=== PATIENT | female | born 1940 | race Caucasian/White ===

== ENCOUNTER 2020-09-24 09:55 | Outpatient (REF) | payer MEDICARE, SELFPAY ==
[2020-09-24 11:33] LABS: TSH reflex Free T4 0.43 uIU/mL (0.32-4.0)
== END 2020-09-24 09:56 | disposition home or self-care (01) ==
LOC: HO.LAB 09:55
PROVIDERS: PCP Internal Medicine; Visit Provider Internal Medicine
DX: E03.9 Hypothyroidism, unspecified (principal)
CPT/HCPCS: 36415; 84443

== ENCOUNTER 2020-10-03 14:45 | Outpatient (REF) | payer MEDICARE, SELFPAY ==
--- NOTE | ~2020-10-03 | XR_ITS ---
EXAMINATION: RIGHT HAND AND MANDIBLE. CLINICAL INFORMATION: Hypothyroidism. COMPARISON: None TECHNIQUE: 6 views right mandible and 3 views right hand FINDINGS: MANDIBLE: There is a normal symmetry of bilateral mandible rami and the body of the mandible. Bilateral TM joints have symmetrical joint space and are unremarkable. No fracture or dislocation seen. The soft tissues are normal. Visualized paranasal sinuses are well-aerated and clear. RIGHT HAND: There is no visible acute fracture, dislocation or subluxation seen. No bony erosive changes. There is a dense bone island distal and proximal phalanx fifth digit The soft tissues are normal. XR/XR mandible min 4V IMPRESSION: Unremarkable mandible Unremarkable right hand exam.
--- NOTE | ~2020-10-03 | XR_ITS ---
EXAMINATION: RIGHT HAND AND MANDIBLE. CLINICAL INFORMATION: Hypothyroidism. COMPARISON: None TECHNIQUE: 6 views right mandible and 3 views right hand FINDINGS: MANDIBLE: There is a normal symmetry of bilateral mandible rami and the body of the mandible. Bilateral TM joints have symmetrical joint space and are unremarkable. No fracture or dislocation seen. The soft tissues are normal. Visualized paranasal sinuses are well-aerated and clear. RIGHT HAND: There is no visible acute fracture, dislocation or subluxation seen. No bony erosive changes. There is a dense bone island distal and proximal phalanx fifth digit The soft tissues are normal. XR/XR hand RT min 3V IMPRESSION: Unremarkable mandible Unremarkable right hand exam.
== END 2020-10-03 14:46 | disposition home or self-care (01) ==
LOC: HO.XRAY 14:45
PROVIDERS: PCP Internal Medicine; Visit Provider Internal Medicine
DX: M79.641 Pain in right hand (principal); R68.84 Jaw pain; E03.9 Hypothyroidism, unspecified
CPT/HCPCS: 70110; 73130

== ENCOUNTER → 2020-12-31 13:23 | Outpatient (BNVA) | payer MEDICARE, SELFPAY | PROVIDERS: PCP Internal Medicine; Visit Provider Physician Assistant | DX: K59.09 Other constipation (principal) | CPT/HCPCS: Q3014 ==

== ENCOUNTER 2021-01-31 07:42 | Outpatient (REF) | payer MEDICARE, SELFPAY ==
[2021-01-31 08:17] LABS: MANUAL DIFF FLAG NO
[2021-01-31 08:23] LABS: Basophils Percent Auto 0.6 % (0-2); Eosinophils Absolute Auto 0.2 X10*3/uL (0.0-0.4); Eosinophils Percent Auto 2.1 % (0-4); Hemoglobin 12.6 g/dl (12.0-16.0); Imm Gran Abs Auto 0.02 X10*3/uL (0.00-0.03); Imm Gran Pct Auto 0.3 % (0.0-0.4); Lymphocytes Absolute Auto 1.8 X10*3/uL (1.2-4.9); Lymphocytes Percent Auto 25.2 % (20-40); Mean Corpuscular HGB Conc 32.3 g/dl (31.0-35.0); Mean Corpuscular Hemoglobin 30.7 pg (27.0-33.0); Mean Corpuscular Volume 95.1 fL (80-98); Mean Platelet Volume 9.7 fL (9.4-12.3); Monocytes Absolute Auto 1.3 X10*3/uL (0.1-1.2); Monocytes Percent Auto 17.9 % (2-11); Neutrophils Absolute Auto 3.9 X10*3/uL (2.0-8.3); Neutrophils Percent Auto 53.9 % (45-73); Platelet Count 290 X10*3/uL (160-400); Red Cell Distribution Width 13.7 % (11.0-16.0); White Blood Count 7.2 X10*3/uL (4.8-10.8)
[2021-01-31 08:44] LABS: Alanine Aminotransferase 27 U/L (0-31); Albumin Level 4.3 g/dL (3.5-5.0); Alkaline Phosphatase 78 U/L (39-117); Anion Gap 11 (12-20); Aspartate Amino Transferase 22 U/L (5-31); Bilirubin Total 0.4 mg/dL (0.0-1.0); Blood Urea Nitrogen 11 mg/dL (9-16); Calcium 9.4 mg/dL (8.4-10.2); Carbon Dioxide 27 mmol/L (22-29); Chloride 105 mmol/L (96-108); Cholesterol 216 mg/dL; Estimated Glomerular Filt Rate > 60; Glucose Fasting 86 mg/dL (60-99); HDL Cholesterol 54 mg/dL; LDL Cholesterol Calculated 129 mg/dl; Potassium 4.5 mmol/L (3.3-5.1); Sodium 138 mmol/L (135-145); Total Protein 6.6 g/dL (6.5-8.0); Triglycerides 165 mg/dL
[2021-01-31 09:05] LABS: Thyroid Stimulating Hormone 2.92 uIU/mL (0.32-4.0)
== END 2021-01-31 07:43 | disposition home or self-care (01) ==
LOC: HO.LAB 07:42
PROVIDERS: Physician Assistant; PCP Internal Medicine; Visit Provider Internal Medicine
DX: K59.09 Other constipation (principal); G25.0 Essential tremor; E78.5 Hyperlipidemia, unspecified
CPT/HCPCS: 36415; 80053; 80061; 84443; 85025

== ENCOUNTER 2021-02-17 08:34 | Outpatient (REF) | payer MEDICARE, SELFPAY ==
--- NOTE | ~2021-02-17 | MM_ITS ---
EXAMINATION: MM SCREENING DIGITAL BREAST TOMOSYNTHESIS, BILATERAL CLINICAL INFORMATION: Screening. Asymptomatic. The lifetime risk of breast cancer based on the Tyrer-Cuzick Model is 1.7%. COMPARISON: Mammography: February 12, 2020 and studies dating back to November 26, 2016 TECHNIQUE: Digital breast tomosynthesis is performed in both the craniocaudal and mediolateral oblique views along with computer-aided detection (CAD). Synthesized 2D images are generated from the tomosynthesis. FINDINGS: There are scattered areas of fibroglandular density (ACR BI-RADS breast composition Category b). There are no significant masses, abnormal calcifications, or other abnormalities. MM/MM tomosynthesis screening BI IMPRESSION: There are no significant changes from prior study. ASSESSMENT: BI-RADS 1: Negative RECOMMENDATION: Routine annual mammography screening. This patient's information was entered into a reminder system with a target due date for their next mammogram.
== END 2021-02-17 08:35 | disposition home or self-care (01) ==
LOC: HO.MAMMO 08:34
PROVIDERS: PCP Internal Medicine; Visit Provider Internal Medicine
DX: Z12.31 Encounter for screening mammogram for malignant neoplasm of breast (principal)
CPT/HCPCS: 77063; 77067

== ENCOUNTER 2021-03-19 08:00 | Outpatient (REF) | payer MEDICARE, SELFPAY ==
--- NOTE | ~2021-03-19 | MM_ITS ---
EXAMINATION: BONE DENSITOMETRY CLINICAL INDICATION: Menopause. COMPARISON: This is the patient's baseline examination. TECHNIQUE: Using a Contrib DXA System (software version: 13.1) manufactured by [employer], dual-energy x-ray absorptiometry was performed of the lumbar spine and left hip. The images are of good technical quality. Summary results are attached. FINDINGS: AP SPINE L1-L4: BMD 1.090 g/cm2, Z-score 1.5, T-score -0.7, normal. LEFT FEMUR, NECK: BMD 0.790 g/cm2, Z-score 0.6, T-score -1.8, osteopenia. LEFT FEMUR, TOTAL: BMD 0.814 g/cm2, Z-score 0.7, T-score -1.5, osteopenia. IDENTIFIED RISK FACTORS: Early menopause, hysterectomy, history of fracture (adult), height loss, bilateral oophorectomy, secondary osteoporosis. HISTORY OF FRACTURE: Foot. MEDICATIONS: Calcium, vitamin D. MM/XR DEXA axial skeleton IMPRESSION: 1. DIAGNOSIS: Osteopenia based on the lowest T-score value of -1.8 in the femoral neck applying World Health Organization criteria. 2. 10-YEAR FRACTURE RISK PREDICTION, FRAX: Major osteoporotic fracture (clinical spine, forearm, hip or shoulder) 18.2%. Hip fracture 4.7%. 3. Treatment Recommendations: NOF guidelines recommend consideration for treatment in postmenopausal women and men age 50 and older presenting with the following: -A hip or vertebral (clinical or morphometric) fracture. -T-score less than or equal to -2.5 at the femoral neck or spine after appropriate evaluation to exclude secondary causes. -Low bone mass at the hip or spine and a 10-year fracture probability by FRAX of greater than or equal to 3% for hip fracture or greater than or equal to 20% for major osteoporotic fracture based on the [place] adapted WHO algorithm. 4. Other Recommendations: All treatment decisions require clinical judgment and consideration of individual patient factors, including patient preferences, comorbidities, previous drug use, risk factors not captured in the FRAX model (e.g. frailty, falls, vitamin D deficiency, increased bone turnover, interval significant decline in bone density) and possible under or overestimation of fracture risk by FRAX. Additional medical evaluation for secondary cause of low bone mineral density may be appropriate. FUTURE SCAN RECOMMENDATION: People with diagnosed cases of osteoporosis or at high risk for fracture should have regular bone mineral density tests. For patients eligible for Medicare, routine testing is allowed once every 2 years. The testing frequency can be increased to one year for patients who have rapidly progressing disease, those who are receiving or discontinuing medical therapy to restore bone mass, or have additional risk factors.
== END 2021-03-19 08:01 | disposition home or self-care (01) ==
LOC: HO.MAMMO 08:00
PROVIDERS: Visit Provider Internal Medicine
DX: Z13.820 Encounter for screening for osteoporosis (principal); Z78.0 Asymptomatic menopausal state
CPT/HCPCS: 77080

== ENCOUNTER 2021-03-28 12:14 | Outpatient (REF) | payer MEDICARE, SELFPAY ==
[2021-03-28 13:10] LABS: Appearance Urine CLEAR; Color Urine YELLOW; Glucose Urine UA NEG (NEG); Leukocyte Esterase Urine NEG (NEG); Nitrite Urine NEG (NEG); Urine Blood NEG (NEG); Urine Ketones NEG (NEG); Urine Protein NEG (NEG-TRACE)
== END 2021-03-28 12:15 | disposition home or self-care (01) ==
LOC: HO.LAB 12:14
PROVIDERS: PCP Internal Medicine; Visit Provider Internal Medicine
DX: R30.0 Dysuria (principal)
CPT/HCPCS: 81003

== ENCOUNTER 2021-04-21 10:04 | Emergency (ER) | payer MEDICARE, SELFPAY ==
[2021-04-21 12:20] VITALS: BP 153/57; PULSE 70; RESP 18; TEMP 36.8; O2SAT 98; BMI 20.5
--- NOTE | 2021-04-21 12:25 | ED.DIZZY ---
HPI - Dizziness General Chief Complaint: General Medical Stated Complaint: Dizziness Time Seen by Provider: 04/21/21 12:24 Source: patient Mode of arrival: ambulatory Limitations: no limitations History of Present Illness MD elicited complaint: dizziness and lightheadedness Onset (ago): month(s) (1) Timing: gradual onset and intermittent Severity: mild Description: lightheadedness Context: change in body position History of similar symptoms: Yes Exacerbating factors: movement/ambulation and change in body position Relieving factors: nothing Associated symptoms: denies other symptoms Related Data Home Medications Medication Instructions Recorded Confirmed loratadine 10 mg tablet (Allergy 10 mg PO DAILY 04/19/20 02/05/21 Relief (loratadine)) famotidine 10 mg tablet 10 mg PO BID 06/10/20 02/05/21 cholecalciferol (vitamin D3) 25 25 mcg PO DAILY 01/13/21 02/05/21 mcg (1,000 unit) tablet glucosamine-chondroitin 500 mg-400 1 tab PO DAILY 01/13/21 02/05/21 mg tablet melatonin 3 mg tablet 3 mg PO BEDTIME PRN 01/13/21 02/05/21 methocarbamol 500 mg tablet 500 mg PO TID 01/13/21 02/05/21 Previous Rx's Medication Instructions Recorded levothyroxine 75 mcg tablet 75 mcg PO DAILY #90 tab 04/30/20 methylcellulose (laxative) 500 mg 500 mg PO BID #60 tab 12/13/20 tablet (Citrucel) gabapentin 400 mg capsule 400 mg PO TID 30 Days #90 cap 02/26/21 Allergies Allergy/AdvReac Type Severity Reaction Status Date / Time penicillin G Allergy Intermediate rash Verified 02/05/21 08:14 aspirin AdvReac Intermediate Contraindicated Verified 02/05/21 08:14 due to Cerebral vascular maformat Codeine Sulfate Allergy Intermediate rash Uncoded 02/05/21 08:14 Ibuprofen Allergy Intermediate hives Uncoded 02/05/21 08:14 Review of Systems Review of Systems: Constitutional : No Fever, No Chills ENT/Mouth : No sore throat, No Rhinorrhea Eyes: No Eye Pain, No Swelling, No Redness Cardiovascular : No Chest Pain, No SOB Respiratory : No Cough, No Sputum, No Wheezing Gastrointestinal : No Nausea, No Vomiting, No Diarrhea, No abdominal Pain, No Hematochezia, No Melena Genitourinary : No Dysuria, No Urinary Frequency, No Hematuria, Musculoskeletal : No joint pain, No Myalgias, No Joint Swelling Skin : No Skin Lesions, No rash Neuro : No Weakness, No Numbness, pos Dizziness, No Headache Psych : No Anxiety/Panic, No Depression Heme/Lymph: No Bruising, No Bleeding,No Lymphadenopathy Endocrine : No Polyuria, No Polydipsia All other systems reviewed and are negative [facility] Past Medical History Attestation statement: The following information was validated with the patient. Medical History Chronic constipation Familial tremor GERD (gastroesophageal reflux disease) Hypothyroidism Jaw pain Right hand pain Tethered cord Voice hoarseness Surgical History H/O inguinal hernia repair Hx of tonsillectomy S/P TC-BSO Family History Family History Mother IBS (irritable bowel syndrome) Skin cancer Father Heart disease Social History Social History Household Members Other:: Rehab Housing: Apartment Alcohol intake: never Patient Tobacco Use Status: Never used Tobacco e-Cigarette/Vaping Use: Never Used Second Hand Smoke Exposure: No Use of substances other than those prescribed or required for medical reasons: No Advance Directives: No Advance Directives Information Provided: No service: No Current occupational status: retired Physical Exam Vital Signs: Vital Signs: Last Vital Signs Temp 98.2 F 04/21/21 12:20 Pulse 72 04/21/21 15:59 Resp 16 04/21/21 14:00 BP 143/78 H 04/21/21 15:59 Pulse Ox 98 04/21/21 12:20 Body Mass Index 20.5 Appearance: Alert. Oriented X3. No acute distress. Eyes: Pupils equal, round and reactive to light. ENT: Pharynx normal. Neck: Normal inspection. Neck supple. CVS: Normal heart rate and rhythm. Pulses normal. Respiratory: No respiratory distress. Breath sounds normal. Abdomen: Soft and nontender. Skin: Skin warm and dry. Normal skin color. Normal skin turgor. Extremities: No lower extremity edema. No calf ttp Neuro: Oriented X 3. No motor deficit. No sensory deficit. steady gait Course Course Course Narrative: feels better after fluids, tethered cord syndrome could be cause of her orthostatic hypotension negative repeat orthostatic VS MDM - Dizziness MDM Narrative Medical decision making narrative: 81 yo female with hx of tethered cord due for surgery in 1 month, GERD, essential tremor not parkinsons comes in with c/o intermittent dizziness found to have orthostatic VS at home - she is not on any HTN medications or diuretics - no CP/SOB will obtain ortho VS, hydrate, basic labs, dispo per results and findings. Lab Data Result diagrams: 04/21/21 13:38 04/21/21 13:38 Labs: Lab Results 04/21/21 04/21/21 04/21/21 Range/Units 13:38 13:38 13:38 WBC 8.5 (4.8-10.8) X10*3/uL RBC 4.13 L (4.20-5.50) X10*6/uL Hgb 12.7 (12.0-16.0) g/dl Hct 40.0 (37.0-47.0) % MCV 96.9 (80.0-98.0) fL MCH 30.8 (27.0-33.0) pg MCHC 31.8 (31.0-35.0) g/dl RDW 11.6 (11.0-16.0) % Plt Count 236 (160-400) X10*3/uL MPV 10.0 (9.4-12.3) fL Immature Gran % (Auto) 0.1 (0.0-0.4) % Neut % (Auto) 60.4 (45-73) % Lymph % (Auto) 29.3 (20-40) % [place] % (Auto) 8.1 (2-11) % Eos % (Auto) 1.4 (0-4) % Baso % (Auto) 0.7 (0-2) % Lymph # (Auto) 2.5 (1.2-4.9) X10*3/uL [place] # (Auto) 0.7 (0.1-1.2) X10*3/uL Eos # (Auto) 0.1 (0.0-0.4) X10*3/uL Baso # (Auto) 0.1 (0.0-0.2) X10*3/uL Abs Immat Gran (auto) 0.01 (0.00-0.03) X10*3/uL Absolute Neuts (auto) 5.1 (2.0-8.3) x10*3/uL Absolute Nucleated RBC 0.000 (0.0-0.012) X10*3/uL Nucleated RBC % (auto) 0.0 (0.0-0.2) /100WBC Sodium 141 (135-145) mmol/L Potassium 4.2 (3.3-5.1) mmol/L Chloride 108 (96-108) mmol/L Carbon Dioxide 26 (22-29) mmol/L Anion Gap 11 L (12-20) BUN 17 H D (9-16) mg/dL Creatinine 0.86 (0.5-1.4) mg/dL Estim Creat Clear Calc 41.9 Estimated GFR > 60 Random Glucose 100 (60-115) mg/dL Calcium 8.9 (8.4-10.2) mg/dL Magnesium 2.4 (1.6-2.6) mg/dL Total Bilirubin 0.3 (0.0-1.0) mg/dL Direct Bilirubin 0.2 (0.0-0.5) mg/dL AST 21 (5-31) U/L ALT 18 (0-31) U/L Alkaline Phosphatase 88 (39-117) U/L Troponin I High Sens (<3.5-17.0) ng/L Total Protein 6.2 L (6.5-8.0) g/dL Albumin 4.1 (3.5-5.0) g/dL Urine Color Urine Appearance Urine pH (5.0-8.0) Ur Specific [place] (1.005-1.025) Urine Protein (NEG-TRACE) MG/DL Urine Glucose (UA) (NEG) MG/DL Urine Ketones (NEG) MG/DL Urine Blood (NEG) Urine Nitrite (NEG) Ur Leukocyte Esterase (NEG) COVID-19 ([facility]) Negative (Negative) COVID-19 Clin Com See Note 04/21/21 04/21/21 Range/Units 13:38 14:21 WBC (4.8-10.8) X10*3/uL RBC (4.20-5.50) X10*6/uL Hgb (12.0-16.0) g/dl Hct (37.0-47.0) % MCV (80.0-98.0) fL MCH (27.0-33.0) pg MCHC (31.0-35.0) g/dl RDW (11.0-16.0) % Plt Count (160-400) X10*3/uL MPV (9.4-12.3) fL Immature Gran % (Auto) (0.0-0.4) % Neut % (Auto) (45-73) % Lymph % (Auto) (20-40) % [place] % (Auto) (2-11) % Eos % (Auto) (0-4) % Baso % (Auto) (0-2) % Lymph # (Auto) (1.2-4.9) X10*3/uL [place] # (Auto) (0.1-1.2) X10*3/uL Eos # (Auto) (0.0-0.4) X10*3/uL Baso # (Auto) (0.0-0.2) X10*3/uL Abs Immat Gran (auto) (0.00-0.03) X10*3/uL Absolute Neuts (auto) (2.0-8.3) x10*3/uL Absolute Nucleated RBC (0.0-0.012) X10*3/uL Nucleated RBC % (auto) (0.0-0.2) /100WBC Sodium (135-145) mmol/L Potassium (3.3-5.1) mmol/L Chloride (96-108) mmol/L Carbon Dioxide (22-29) mmol/L Anion Gap (12-20) BUN (9-16) mg/dL Creatinine (0.5-1.4) mg/dL Estim Creat Clear Calc Estimated GFR Random Glucose (60-115) mg/dL Calcium (8.4-10.2) mg/dL Magnesium (1.6-2.6) mg/dL Total Bilirubin (0.0-1.0) mg/dL Direct Bilirubin (0.0-0.5) mg/dL AST (5-31) U/L ALT (0-31) U/L Alkaline Phosphatase (39-117) U/L Troponin I High Sens < 3.5 (<3.5-17.0) ng/L Total Protein (6.5-8.0) g/dL Albumin (3.5-5.0) g/dL Urine Color YELLOW Urine Appearance CLEAR Urine pH 6.0 (5.0-8.0) Ur Specific [place] <= 1.005 (1.005-1.025) Urine Protein NEG (NEG-TRACE) MG/DL Urine Glucose (UA) NEG (NEG) MG/DL Urine Ketones NEG (NEG) MG/DL Urine Blood NEG (NEG) Urine Nitrite NEG (NEG) Ur Leukocyte Esterase NEG (NEG) COVID-19 ([facility]) (Negative) COVID-19 Clin Com ECG Data Attestation: I personally reviewed and interpreted this ECG as follows: ECG interpretation date: 04/21/21 ECG interpretation time: 13:49 Interpretation: Rate: 60 Rhythm: NSR [place]: normal Normal P waves. Normal WENDIE. Normal QRS complex. ST T wave : nonspecific, no TORIBIO qTC: normal prior studies: no acute ischemia The study has been interpreted contemporaneously by me. . Discharge Plan Discharge Clinical Impression: Orthostatic hypotension Patient Disposition: Home, Self-Care Instructions: Hypotension (ED), Dizziness (ED) Additional Instructions: return to ED for any worsening symptoms or concerns Prescriptions: No Action levothyroxine 75 mcg tablet 75 mcg PO DAILY Qty: 90 RF: 1 Citrucel 500 mg tablet 500 mg PO BID Qty: 60 RF: 5 gabapentin 400 mg capsule 400 mg PO TID 30 Days Qty: 90 RF: 1 famotidine 10 mg tablet 10 mg PO BID RF: 0 glucosamine-chondroitin 500-400 mg tablet 1 tab PO DAILY RF: 0 melatonin 3 mg tablet 3 mg PO BEDTIME PRNRF: 0 cholecalciferol (vitamin D3) 25 mcg (1,000 unit) tablet 25 mcg PO DAILY RF: 0 methocarbamol 500 mg tablet 500 mg PO TID RF: 0 loratadine [Allergy Relief (loratadine)] 10 mg tablet 10 mg PO DAILY RF: 0 Referrals: Lizbeth Ruano MD [Primary Care Provider] - 2 days (if not better)
[2021-04-21 12:26] VITALS: BP 123/61; BP 147/65; PULSE 60; PULSE 63; PULSE 72
--- NOTE | 2021-04-21 12:47 | ECG_ITS ---
Test Reason : ORTHOSTATIC Blood Pressure : / mmHG Vent. Rate : 060 BPM Atrial Rate : 060 BPM P-R Int : 138 ms QRS Dur : 080 ms QT Int : 380 ms P-R-T Axes : 077 069 121 degrees QTc Int : 380 ms Normal sinus rhythm Nonspecific T wave abnormality Abnormal ECG No previous ECGs available Referred By: Shakila Pederson Electronically Signed By:JOLANTA GONZALEZ MD
[2021-04-21 13:45] LABS: MANUAL DIFF FLAG NO
[2021-04-21 13:50] LABS: Basophils Absolute Auto 0.1 X10*3/uL (0.0-0.2); Basophils Percent Auto 0.7 % (0-2); Eosinophils Absolute Auto 0.1 X10*3/uL (0.0-0.4); Eosinophils Percent Auto 1.4 % (0-4); Hemoglobin 12.7 g/dl (12.0-16.0); Imm Gran Abs Auto 0.01 X10*3/uL (0.00-0.03); Imm Gran Pct Auto 0.1 % (0.0-0.4); Lymphocytes Absolute Auto 2.5 X10*3/uL (1.2-4.9); Lymphocytes Percent Auto 29.3 % (20-40); Mean Corpuscular HGB Conc 31.8 g/dl (31.0-35.0); Mean Corpuscular Hemoglobin 30.8 pg (27.0-33.0); Mean Corpuscular Volume 96.9 fL (80.0-98.0); Monocytes Absolute Auto 0.7 X10*3/uL (0.1-1.2); Monocytes Percent Auto 8.1 % (2-11); Neutrophils Absolute Auto 5.1 x10*3/uL (2.0-8.3); Neutrophils Percent Auto 60.4 % (45-73); Platelet Count 236 X10*3/uL (160-400); Red Blood Count 4.13 X10*6/uL (4.20-5.50); Red Cell Distribution Width 11.6 % (11.0-16.0); White Blood Count 8.5 X10*3/uL (4.8-10.8)
[2021-04-21 14:00] VITALS: RESP 16
[2021-04-21 14:02] LABS: Alanine Aminotransferase 18 U/L (0-31); Albumin Level 4.1 g/dL (3.5-5.0); Alkaline Phosphatase 88 U/L (39-117); Anion Gap 11 (12-20); Aspartate Amino Transferase 21 U/L (5-31); Bilirubin Direct 0.2 mg/dL (0.0-0.5); Bilirubin Total 0.3 mg/dL (0.0-1.0); Blood Urea Nitrogen 17 mg/dL (9-16); COVID-19 Test Negative (Negative); Calcium 8.9 mg/dL (8.4-10.2); Carbon Dioxide 26 mmol/L (22-29); Chloride 108 mmol/L (96-108); Creatinine Clr Calc Pharmacy 41.9; Estimated Glomerular Filt Rate > 60; Glucose Random 100 mg/dL (60-115); Magnesium 2.4 mg/dL (1.6-2.6); Potassium 4.2 mmol/L (3.3-5.1); Sodium 141 mmol/L (135-145); Total Protein 6.2 g/dL (6.5-8.0)
[2021-04-21 14:05] LABS: Troponin-I High Sensitivity < 3.5 ng/L (<3.5-17.0)
[2021-04-21] MEDS: 0.9 % Sodium Chloride 1,000 ML 999 ML IV (14:20)
[2021-04-21 14:46] LABS: Appearance Urine CLEAR; Color Urine YELLOW; Glucose Urine UA NEG (NEG); Leukocyte Esterase Urine NEG (NEG); Nitrite Urine NEG (NEG); Specific Gravity - Urine <= 1.005 (1.005-1.025); Urine Blood NEG (NEG); Urine Ketones NEG (NEG); Urine Protein NEG (NEG-TRACE)
[2021-04-21 15:54] VITALS: BP 152/67; PULSE 61
[2021-04-21 15:56] VITALS: BP 150/72; PULSE 68
[2021-04-21 15:59] VITALS: BP 143/78; PULSE 72
== END 2021-04-21 16:04 | disposition home or self-care (01) ==
PROVIDERS: Emergency Provider Emergency Medicine; PCP Internal Medicine
DX: I95.1 Orthostatic hypotension (principal); Z20.822 Contact with and (suspected) exposure to COVID-19; R42 Dizziness and giddiness; Q06.8 Other specified congenital malformations of spinal cord
CPT/HCPCS: 36415; 80048; 80076; 81003; 83735; 84484; 85025; 87635; 93005; 96360; 99284; 99285

== ENCOUNTER → 2021-05-12 07:23 | Outpatient (REF) | payer MEDICARE, SELFPAY ==
--- NOTE | 2021-05-12 07:27 | HM_ITS ---
Conclusion : 1. Patient was monitored for total of 3 days 2. Baseline rhythm is NSR with average HR of 68 bpm 3. No significant pauses or bradycardia noted 4. 5 SVE runs longest 7 beats noted 5. Very rare PACs with total burden of 0.07% 6. Patient reported total of 16 events some of which correlated with isolated PACs MTDD
== END ==
LOC: HO.CARD 07:23
PROVIDERS: PCP Internal Medicine; Visit Provider Nurse Practitioner Family
DX: R42 Dizziness and giddiness (principal); R94.31 Abnormal electrocardiogram [ECG] [EKG]
CPT/HCPCS: 93242

== ENCOUNTER 2021-06-17 07:43 | Outpatient (REF) | payer MEDICARE, SELFPAY ==
[2021-06-17 08:24] LABS: Alanine Aminotransferase 22 U/L (0-31); Albumin Level 4.3 g/dL (3.5-5.0); Alkaline Phosphatase 83 U/L (39-117); Anion Gap 11 (12-20); Aspartate Amino Transferase 25 U/L (5-31); Bilirubin Total 0.6 mg/dL (0.0-1.0); Blood Urea Nitrogen 17 mg/dL (9-16); Calcium 9.7 mg/dL (8.4-10.2); Carbon Dioxide 28 mmol/L (22-29); Chloride 107 mmol/L (96-108); Cholesterol 246 mg/dL; Estimated Glomerular Filt Rate > 60; Glucose Fasting 94 mg/dL (60-99); HDL Cholesterol 58 mg/dL; LDL Cholesterol Calculated 166 mg/dl; Potassium 4.5 mmol/L (3.3-5.1); Sodium 141 mmol/L (135-145); Total Protein 6.9 g/dL (6.5-8.0); Triglycerides 112 mg/dL
[2021-06-17 08:44] LABS: Thyroid Stimulating Hormone 1.78 uIU/mL (0.32-4.0)
== END 2021-06-17 07:44 | disposition home or self-care (01) ==
LOC: HO.LAB 07:43
PROVIDERS: PCP Internal Medicine; Visit Provider Internal Medicine
DX: E78.5 Hyperlipidemia, unspecified (principal); E03.9 Hypothyroidism, unspecified; K21.9 Gastro-esophageal reflux disease without esophagitis
CPT/HCPCS: 36415; 80053; 80061; 84443

== ENCOUNTER → 2021-06-18 15:05 | Outpatient (BNVA) | payer MEDICARE, SELFPAY | PROVIDERS: PCP Internal Medicine; Referring Provider Internal Medicine; Visit Provider Internal Medicine | DX: I95.1 Orthostatic hypotension (principal); I49.1 Atrial premature depolarization; R94.31 Abnormal electrocardiogram [ECG] [EKG] | CPT/HCPCS: 99202 ==

== ENCOUNTER → 2021-08-01 10:21 | Outpatient (REF) | payer MEDICARE, SELFPAY ==
--- NOTE | 2021-08-01 10:24 | CA_ITS ---
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 The visually estimated ejection fraction is between 55-60%. - E/E prime ratio is between 8 and 15 consistent with indeterminate filling pressures. - Normal right ventricular cavity size and systolic function. - The left atrium is mildly dilated. Findings Left Ventricle Normal left ventricular size, thickness, systolic function, and wall motion. The visually estimated ejection fraction is between 55-60%. There is no evidence of regional wall motion abnormalities. Abnormal diastolic function is noted. Spectral Doppler is indicative of a pseudonormal filling pattern. E/E prime ratio is between 8 and 15 consistent with indeterminate filling pressures. Right Ventricle Normal right ventricular cavity size and systolic function. Atria The left atrium is mildly dilated. Aortic Valve Normal aortic valve structure and function. There is no aortic valve stenosis. There is no aortic valve regurgitation. Mitral Valve The mitral valve appears normal. There is mild mitral valve regurgitation. There is no mitral valve stenosis. Pulmonic Valve Normal pulmonic valve structure and function. There is no pulmonic valve regurgitation. Tricuspid Valve Normal tricuspid valve structure and function. There is trace tricuspid valve regurgitation. Normal right atrial pressure. There is no evidence of pulmonary hypertension. Great Vessels All visible segments of the aorta are normal in size. The visualized portions of the pulmonary artery and branches are normal. Venous The inferior vena cava is normal in size and collapses greater than 50% with inspiration. Pericardium/Pleural There is no evidence of pericardial effusion. Prior Study Comparison No prior study available for comparison. Measurements 2D Linear Measurements IVSd: 0.73 0.6-0.9/0.6-1.0 cm LVIDd: 4.03 3.9-5.3/4.2-5.9 cm LVIDd Index: 2.67 2.4-3.2/2.2-3.1 cm/m2 LVIDs: 2.71 2.0-3.6 cm LVPWd: 0.74 0.7-1.1 cm LA Diam: 3.40 2.7-3.8/3.0-4.0 cm LAIDs Index: 2.25 1.5-2.3 cm/m2 LV Mass: 105.24 67-162/88-224 g LV Mass Index: 69.70 43-95/49-115 g/m2 LVOT Diam: 1.90 3.0+(-)1.3 cm 2D Systolic Function EF 4C: 58.40 >55% EF 2C: 57.40 >55% EF BiP: 56.20 >55% Mitral Valve MV Pk E: 0.83 MV PK A: 0.63 MV Decel Time: 173.00 E/A: 1.30 E'Lateral: 6.20 E'Medial: 5.87 E/E' Med: 14.20 E/E' Lat: 13.40 PHT: 51.00 MVA PHT: 4.31 Decel [place]: 4.79 Aortic Valve AoV Pk Dariusz: 0.86 AoV Mn Dariusz: 0.63 AoV VTI: 0.22 AoV Pk Grad: 3.00 Aov Mn Grad: 2.00 LIZANDRO Cont.VTI: 2.31 LVOT LVOT Pk Dariusz: 0.74 LVOT Mn Dariusz: 0.54 LVOT VTI: 0.18 LVOT Pk Grad: 2.00 LVOT Mn Grad: 1.00 LVOT Diam: 1.90 LVOT Area: 2.84 Diastolic Function MV Pk E: 0.83 MV Pk A: 0.63 E/A: 1.30 E'Medial: 5.87 E/E' Med: 14.20 E' Laterial: 6.20 E/E' Lat: 13.40 Right Ventricle TAPSE (mm): 23.30 TVS' Dariusz: 9.57 Tricuspid Valve TR Pk Dariusz: 2.33 TR Pk Grad: 22.00 RA Press: 3.00 RVSP: 25.00 Great Vessels Aorta Sinus of Valsalva: 2.42 2.0-3.5 cm Ao Arch: 2.20 Updated in Other Vendor System with Status of Final Solo Louis MD electronically signed on 08/03/2021 12:03:21 PM with status of Final
== END ==
LOC: HO.CARD 10:21
PROVIDERS: PCP Internal Medicine; Visit Provider Internal Medicine
DX: I95.1 Orthostatic hypotension (principal)
CPT/HCPCS: 93306

== ENCOUNTER → 2021-09-18 08:02 | Outpatient (BNVA) | payer MEDICARE, SELFPAY | PROVIDERS: PCP Internal Medicine; Referring Provider Internal Medicine; Visit Provider Internal Medicine | DX: R94.31 Abnormal electrocardiogram [ECG] [EKG] (principal); I95.1 Orthostatic hypotension; I49.1 Atrial premature depolarization; I51.89 Other ill-defined heart diseases | CPT/HCPCS: 99212 ==

== ENCOUNTER 2021-11-03 06:33 | Outpatient (REF) | payer MEDICARE, SELFPAY ==
[2021-11-03 07:59] LABS: Alanine Aminotransferase 34 U/L (0-31); Albumin Level 4.4 g/dL (3.5-5.0); Alkaline Phosphatase 82 U/L (39-117); Anion Gap 13 (12-20); Aspartate Amino Transferase 33 U/L (5-31); Bilirubin Total 0.8 mg/dL (0.0-1.0); Blood Urea Nitrogen 16 mg/dL (9-16); Calcium 9.6 mg/dL (8.4-10.2); Carbon Dioxide 26 mmol/L (22-29); Chloride 107 mmol/L (96-108); Cholesterol 155 mg/dL; Estimated Glomerular Filt Rate 58; Glucose Fasting 90 mg/dL (60-99); HDL Cholesterol 56 mg/dL; LDL Cholesterol Calculated 85 mg/dl; Sodium 141 mmol/L (135-145); Total Protein 6.7 g/dL (6.5-8.0); Triglycerides 71 mg/dL
[2021-11-03 08:11] LABS: Thyroid Stimulating Hormone 0.91 uIU/mL (0.32-4.0)
[2021-11-07 12:02] LABS: Vitamin D 25-OH, D2 <4 ng/mL; Vitamin D 25-OH, D3 37 ng/mL; Vitamin D 25-OH, Total 37 ng/mL (30-100)
== END 2021-11-03 06:34 | disposition home or self-care (01) ==
LOC: HO.LAB 06:33
PROVIDERS: PCP Internal Medicine; Visit Provider Internal Medicine
DX: E03.9 Hypothyroidism, unspecified (principal); E78.5 Hyperlipidemia, unspecified; E55.9 Vitamin D deficiency, unspecified; K21.9 Gastro-esophageal reflux disease without esophagitis
CPT/HCPCS: 36415; 80053; 80061; 82306; 84443

== ENCOUNTER → 2021-12-02 12:51 | Outpatient (BNVA) | payer MEDICARE, SELFPAY | PROVIDERS: PCP Internal Medicine; Referring Provider Internal Medicine; Visit Provider Physician Assistant | DX: K58.9 Irritable bowel syndrome, unspecified (principal) | CPT/HCPCS: 99212 ==

== ENCOUNTER 2022-03-06 11:12 | Outpatient (REF) | payer MEDICARE, SELFPAY ==
--- NOTE | ~2022-03-06 | MM_ITS ---
EXAMINATION: MM SCREENING DIGITAL BREAST TOMOSYNTHESIS, BILATERAL CLINICAL INFORMATION: Screening. Asymptomatic. The lifetime risk of breast cancer based on the Tyrer-Cuzick Model is under 2%. COMPARISON: Mammography: 02/17/2021, 02/12/2020, 01/11/2019 TECHNIQUE: Digital breast tomosynthesis is performed in both the craniocaudal and mediolateral oblique views along with computer-aided detection (CAD). Synthesized 2D images are generated from the tomosynthesis. Additional left MLO view is provided. FINDINGS: There are scattered areas of fibroglandular density (ACR BI-RADS breast composition Category b). There are no significant masses, abnormal calcifications, or other abnormalities. Parenchymal pattern is similar to prior exams. No developing density. Dermal lesion again noted overlying the posterior medial left breast. The axilla are unremarkable. MM/MM tomosynthesis screening BI IMPRESSION: No mammographic evidence of malignancy. ASSESSMENT: BI-RADS 2: Benign RECOMMENDATION: Routine annual mammography screening. This patient's information was entered into a reminder system with a target due date for their next mammogram.
== END 2022-03-06 11:13 | disposition home or self-care (01) ==
LOC: HO.MAMMO 11:12
PROVIDERS: PCP Internal Medicine; Visit Provider Internal Medicine
DX: Z12.31 Encounter for screening mammogram for malignant neoplasm of breast (principal)
CPT/HCPCS: 77063; 77067

== ENCOUNTER 2022-03-19 07:04 | Outpatient (REF) | payer MEDICARE, SELFPAY ==
[2022-03-19 09:56] LABS: Alanine Aminotransferase 27 U/L (0-31); Albumin Level 4.3 g/dL (3.5-5.0); Alkaline Phosphatase 82 U/L (39-117); Anion Gap 13 (12-20); Aspartate Amino Transferase 28 U/L (5-31); Bilirubin Total 0.6 mg/dL (0.0-1.0); Blood Urea Nitrogen 21 mg/dL (9-16); Calcium 9.4 mg/dL (8.4-10.2); Carbon Dioxide 28 mmol/L (22-29); Chloride 106 mmol/L (96-108); Cholesterol 140 mg/dL; Estimated Glomerular Filt Rate 57; Glucose Fasting 84 mg/dL (60-99); HDL Cholesterol 58 mg/dL; LDL Cholesterol Calculated 72 mg/dl; Potassium 4.5 mmol/L (3.3-5.1); Sodium 142 mmol/L (135-145); Total Protein 6.3 g/dL (6.5-8.0); Triglycerides 54 mg/dL
[2022-03-19 09:58] LABS: Vitamin D 25-OH Total 41.1 ng/mL (>30)
== END 2022-03-19 07:05 | disposition home or self-care (01) ==
LOC: HO.LAB 07:04
PROVIDERS: PCP Internal Medicine; Visit Provider Internal Medicine
DX: E78.5 Hyperlipidemia, unspecified (principal); E78.00 Pure hypercholesterolemia, unspecified; E03.9 Hypothyroidism, unspecified; E55.9 Vitamin D deficiency, unspecified
CPT/HCPCS: 36415; 80053; 80061; 82306; 84443

== ENCOUNTER 2022-09-15 06:55 | Outpatient (REF) | payer MEDICARE, SELFPAY ==
[2022-09-15 08:41] LABS: Alanine Aminotransferase 27 U/L (0-31); Albumin Level 4.3 g/dL (3.5-5.0); Alkaline Phosphatase 91 U/L (39-117); Anion Gap 11 (12-20); Aspartate Amino Transferase 28 U/L (5-31); Bilirubin Total 0.7 mg/dL (0.0-1.0); Blood Urea Nitrogen 21 mg/dL (9-16); Calcium 9.1 mg/dL (8.4-10.2); Carbon Dioxide 26 mmol/L (22-29); Chloride 108 mmol/L (96-108); Cholesterol 162 mg/dL; Estimated Glomerular Filt Rate 58; Glucose Fasting 89 mg/dL (60-99); HDL Cholesterol 52 mg/dL; LDL Cholesterol Calculated 94 mg/dl; Potassium 4.4 mmol/L (3.3-5.1); Sodium 141 mmol/L (135-145); Total Protein 6.3 g/dL (6.5-8.0); Triglycerides 81 mg/dL
[2022-09-15 09:02] LABS: Thyroid Stimulating Hormone 0.75 uIU/mL (0.32-4.0)
== END 2022-09-15 06:56 | disposition home or self-care (01) ==
LOC: HO.LAB 06:55
PROVIDERS: PCP Internal Medicine; Visit Provider Internal Medicine
DX: E03.9 Hypothyroidism, unspecified (principal); E78.00 Pure hypercholesterolemia, unspecified; E78.5 Hyperlipidemia, unspecified
CPT/HCPCS: 36415; 80053; 80061; 84443

== ENCOUNTER 2022-11-10 09:00 | Outpatient (RCR) | payer MEDICARE, SELFPAY ==
--- NOTE | 2022-10-09 12:10 | MHC.OT.EP ---
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 Sleeping on her side Alleviating Factors: Avoiding Assessment: Pt is an 82 yo female with a 3 year ho right hand pain worsening over the past six months. 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 Thank you once again for your referral.
--- NOTE | 2022-11-10 13:44 | MHC.OT.DC ---
[address] [phone] F: [phone] Occupational Therapy Discharge Note Patient Name: Marly Ortiz Provider: Lizbeth Alvarenga Diagnosis: Right hand pain Date of Surgery: Date of Evaluation: 10/09/22 Date of Discharge: 11/10/22 Treatments to Date: 5 Cancellations to Date: 0 No Shows to Date: 0 Discharge Status: Independent with HEP Recommend MD Follow-up Discharge Summary: Pt ia highly motivated however limiting OT to 1x a week. 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 She reports her bilateral hand radial wrist and thumb pain aggravated with use and with sleeping on her side. Pt right small finger extensor tendon subluxs with a full fist causing pain and difficulty with right hand use She is independent in self management as able however is significantly limited due to pain and weakness Pt will benefit from further testing to identify nerve involvement and referral to a hand surgeon. Electronically Signed By: Phoebe Gonzáles OT CHT CLT Reviewed/agree with student documentation: Therapist: Please Sign and return to therapist, thank you for your referral.
== END 2022-11-10 13:53 | disposition home or self-care (01) ==
LOC: HO.OT 09:00
PROVIDERS: PCP Internal Medicine; Visit Provider Internal Medicine
DX: M79.641 Pain in right hand (principal)
CPT/HCPCS: 97033; 97110; 97112; 97166; 97530

== ENCOUNTER 2023-02-11 08:53 | Outpatient (AMB) | payer MEDICARE, SELFPAY ==
[2023-02-11 08:56] VITALS: BP 110/68; PULSE 65; O2SAT 99; BMI 20.9
--- NOTE | 2023-02-11 08:56 | AM.OFFVISMDC ---
Intake Vital Signs 02/11/23 08:56 Height 5 ft 2.5 in Weight 116 lb BMI 20.9 BP 110/68 Blood Pressure Location Lt brachial Position Sitting Pulse 65 Pulse Source Pulse Oximeter Temp Source Skin Pulse Oximetry (%) 99 Oxygen Delivery Method Room Air Intake Visit Reasons: SAWV Intake Note: Patient is here for an Annual Wellness Visit. 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 Required: No Allergies penicillin G Allergy (Intermediate, Verified 02/11/23 09:10) rash aspirin Adverse Reaction (Intermediate, Verified 02/11/23 09:10) Contraindicated due to Cerebral vascular maformat Codeine Sulfate Allergy (Intermediate, Uncoded 02/11/23 09:10) rash Ibuprofen Allergy (Intermediate, Uncoded 02/11/23 09:10) hives Medication List - Last Reconciled 02/11/23 by JAYLEEN Sanchez atorvastatin 10 mg PO BEDTIME 90 days calcium carbonate-vitamin D3 500 mg-10 mcg (400 unit) 1 tab PO DAILY cetirizine (All Day Allergy (cetirizine)) 10 mg PO DAILY PRN 30 days cholecalciferol (vitamin D3) 25 mcg PO DAILY famotidine 10 mg PO BID fluticasone propionate 50 mcg/actuation (Flonase Allergy Relief) 1 spray intranasal DAILY 30 days glucosamine-chondroitin 500-400 mg 1 tab PO DAILY levothyroxine 75 mcg PO DAILY methylcellulose (laxative) (Citrucel) 500 mg PO BID omeprazole 20 mg PO DAILY PRN 90 days polyethylene glycol 3350 17 grams PO DAILY simethicone (Gas Relief (simethicone)) 160 mg (2 x 80 mg) PO BID-TID 30 days HPI SAWV HPI Details Patient is an 82-year-old female who presents today for subsequent wellness visit. Patient Dr. Li. Patient is up-to-date with immunizations. Patient has an upcoming mammogram 02/2023. Bone density screen 03/19/2021 which showed osteopenia. [place] of care was reviewed with the patient and she was provided with a screening schedule. Healthcare proxy and MOLST forms on file. [facility] Medical History Urge urinary incontinence Pure hypercholesterolemia Tethered cord Chronic constipation Jaw pain Right hand pain Familial tremor GERD (gastroesophageal reflux disease) Voice hoarseness Hypothyroidism Surgical History History of colonoscopy S/P TC-BSO H/O inguinal hernia repair Hx of tonsillectomy Family History Mother IBS (irritable bowel syndrome) Skin cancer Dementia Father Heart disease Social History Household Members Other:: Rehab Housing: Apartment Alcohol intake: current Alcohol intake frequency: a few times a month Alcohol type: wine Patient Tobacco Use Status: Never used Tobacco e-Cigarette/Vaping Use: Never Used Second Hand Smoke Exposure: No service: No Current occupational status: retired Cognitive needs: No Hearing needs: No Vision needs: Yes Questionnaire Medicare Wellness Checkup What [age] your [age]?: 70-79 (82) What gender do you identify with?: female During the past 4 weeks, how much have you been bothered by emotional problems such as feeling anxious, depressed, irritable, sad or downhearted, and blue?: not at all During the past 4 weeks, has your physical & emotional health limited your social activities with family, friends, neighbors, or groups?: not at all During the past 4 weeks, how much bodily pain have you generally had?: very mild pain During the past 4 weeks, was someone available to help you if you needed & wanted help?: yes, as much as I wanted During the past 4 weeks, what was the hardest physical activity you could do for at least 2 minutes?: heavy Can you get to places out of walking distance without help? (For eg., can you travel alone on buses, taxis or drive your car?): Yes Can you go shopping for groceries or clothes without someone's help?: Yes Can you prepare your own meals?: Yes Can you do your housework without help?: Yes Because of any health problems, do you need the help of another person with your personal care needs such as eating, bathing, dressing or getting around the house?: No Can you handle your own money without help?: Yes During the past 4 weeks, how would you rate your health in general?: excellent During the past 4 weeks how have things been going for you?: very well; could hardly better Are you having difficulties driving your car?: no Do you always fasten your seat belt when you are in a car?: yes, usually During past 4 weeks, have you been bothered by the following: never: Sexual problems?, Trouble eating well?, Teeth or denture problems? and Problems using the telephone? and sometimes: Falling or dizzy when standing up and Tiredness or fatigue? Have you fallen 2 or more times in the past year?: No Are you afraid of falling?: No Are you a smoker?: no During the past 4 weeks, how many drinks of wine, beer, or other alcoholic beverages did you have?: 1 drink or less per week Do you exercise for about 20 minutes 3 or more times a week?: yes, most of the time Have you been given information to help with the following?: yes: Hazards in your house that might hurt you? and yes: Keeping track of your medications? How often do you have trouble taking medicines the way you have been told to take them?: I always take medicine as prescribed How confident are you that you can control & manage most of your health problems?: very confident What is your race?: White Mini Mental State Exam (MMSE) Orientation What is the (year) (season) (date) (day) (month)?: year, season, date, day and month Score Score: 5 Activity of Daily Living Bathing - sponge bath, tub bath or shower: receives no assistance (gets in/out by self, if usual bathing means Dressing - getting clothes from closets & drawers, including inner/outer garments & fasteners.: gets clothes & gets completely dressed without help Toileting - going to the 'toilet room' for urine/bowel elimination & cleaning self/arranging clothes: goes to toilet room, cleans self, arranges clothes without help Transfer: moves in & out of bed and chair without help (may use support object) Continence: controls urination/bowel movements completely by self Feeding: feeds self without help Total Score: 0 Information obtained from: patient Using telephone: independent Traveling: independent Shopping: independent Preparing meals: independent Housework: independent Taking medicine: independent Managing money: independent PHQ-9 Over the last 2 weeks, how often have you been bothered by any of the following problems? 1. Little interest or pleasure in doing things: not at all 2. Feeling down, depressed, or hopeless: not at all 3. Trouble falling or staying asleep, or sleeping too much: not at all 4. Feeling tired or having little energy: not at all 5. Poor appetite or overeating: not at all 6. Feeling bad about yourself - or that you are a failure or have let yourself or your family down: not at all 7. Trouble concentrating on things, such as reading the newspaper or watching television: not at all 8. Moving or speaking so slowly that other people could have noticed. Or the opposite - being so fidgety or restless that you have been moving around a lot more than usual: not at all 9. Thoughts that you would be better off or of hurting yourself in some way: not at all Total score: 0 Depression Screening Interpretation: Negative 21831 - PHQ-9 Billing: Yes Source: Developed by Drs. Diaz Wylie, Bruna Calloway, Ross Sorto and colleagues, with an educational joanne from [employer]. Physical Exam Vital Signs: Last Vital Signs Pulse 65 02/11/23 08:56 BP 110/68 02/11/23 08:56 Pulse Ox 99 02/11/23 08:56 Oxygen Delivery Method Room Air 02/11/23 08:56 BMI result Body Mass Index 20.9 Const General: cooperative and no acute distress Orientation/consciousness: patient oriented x3 HEENT Other: Whisper test: pass Neuro Other: Balance: Normal Get up and walk: able to Romberg: negative Tandem gait: able to General: patient oriented x3 Assessment & Plan Assessment & Plan (1) Adult general medical exam: Code(s): Z00.00 - Encounter for general adult medical examination without abnormal findings (2) Urge urinary incontinence: Code(s): N39.41 - Urge incontinence Plan: Timed voiding (3) Pure hypercholesterolemia: Code(s): E78.00 - Pure hypercholesterolemia, unspecified Plan: Continue current treatment Low-cholesterol diet (4) PAC (premature atrial contraction): Code(s): I49.1 - Atrial premature depolarization Plan: Patient was seen by Cardiology in the past, patient reports no need to see more cardiology (5) Chronic constipation: Code(s): K59.09 - Other constipation Plan: Continue current treatment Increase fluid consumption and dietary fiber (6) GERD (gastroesophageal reflux disease): Code(s): K21.9 - Gastro-esophageal reflux disease without esophagitis Qualifiers: Esophagitis presence: esophagitis presence not specified Qualified Code(s): K21.9 - Gastro-esophageal reflux disease without esophagitis Plan: Continue current treatment Avoid GERD trigger foods (7) Hypothyroidism: Comment: cont same meds Code(s): E03.9 - Hypothyroidism, unspecified Qualifiers: Hypothyroidism type: unspecified Qualified Code(s): E03.9 - Hypothyroidism, unspecified Plan: Continue current treatment Quality Reporting (2019) Depression/Bipolar (159/160/161/177) PHQ-9: Total score: 0 Coding Level of Care Code Medicare Subsequent (G0439) Diagnoses Adult general medical exam Z00.00 Urge urinary incontinence N39.41 Pure hypercholesterolemia E78.00 PAC (premature atrial contraction) I49.1 Chronic constipation K59.09 Gastroesophageal reflux disease, unspecified whether esophagitis present K21.9 Esophagitis presence: esophagitis presence not specified Hypothyroidism, unspecified type E03.9 Hypothyroidism type: unspecified CPT Codes Advance Care Planning - Advance Care Planning discussion: On file, no changes ([id number]) Advance Care Planning - Time spent: 1-15 minutes, on File ([id number]) Advance Care Planning Advance Care Planning discussion: On file, no changes Date of discussion: 02/11/23 Who was present: pt and palliative senior np Forms completed: None Time spent: 1-15 minutes, on File Actual minutes spent: 1 Did not discuss due to Cultural/Spiritual beliefs: No
== END 2023-02-11 09:27 | disposition home or self-care (01) ==
PROVIDERS: Visit Provider Nurse Practitioner Family
DX: Z00.00 Encounter for general adult medical examination without abnormal findings (principal); N39.41 Urge incontinence; K21.9 Gastro-esophageal reflux disease without esophagitis; E03.9 Hypothyroidism, unspecified; E78.00 Pure hypercholesterolemia, unspecified; I49.1 Atrial premature depolarization; K59.09 Other constipation
CPT/HCPCS: 1123F; G0439

== ENCOUNTER 2023-03-12 08:59 | Outpatient (REF) | payer MEDICARE, SELFPAY | END 2023-03-12 09:00 | disposition home or self-care (01) | LOC: HO.MAMMO 08:59 | PROVIDERS: PCP Internal Medicine; Visit Provider Internal Medicine | DX: Z12.31 Encounter for screening mammogram for malignant neoplasm of breast (principal) | CPT/HCPCS: 77063; 77067 ==

== ENCOUNTER → 2023-03-12 09:15 | Outpatient (BNV) | payer MEDICARE, SELFPAY | PROVIDERS: PCP Internal Medicine; Visit Provider Radiology Diagnostic Radiology | DX: Z12.31 Encounter for screening mammogram for malignant neoplasm of breast (principal) | CPT/HCPCS: 77063; 77067 ==

== ENCOUNTER 2023-07-28 13:54 | Outpatient (REF) | payer MEDICARE, SELFPAY ==
[2023-07-28 17:16] LABS: Appearance Urine Clear; Color Urine Yellow; Glucose Urine UA Negative (Negative); Leukocyte Esterase Urine Trace (Negative); Nitrite Urine Negative (Negative); UMIC TRIGGER UACC YES; Urine Blood Negative (Negative); Urine Ketones Negative (Negative); Urine Protein Negative (Neg-Trace)
[2023-07-28 18:01] LABS: Bacteria Urine None Seen (None Seen); Hyaline Casts Urine 0-2 /LPF (0-2); RBC Urine 0-2 /HPF (0-2); Squamous Epithelial Cell Urine 0-2 /HPF (0-2); WBC Urine 0-5 /HPF (0-5)
== END 2023-07-28 13:55 | disposition home or self-care (01) ==
LOC: HO.LAB 13:54
PROVIDERS: PCP Internal Medicine; Visit Provider Internal Medicine
DX: R30.0 Dysuria (principal)
CPT/HCPCS: 81001

== ENCOUNTER 2023-08-12 07:48 | Outpatient (AMB) | payer MEDICARE, SELFPAY ==
[2023-08-12 07:53] VITALS: BP 118/64; BMI 20.9
--- NOTE | 2023-08-12 07:53 | MHC.PC.OV ---
Vital Signs 08/12/23 07:53 Height 5 ft 2.5 in Weight 116 lb BMI 20.9 BP 118/64 Blood Pressure Location Lt brachial Position Sitting Intake Visit Reasons: GERD Intake Note: Patient here for a follow up GERD Deflash And Wash Operator Required: No Accompanied by: Self / Same As Patient Allergies penicillin G Allergy (Intermediate, Verified 08/12/23 08:14) rash aspirin Adverse Reaction (Intermediate, Verified 08/12/23 08:14) Contraindicated due to Cerebral vascular maformat Codeine Sulfate Allergy (Intermediate, Uncoded 08/12/23 08:14) rash Ibuprofen Allergy (Intermediate, Uncoded 08/12/23 08:14) hives Medication List - Last Reconciled 08/12/23 by Lizbeth Alvarenga MD atorvastatin 10 mg PO BEDTIME 90 days azithromycin 250 mg PO DAILY 5 days calcium carbonate-vitamin D3 500 mg-10 mcg (400 unit) 1 tab PO DAILY cholecalciferol (vitamin D3) 25 mcg PO DAILY famotidine 20 mg PO DAILY fluticasone propionate 50 mcg/actuation (Flonase Allergy Relief) 1 spray intranasal DAILY 30 days glucosamine-chondroitin 500-400 mg 1 tab PO DAILY levothyroxine 75 mcg PO DAILY loratadine (Allergy Relief (loratadine)) 10 mg PO DAILY methylcellulose (laxative) (Citrucel) 500 mg PO BID polyethylene glycol 3350 17 grams PO DAILY simethicone (Gas Relief (simethicone)) 160 mg (2 x 80 mg) PO BID-TID 30 days Tobacco use date assessed: 08/12/23 Fall risk assessment: No Falls in past year Last assessed Fall Risk: 08/12/23 Dental Screening Dental Screen Date: 08/12/23 Did you have a dental visit in the last 12 months?: Yes Did you have a dental problem in the last 6 months where you did not have access to dental care?: No Was dental information given to patient?: Patient has dentist HPI HPI Comments History of Present Illness Details This is an 83-year-old female with pure hypercholesterolemia, chronic GERD, hypothyroidism and chronic constipation that complains of some neck pain with certain head positions radiating to the right arm causing hand weakness and occasional numbness. This has been happening for few months. Lipid panel and TSH will be order for next time. Patient is compliant with her medications. GERD has been stable with famotidine. No chest pain or shortness of breath. Constipation has been stable with MiraLax and Citrucel. [facility] Medical History (Updated 08/12/23 @ 08:56 by Lizbeth Alvarenga MD) Urge urinary incontinence Pure hypercholesterolemia Tethered cord Chronic constipation Jaw pain Right hand pain Familial tremor GERD (gastroesophageal reflux disease) Voice hoarseness Hypothyroidism Surgical History History of colonoscopy S/P TC-BSO H/O inguinal hernia repair Hx of tonsillectomy Family History Mother IBS (irritable bowel syndrome) Skin cancer Dementia Father Heart disease Social History Household Members Other:: Rehab Housing: Apartment Alcohol intake: current Alcohol intake frequency: a few times a month Alcohol type: wine Patient Tobacco Use Status: Never used Tobacco e-Cigarette/Vaping Use: Never Used Second Hand Smoke Exposure: No service: No Current occupational status: retired Cognitive needs: No Hearing needs: No Vision needs: Yes Questionnaire PHQ-9 Over the last 2 weeks, how often have you been bothered by any of the following problems? 1. Little interest or pleasure in doing things: not at all 2. Feeling down, depressed, or hopeless: not at all 3. Trouble falling or staying asleep, or sleeping too much: not at all 4. Feeling tired or having little energy: not at all 5. Poor appetite or overeating: not at all 6. Feeling bad about yourself - or that you are a failure or have let yourself or your family down: not at all 7. Trouble concentrating on things, such as reading the newspaper or watching television: not at all 8. Moving or speaking so slowly that other people could have noticed. Or the opposite - being so fidgety or restless that you have been moving around a lot more than usual: not at all 9. Thoughts that you would be better off or of hurting yourself in some way: not at all Total score: 0 Depression Screening Interpretation: Negative Depression Screening Done: Yes 05607 - PHQ-9 Billing: Yes Source: Developed by Drs. Diaz Wylie, Bruna Calloway, Ross Sorto and colleagues, with an educational joanne from [employer]. Thrive Questionnaire Date Thrive assessed: 08/12/23 I am a: Patient What is your living situation today?: I have a steady place to live Within the past 12 months, did the food you bought not last and you didn't have the money to get more?: Never true Within the past 12 months, did you worry whether your food would run out before you got money to buy more?: Never true Do you have trouble paying for medicines?: No Do you have trouble getting transportation to medical appointments?: No Do you have trouble paying your heating and electricity bill?: No Do you have trouble taking care of your child, family member or friend?: No Do you have trouble with day-to-day activities such as bathing, preparing meals, shopping, managing finances, etc.?: No Are you currently unemployed and looking for a job?: No Are you interested in more education?: No Please select the resources that you would like help with: None Currently or been in a relationship where the following occur: no concerns reported THRIVE Score: 0 AUDIT C Alcohol Use Questionnaire (AUDIT-C) 1. How often do you have a drink containing alcohol?: 2-4 times a month 2. How many drinks containing alcohol do you have on a typical day when you are drinking?: 1 or 2 3. How often do you have six or more drinks on one occasion?: Never Total Score: 2 Score Reviewed/Action Taken: No LEXUS-7 AMB Questionnaire LEXUS-7 Date LEXUS - 7 assessed: 08/12/23 Feeling nervous, anxious, or on edge: 0 = Not at all Not being able to stop or control worryin = Not at all Worrying too much about different things: 0 = Not at all Trouble relaxin = Not at all Being so restless that it is hard to sit still: 0 = Not at all Becoming easily annoyed or irritable: 0 = Not at all Feeling afraid as if something awful might happen: 0 = Not at all Total LEXUS-7 score (0-4 normal; 5-9 mild; 10-14 moderate; 15-21 severe): 0 Source: Developed by Bruna Paredes B.W. Brodie, Ross Sorto and colleagues, with an educational joanne from [employer]. LEXUS-7 Assessment Billing LEXUS-7 Assessment Tool: LEXUS-7 Assessment 78720 Review of Systems Const All systems reviewed & are unremarkable except as noted in HPI and below Eyes Reports no additional complaints, Denies change in vision and Denies other visual disturbances Card Denies chest pain at rest, Denies chest pain with activity, Denies edema, Denies irregular heart rhythm, Denies claudication, Denies dyspnea, Denies dyspnea on exertion, Denies orthopnea, Denies paroxysmal nocturnal dyspnea and Denies slow heart rate Resp Denies cough, Denies dyspnea and Denies dyspnea on exertion GI Denies abdominal pain, Denies change in bowel habits, Denies excessive flatus, Denies nausea and Denies vomiting Denies urinary incontinence, Denies urinary hesitancy and Denies urinary urgency Physical exam (Primary Care) Vital Signs: Last Vital Signs BP 118/64 08/12/23 07:53 BMI result Body Mass Index 20.9 Tobacco/Smoking Status: Tobacco use Status Tobacco use date assessed 08/12/23 08/12/23 08:03 Patient Tobacco Use Status Never used Tobacco 08/12/23 08:03 e-Cigarette/Vaping Use Never Used 08/12/23 08:03 PHQ-9: PHQ-9 Score PHQ-9: Total score 0 08/12/23 08:19 Depression Screening Interpretation: Negative Thrive Assessment: Date of Thrive Assessment Date Thrive assessed 08/12/23 08/12/23 08:03 Currently or been in a relationship where the following occur: no concerns reported Eyes General: appearance normal, both eyes and all related structures Eyelids: Yes eyelids normal Conjunctivae: conjunctivae normal Neck Neck: Yes normal visual inspection and Yes supple Resp Effort & Inspection: normal respiratory effort Auscultation: clear to auscultation bilaterally Cardio Jugular venous distension: no JVD Rate: regular rate Rhythm: regular rhythm Heart sounds: S1 normal heart sound present and S2 normal heart sound present Extrem General: Yes full ROM Assessment and Plan Assessment & Plan (1) Cervical radiculopathy: Code(s): M54.12 - Radiculopathy, cervical region Plan: Referred to Ortho. (2) Pure hypercholesterolemia: Code(s): E78.00 - Pure hypercholesterolemia, unspecified Plan: Continue statins. Repeat lipid panel. (3) GERD (gastroesophageal reflux disease): Code(s): K21.9 - Gastro-esophageal reflux disease without esophagitis Qualifiers: Esophagitis presence: esophagitis presence not specified Qualified Code(s): K21.9 - Gastro-esophageal reflux disease without esophagitis Plan: Continue famotidine. (4) Hypothyroidism: Comment: cont same meds Code(s): E03.9 - Hypothyroidism, unspecified Qualifiers: Hypothyroidism type: unspecified Qualified Code(s): E03.9 - Hypothyroidism, unspecified Plan: Continue levothyroxine. (5) Chronic constipation: Code(s): K59.09 - Other constipation Plan: Continue Citrucel and MiraLax. Orders: Orders Lipid Panel 6 Months E78.5 - Hyperlipidemia, unspecified Comprehensive [place]. Panel Fast 6 Months E78.00 - Pure hypercholesterolemia, unspecified Vitamin D 25-OH Total 6 Months E55.9 - Vitamin D deficiency, unspecified Thyroid Stimulating Hormone 6 Months E03.9 - Hypothyroidism, unspecified XR DEXA axial skeleton Today N95.9 - Unspecified menopausal and perimenopausal disorder Referrals Orthopedics Referral M54.12 - Radiculopathy, cervical region Medications: New azithromycin Take 2 tabs the first day, then 1 tab for the next 4 days 250 mg PO DAILY 5 days 6 tabs 0RF Coding Level of Care Code Est Pt Level 4 (29553) Diagnoses Cervical radiculopathy M54.12 Pure hypercholesterolemia E78.00 Gastroesophageal reflux disease, unspecified whether esophagitis present K21.9 Esophagitis presence: esophagitis presence not specified Hypothyroidism, unspecified type E03.9 Hypothyroidism type: unspecified Chronic constipation K59.09 Additional Codes LEXUS-7 Assessment Billing - LEXUS-7 Assessment Tool: LEXUS-7 Assessment 00319 ([id number]) Time Spent (min) 25
== END 2023-08-12 08:32 | disposition home or self-care (01) ==
PROVIDERS: PCP Internal Medicine; Visit Provider Internal Medicine
DX: M54.12 Radiculopathy, cervical region (principal); E78.00 Pure hypercholesterolemia, unspecified; K21.9 Gastro-esophageal reflux disease without esophagitis; E03.9 Hypothyroidism, unspecified; K59.09 Other constipation
CPT/HCPCS: 99214

== ENCOUNTER 2023-08-26 08:12 | Outpatient (REF) | payer MEDICARE, SELFPAY ==
--- NOTE | ~2023-08-26 | MM_ITS ---
EXAMINATION: BONE DENSITOMETRY CLINICAL INDICATION: Unspecified menopausal and perimenopausal disorder. COMPARISON: Baseline BD dated 03/19/2021. TECHNIQUE: Using a [employer] DXA System (software version: 13.1) manufactured by [employer] dual-energy x-ray absorptiometry was performed of the lumbar spine and left hip. The images are of good technical quality. Summary results are attached. FINDINGS: LEFT FEMUR, NECK: Current: BMD 0.809 g/cm2, Z-score 0.9, T-score -1.6, osteopenia. Baseline: BMD 0.790 g/cm2. LEFT FEMUR, TOTAL: Current: BMD 0.858 g/cm2, Z-score 1.2, T-score -1.2, osteopenia, 5.4% increase from baseline (<5% change is not significant). Baseline: BMD 0.814 g/cm2. AP SPINE L1-L4: Current: BMD 1.112 g/cm2, Z-score 1.8, T-score -0.6, normal, 2.0% increase from baseline (<5% change is not significant). Baseline: BMD 1.090 g/cm2. IDENTIFIED RISK FACTORS: Early menopause, secondary osteoporosis, height loss, hysterectomy, bilateral oophorectomy. HISTORY OF FRACTURE: None listed. MEDICATIONS: Vitamin D, calcium. MM/XR DEXA axial skeleton IMPRESSION: 1. DIAGNOSIS: Osteopenia based on the lowest T-score value of -1.6 in the femoral neck applying World Health Organization criteria. 2. 10-YEAR FRACTURE RISK PREDICTION, FRAX: Major osteoporotic fracture (clinical spine, forearm, hip or shoulder) 12.0%. Hip fracture 3.4%. 3. Treatment Recommendations: NOF guidelines recommend consideration for treatment in postmenopausal women and men age 50 and older presenting with the following: -A hip or vertebral (clinical or morphometric) fracture. -T-score less than or equal to -2.5 at the femoral neck or spine after appropriate evaluation to exclude secondary causes. -Low bone mass at the hip or spine and a 10-year fracture probability by FRAX of greater than or equal to 3% for hip fracture or greater than or equal to 20% for major osteoporotic fracture based on the [place] adapted WHO algorithm. 4. Other Recommendations: All treatment decisions require clinical judgment and consideration of individual patient factors, including patient preferences, comorbidities, previous drug use, risk factors not captured in the FRAX model (e.g. frailty, falls, vitamin D deficiency, increased bone turnover, interval significant decline in bone density) and possible under or overestimation of fracture risk by FRAX. Additional medical evaluation for secondary cause of low bone mineral density may be appropriate. FUTURE SCAN RECOMMENDATION: People with diagnosed cases of osteoporosis or at high risk for fracture should have regular bone mineral density tests. For patients eligible for Medicare, routine testing is allowed once every 2 years. The testing frequency can be increased to one year for patients who have rapidly progressing disease, those who are receiving or discontinuing medical therapy to restore bone mass, or have additional risk factors.
== END 2023-08-26 08:13 | disposition home or self-care (01) ==
LOC: HO.MAMMO 08:12
PROVIDERS: PCP Internal Medicine; Visit Provider Internal Medicine
DX: Z13.820 Encounter for screening for osteoporosis (principal); Z78.0 Asymptomatic menopausal state
CPT/HCPCS: 77080

== ENCOUNTER 2023-08-28 12:23 | Outpatient (AMB) | payer MEDICARE, SELFPAY ==
--- NOTE | 2023-08-28 13:42 | MHC.OFFWIV ---
Intake Vital Signs 08/28/23 13:46 Height 5 ft 2.5 in BP 128/80 Blood Pressure Location Lt brachial Position Sitting Pulse 77 Pulse Source Pulse Oximeter Temp 97.4 F Temp Source Oral Pulse Oximetry (%) 93 Oxygen Delivery Method Room Air Intake Visit Reasons: White blisters near tonsils ([phone]) Intake Note: white blister near her tonsils and Dr Li on 08/12/23 and she was given a z-danielle and the blisters have changed and the large one has changed a bit and her throat is not sore pt denies any pain at all Patient Tobacco Use Status: Never used Tobacco Allergies penicillin G Allergy (Intermediate, Verified 08/28/23 13:50) rash aspirin Adverse Reaction (Intermediate, Verified 08/28/23 13:50) Contraindicated due to Cerebral vascular maformat Codeine Sulfate Allergy (Intermediate, Uncoded 08/28/23 13:50) rash Ibuprofen Allergy (Intermediate, Uncoded 08/28/23 13:50) hives HPI White blisters near tonsils ([phone]) HPI Details Patient is an 83-year-old female comes to the walk-in clinic as she is concerned about persistent asymptomatic blisters in the back of her throat. She reports that she had incidentally seen them herself just prior to her routine PCP appointment two weeks ago, and she had been put on a course of antibiotics at that time and was told to follow up if they persisted. She reports that she had completed the antibiotic, and while she still has no pain or discomfort, trouble swallowing or eating, cough, or other respiratory symptoms or associated complaints, she reports that she has been keeping an eye on the lesions as her PCP had advised. Apparently while the erythema has improved, one of them is becoming more white than before . She was concerned that this was Easter weekend, and she was going to be very busy and was inquiring if she had to consider taking another antibiotic. She knows that ENT referral was going to be considered if the lesions persisted. Reviewed past medical history with the patient [facility] Medical History (Updated 08/12/23 @ 08:56 by Lizbeth Alvarenga MD) Urge urinary incontinence Pure hypercholesterolemia Tethered cord Chronic constipation Jaw pain Right hand pain Familial tremor GERD (gastroesophageal reflux disease) Voice hoarseness Hypothyroidism Surgical History History of colonoscopy S/P TC-BSO H/O inguinal hernia repair Hx of tonsillectomy Family History Mother IBS (irritable bowel syndrome) Skin cancer Dementia Father Heart disease Social History Household Members Other:: Rehab Housing: Apartment Alcohol intake: current Alcohol intake frequency: a few times a month Alcohol type: wine Patient Tobacco Use Status: Never used Tobacco e-Cigarette/Vaping Use: Never Used Second Hand Smoke Exposure: No service: No Current occupational status: retired Cognitive needs: No Hearing needs: No Vision needs: Yes Physical Exam Vital Signs: Last Vital Signs Temp 97.4 F 08/28/23 13:46 Pulse 77 08/28/23 13:46 BP 128/80 08/28/23 13:46 Pulse Ox 93 08/28/23 13:46 Oxygen Delivery Method Room Air 08/28/23 13:46 Const General: cooperative, healthy appearing, comfortable, no acute distress, alert, awake, Physically active and well groomed; No anxious, diaphoretic, ill appearing, intoxicated appearing, poor hygiene or tired appearing Nutritional Appearance: average body habitus Limitations: no limitations HEENT Head: Yes normal to inspection, Yes normocephalic and Yes atraumatic Ears: hearing grossly normal bilaterally and external ears normal General nose exam: Normal external nose present, Normal nares present, No nasal polyps present, Normal nasal mucous membranes and turbinates present, Normal septum present and No nasal discharge present Face and sinus: Yes normal facial exam, Yes sinuses nontender and Yes face symmetric Mouth: Normal oral and palatal mucosa present, lip normal, tongue normal and no trismus Throat: Yes uvula midline, No peritonsillar mass, No postnasal drainage, No uvular edema, No cobblestoning and Yes other (Bilateral papular lesions on the palate. No ulceration, discharge, erythema) Eyes General: appearance normal, both eyes and all related structures Skin Other: Good color, warm and dry Psych Appearance: grossly normal Mental Status: mental status grossly normal Speech and movement: Normal speech and movement present Affect: normal affect Attitude: cooperative Thought process: Normal thought process present Insight: Good insight present (Psych) Judgement: Good judgement present (Psych) Assessment & Plan Assessment & Plan (1) Oropharyngeal lesion: Code(s): J39.2 - Other diseases of pharynx Plan: Patient is an 83-year-old female with asymptomatic incidental lesions visualized in the back of her throat. She is very concerned as this is Easter weekend and she is mandaeism, so she will be very busy with activities. She came enquiring if she should consider taking another antibiotic as she had been put on azithromycin 2 weeks ago and while the lesions did seem to be improving, they had not resolved. We discussed that she might have developed a viral syndrome that could have caused the lesions, however she has no symptoms indicative of a bacterial infection and I do not see a place for further antibiotic treatment. She is very reliable for follow-up, so I think she is safe to monitor this for another week or so and if this persists she can discuss ENT referral with PCP as had been briefly discussed at her routine appointment- as I cannot refer her to ENT through the walk-in. She was amenable to this plan, and knows to follow up sooner if she were to develop and any issues. Coding Level of Care Code Est Pt Level 4 (67548) Diagnoses Oropharyngeal lesion J39.2
[2023-08-28 13:46] VITALS: BP 128/80; PULSE 77; TEMP 36.3; O2SAT 93
== END 2023-08-28 15:05 | disposition home or self-care (01) ==
PROVIDERS: PCP Internal Medicine; Visit Provider Physician Assistant Medical
DX: J39.2 Other diseases of pharynx (principal)
CPT/HCPCS: 99214

== ENCOUNTER 2024-01-17 07:00 | Outpatient (RCR) | payer MEDICARE, SELFPAY | END 2024-01-18 08:35 | disposition home or self-care (01) | LOC: HO.PT 07:00 | PROVIDERS: PCP Internal Medicine; Visit Provider Orthopaedic Surgery | DX: M54.12 Radiculopathy, cervical region (principal) | CPT/HCPCS: 97110; 97140; 97161; 97535 ==

== ENCOUNTER 2024-02-14 06:59 | Outpatient (REF) | payer MEDICARE, SELFPAY ==
[2024-02-14 08:10] LABS: Appearance Urine Clear; Color Urine Yellow; Glucose Urine UA Negative (Negative); Leukocyte Esterase Urine Negative (Negative); Nitrite Urine Negative (Negative); Urine Blood Negative (Negative); Urine Ketones Negative (Negative); Urine Protein Negative (Neg-Trace)
[2024-02-14 08:22] LABS: Alanine Aminotransferase 23 U/L (0-31); Albumin Level 4.2 g/dL (3.5-5.0); Alkaline Phosphatase 76 U/L (39-117); Anion Gap 11 (12-20); Aspartate Amino Transferase 27 U/L (5-31); Bilirubin Total 0.7 mg/dL (0.0-1.0); Blood Urea Nitrogen 17 mg/dL (9-16); Calcium 9.6 mg/dL (8.4-10.2); Carbon Dioxide 26 mmol/L (22-29); Chloride 107 mmol/L (96-108); Cholesterol 149 mg/dL (<200); Estimated Glomerular Filt Rate 53; Glucose Fasting 94 mg/dL (60-99); HDL Cholesterol 59 mg/dL (>40); LDL Cholesterol Calculated 73 mg/dL (<100); Potassium 4.3 mmol/L (3.3-5.1); Sodium 140 mmol/L (135-145); Total Protein 6.6 g/dL (6.5-8.0); Triglycerides 88 mg/dL (<150)
[2024-02-14 08:28] LABS: Thyroid Stimulating Hormone 0.59 uIU/mL (0.32-4.0); Vitamin D 25-OH Total 44.5 ng/mL (>30)
== END 2024-02-14 07:00 | disposition home or self-care (01) ==
LOC: HO.LAB 06:59
PROVIDERS: PCP Internal Medicine; Visit Provider Internal Medicine
DX: E78.00 Pure hypercholesterolemia, unspecified (principal); E03.9 Hypothyroidism, unspecified; R30.0 Dysuria; E78.5 Hyperlipidemia, unspecified; E55.9 Vitamin D deficiency, unspecified
CPT/HCPCS: 36415; 80053; 80061; 81003; 82306; 84443

== ENCOUNTER 2024-02-16 08:49 | Outpatient (AMB) | payer MEDICARE, SELFPAY ==
[2024-02-16 08:57] VITALS: BP 120/64; BMI 20.7
--- NOTE | 2024-02-16 08:57 | AM.OFFVISMDC ---
Intake Vital Signs 02/16/24 08:57 Height 5 ft 2.5 in Weight 115 lb BMI 20.7 BP 120/64 Blood Pressure Location Lt brachial Position Sitting Intake Visit Reasons: SWV G0439 Intake Note: Patient here for a subsequent annual visit Electronics Technology Instructor Required: No Accompanied by: Self / Same As Patient Allergies penicillin G Allergy (Intermediate, Verified 02/16/24 09:13) rash aspirin Adverse Reaction (Intermediate, Verified 02/16/24 09:13) Contraindicated due to Cerebral vascular maformat Codeine Sulfate Allergy (Intermediate, Uncoded 02/16/24 09:13) rash Ibuprofen Allergy (Intermediate, Uncoded 02/16/24 09:13) hives Medication List - Last Reconciled 02/16/24 by Lizbeth Alvarenga MD atorvastatin 10 mg PO BEDTIME 90 days calcium carbonate-vitamin D3 500 mg-10 mcg (400 unit) 1 tab PO DAILY cholecalciferol (vitamin D3) 25 mcg PO DAILY clobetasol 0.05% 1 appl topical BID famotidine 20 mg PO DAILY glucosamine-chondroitin 500-400 mg 1 tab PO DAILY levothyroxine 75 mcg PO DAILY polyethylene glycol 3350 17 grams PO DAILY simethicone (Gas Relief (simethicone)) 160 mg (2 x 80 mg) PO BID-TID 30 days HPI HPI Comments History of Present Illness Details This is an 83-year-old female that comes for her Medicare wellness exam. Mammogram done 2023. DEXA scan done 2023 showing osteopenia. Ppp handed to patient. [place] of care updated. She has a voice tremor and head tremor due to familial tremor. Will see Neurology soon. Would like to restart propranolol for this matter. Also has hand arthritis and have seen hand surgeon with in the past year. Colonoscopy done 2019. [facility] Medical History (Updated 02/16/24 @ 12:03 by Lizbeth Alvarenga MD) Urge urinary incontinence Pure hypercholesterolemia Tethered cord Chronic constipation Jaw pain Right hand pain Familial tremor GERD (gastroesophageal reflux disease) Voice hoarseness Hypothyroidism Surgical History History of colonoscopy S/P TC-BSO H/O inguinal hernia repair Hx of tonsillectomy Family History Mother IBS (irritable bowel syndrome) Skin cancer Dementia Father Heart disease Social History Household Members Other:: Rehab Housing: Apartment Alcohol intake: current Alcohol intake frequency: a few times a month Alcohol type: wine Patient Tobacco Use Status: Never used Tobacco e-Cigarette/Vaping Use: Never Used Second Hand Smoke Exposure: No service: No Current occupational status: retired Cognitive needs: No Hearing needs: No Vision needs: Yes Questionnaire Medicare Wellness Checkup What is your age?: 82 or older What gender do you identify with?: female During the past 4 weeks, how much have you been bothered by emotional problems such as feeling anxious, depressed, irritable, sad or downhearted, and blue?: slightly During the past 4 weeks, has your physical & emotional health limited your social activities with family, friends, neighbors, or groups?: not at all During the past 4 weeks, how much bodily pain have you generally had?: very mild pain During the past 4 weeks, was someone available to help you if you needed & wanted help?: yes, as much as I wanted During the past 4 weeks, what was the hardest physical activity you could do for at least 2 minutes?: heavy Can you get to places out of walking distance without help? (For eg., can you travel alone on buses, taxis or drive your car?): Yes Can you go shopping for groceries or clothes without someone's help?: Yes Can you prepare your own meals?: Yes Can you do your housework without help?: Yes Because of any health problems, do you need the help of another person with your personal care needs such as eating, bathing, dressing or getting around the house?: No Can you handle your own money without help?: Yes During the past 4 weeks, how would you rate your health in general?: very good During the past 4 weeks how have things been going for you?: very well; could hardly better Are you having difficulties driving your car?: no Do you always fasten your seat belt when you are in a car?: yes, usually During past 4 weeks, have you been bothered by the following: never: Sexual problems?, Trouble eating well?, Teeth or denture problems? and Problems using the telephone?, seldom: Tiredness or fatigue? and sometimes: Falling or dizzy when standing up Have you fallen 2 or more times in the past year?: No Are you afraid of falling?: Yes Are you a smoker?: no During the past 4 weeks, how many drinks of wine, beer, or other alcoholic beverages did you have?: no alcohol at all Do you exercise for about 20 minutes 3 or more times a week?: yes, most of the time Have you been given information to help with the following?: yes: Hazards in your house that might hurt you? and yes: Keeping track of your medications? How often do you have trouble taking medicines the way you have been told to take them?: I always take medicine as prescribed How confident are you that you can control & manage most of your health problems?: very confident What is your race?: White Mini Mental State Exam (MMSE) Orientation What is the (year) (season) (date) (day) (month)?: year, season, date, day and month Where are we (state) (county) (town or city) (hospital) (floor)?: state, county, town or city, hospital/clinic and floor Registration Name of 3 unrelated objects clearly and slowly, then ask patient to repeat all 3 of them. (1st repeat determines score. Make sure they can repeat all three): object 1, object 2 and object 3 Attention & Calculation (CHOOSE ONE) Spell WORLD backwards (DLROW): 5 letters Recall Ask patient to repeat the 3 items from question #3.: object 1, object 2 and object 3 Language Show patient a wristwatch & ask what it is. Repeat for pencil.: watch and pencil Ask the patient to repeat the phrase 'No ifs, ands, or buts' after you.: correct Ask the patient to 'take a piece of paper with their right hand' 'fold paper in half' 'place paper on floor': take paper in right hand, fold paper in half and place paper on floor Print the sentence 'CLOSE YOUR EYES' on a piece. If patient actually closes eyes then score.: followed written direction Give patient a blank piece of paper & ask to write a sentence. Score if it contains a noun & verb.: sentence contains subject and verb Ask patient to copy figure of intersecting pentagons exactly. Score if all 10 angles & 2 intersects are included.: all 10 angles present & 2 are intersected Score Score: 30 Activity of Daily Living Bathing - sponge bath, tub bath or shower: receives no assistance (gets in/out by self, if usual bathing means Dressing - getting clothes from closets & drawers, including inner/outer garments & fasteners.: gets clothes & gets completely dressed without help Transfer: moves in & out of bed and chair without help (may use support object) Continence: has occasional 'accidents' Feeding: feeds self without help Total Score: 0 Information obtained from: patient Using telephone: independent Traveling: independent Shopping: independent Preparing meals: independent Housework: independent Taking medicine: independent Managing money: independent PHQ-9 Over the last 2 weeks, how often have you been bothered by any of the following problems? 1. Little interest or pleasure in doing things: not at all 2. Feeling down, depressed, or hopeless: not at all 3. Trouble falling or staying asleep, or sleeping too much: not at all 4. Feeling tired or having little energy: not at all 5. Poor appetite or overeating: not at all 6. Feeling bad about yourself - or that you are a failure or have let yourself or your family down: not at all 7. Trouble concentrating on things, such as reading the newspaper or watching television: not at all 8. Moving or speaking so slowly that other people could have noticed. Or the opposite - being so fidgety or restless that you have been moving around a lot more than usual: not at all 9. Thoughts that you would be better off or of hurting yourself in some way: not at all Total score: 0 Depression Screening Interpretation: Negative Depression Screening Done: Yes Source: Developed by Drs. Diaz Wylie, Bruna Calloway, Ross Sorto and colleagues, with an educational joanne from [employer] ([email or web address]). Fall Risk Assessment Fall Risk Assessment Fall risk assessment: No Falls in past year AUDIT C Alcohol Use Questionnaire (AUDIT-C) 1. How often do you have a drink containing alcohol?: 2-4 times a month 2. How many drinks containing alcohol do you have on a typical day when you are drinking?: 1 or 2 3. How often do you have six or more drinks on one occasion?: Never Total Score: 2 Thrive Questionnaire Date Thrive assessed: 02/16/24 I am a: Patient What is your living situation today?: I have a steady place to live Within the past 12 months, did the food you bought not last and you didn't have the money to get more?: Never true Within the past 12 months, did you worry whether your food would run out before you got money to buy more?: Never true Do you have trouble paying for medicines?: No Do you have trouble getting transportation to medical appointments?: No Do you have trouble paying your heating and electricity bill?: No Do you have trouble taking care of your child, family member or friend?: No Do you have trouble with day-to-day activities such as bathing, preparing meals, shopping, managing finances, etc.?: No Are you currently unemployed and looking for a job?: No Are you interested in more education?: No Please select the resources that you would like help with: None Currently or been in a relationship where the following occur: No concerns reported THRIVE Score: 0 LEXUS-7 AMB Questionnaire LEXUS-7 Date LEXUS - 7 assessed: 02/16/24 Feeling nervous, anxious, or on edge: 1 = Several days Not being able to stop or control worryin = Not at all Worrying too much about different things: 0 = Not at all Trouble relaxin = Not at all Being so restless that it is hard to sit still: 0 = Not at all Becoming easily annoyed or irritable: 0 = Not at all Feeling afraid as if something awful might happen: 0 = Not at all Total LEXUS-7 score (0-4 normal; 5-9 mild; 10-14 moderate; 15-21 severe): 1 Source: Developed by Drs. Diaz Wylie, Bruna Calloway, Ross Sorto and colleagues, with an educational joanne from [employer] ([email or web address]). Review of Systems Const All systems reviewed & are unremarkable except as noted in HPI and below Card Denies chest pain at rest, Denies chest pain with activity, Denies edema, Denies irregular heart rhythm, Denies claudication, Denies dyspnea, Denies dyspnea on exertion, Denies orthopnea, Denies paroxysmal nocturnal dyspnea and Denies slow heart rate Resp Denies cough, Denies dyspnea and Denies dyspnea on exertion GI Denies abdominal pain, Denies change in bowel habits, Denies excessive flatus, Denies nausea and Denies vomiting Denies urinary incontinence, Denies urinary hesitancy and Denies urinary urgency Musc Denies abnormal gait, Denies atrophy, Denies deformity and Denies limited range of motion Neuro Denies abnormal gait, Denies lack of coordination and Reports tremor(s) Physical Exam Vital Signs: Last Vital Signs BP 120/64 02/16/24 08:57 BMI result Body Mass Index 20.7 Const Orientation/consciousness: patient oriented x3 HEENT Ears: hearing grossly normal bilaterally Resp Effort & Inspection: normal respiratory effort Auscultation: clear to auscultation bilaterally Cardio Jugular venous distension: no JVD Rate: regular rate Rhythm: regular rhythm Heart sounds: S1 normal heart sound present and S2 normal heart sound present Neuro General: patient oriented x3 and no focal motor deficits Speech: Other speech findings present (Neuro) (voice tremor) Gait exam (Neuro): Normal gait present Romberg Test: Negative Extrem General: Yes full ROM Assessment & Plan Assessment & Plan (1) Encounter for Medicare annual wellness exam: Code(s): Z00.00 - Encounter for general adult medical examination without abnormal findings Plan: Repeat in a year. (2) Familial tremor: Comment: Head tremor causing hoarseness Code(s): G25.0 - Essential tremor Plan: Start propranolol. Follow-up with Neurology. Orders: Orders Thyroid Stimulating Hormone 6 Months E03.9 - Hypothyroidism, unspecified Referrals Speech and Hearing Referral R49.8 - Other voice and resonance disorders Medications: New propranolol 10 mg PO BID 60 tabs 0RF 30 days R49.8 - Other voice and resonance disorders Quality Reporting (2019) Fall Risk Screening ([facility] 139) Fall risk assessment: No Falls in past year Depression/Bipolar (159/160/161/177) PHQ-9: Total score: 0 Coding Level of Care Code Medicare Subsequent (G0439) Est Pt Level 3 (18695) Diagnoses Encounter for Medicare annual wellness exam Z00.00 Familial tremor G25.0 CPT Codes Advance Care Planning - Advance Care Planning discussion: On file, no changes ([id number]) Advance Care Planning - Time spent: 1-15 minutes, on File ([id number]) Time Spent (min) 35 Advance Care Planning Advance Care Planning discussion: On file, no changes Date of discussion: 02/16/24 Who was present: Patient and me Forms completed: STEVE Time spent: 1-15 minutes, on File Actual minutes spent: 1
== END 2024-02-16 09:44 | disposition home or self-care (01) ==
PROVIDERS: PCP Internal Medicine; Visit Provider Internal Medicine
DX: Z00.00 Encounter for general adult medical examination without abnormal findings (principal); G25.0 Essential tremor

== ENCOUNTER → 2024-02-16 08:49 | Outpatient (BNVA) | payer MEDICARE, SELFPAY | PROVIDERS: PCP Internal Medicine; Visit Provider Internal Medicine | DX: Z00.00 Encounter for general adult medical examination without abnormal findings (principal); G25.0 Essential tremor | CPT/HCPCS: 99212 ==

== ENCOUNTER 2024-03-17 09:17 | Outpatient (REF) | payer MEDICARE, SELFPAY ==
--- NOTE | ~2024-03-17 | MM_ITS ---
EXAMINATION: MM SCREENING DIGITAL BREAST TOMOSYNTHESIS, BILATERAL CLINICAL INFORMATION: Screening. Asymptomatic. COMPARISON: Mammography: Comparison is made with available priors TECHNIQUE: Digital breast mammography with tomosynthesis is performed in both the craniocaudal and mediolateral oblique views along with computer-aided detection (CAD). FINDINGS: The breasts are heterogeneously dense, which may obscure small masses (ACR BI-RADS breast composition Category c). There are no significant masses, abnormal calcifications, or other abnormalities. MM/MM tomosynthesis screening BI IMPRESSION: No mammographic evidence of malignancy. ASSESSMENT: BI-RADS BI-RADS 1 - Negative RECOMMENDATION: Routine annual mammography screening. 1 year F/U This examination should not preclude the clinical evaluation of a suspicious palpable abnormality. This patient's information was entered into a reminder system with a target due date for their next mammogram. Electronically signed by: Edyta Vinson DO 03/28/2024 02:46 PM EDT
== END 2024-03-17 09:18 | disposition home or self-care (01) ==
LOC: HO.MAMMO 09:17
PROVIDERS: PCP Internal Medicine; Visit Provider Internal Medicine
DX: Z12.31 Encounter for screening mammogram for malignant neoplasm of breast (principal)
CPT/HCPCS: 77063; 77067

== ENCOUNTER → 2024-03-17 09:30 | Outpatient (BNV) | payer MEDICARE, SELFPAY | PROVIDERS: PCP Internal Medicine; Visit Provider Internal Medicine | DX: Z12.31 Encounter for screening mammogram for malignant neoplasm of breast (principal) | CPT/HCPCS: 77063; 77067 ==

== ENCOUNTER 2024-05-03 14:11 | Outpatient (AMB) | payer MEDICARE, SELFPAY ==
[2024-05-03 14:19] VITALS: BMI 21.1
--- NOTE | 2024-05-03 14:19 | A.OFFVIS_ITS ---
Vital Signs 05/03/24 14:19 Height 5 ft 2.5 in Weight 117 lb 2 oz BMI 21.1 Intake Visit Reasons: INP-Paresthesia of Skin Intake Note: Patient presents for parasthesia Allergies penicillin G Allergy (Intermediate, Verified 05/03/24 14:27) rash aspirin Adverse Reaction (Intermediate, Verified 05/03/24 14:27) Contraindicated due to Cerebral vascular maformat Codeine Sulfate Allergy (Intermediate, Uncoded 05/03/24 14:27) rash Ibuprofen Allergy (Intermediate, Uncoded 05/03/24 14:27) hives Medication List - Last Reconciled 05/03/24 by Bridget Branch MD atorvastatin 10 mg PO BEDTIME 90 days calcium carbonate-vitamin D3 500 mg-10 mcg (400 unit) 1 tab PO DAILY cholecalciferol (vitamin D3) 25 mcg PO DAILY clobetasol 0.05% 1 appl topical BID famotidine 20 mg PO DAILY glucosamine-chondroitin 500-400 mg 1 tab PO DAILY levothyroxine 75 mcg PO DAILY polyethylene glycol 3350 17 grams PO DAILY propranolol 10 mg PO BID 30 days simethicone (Gas Relief (simethicone)) 160 mg (2 x 80 mg) PO BID-TID 30 days HPI Comments Details: 84y/o female comes for evaluation of tremors- voice and head.she has family h/o familial tremors - AUnt and 2 cousins with voice tremors. SHe started noticing voice tremors about 7 years ago - when she was singing she felt her voice was worse. About 3 years ago she was seen by Dr. Lopez - who diagnosed her as tremors after a laryngoscope. She also feels her voice is hoarse and has a post nasal drip. 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 she was trialled on propranolol 10mg bid- but has orthostatic hypotension and her dizziness worsened. she also has tethered cord syndrome with left sciatica and also has occasional involuntary left leg jerking at night. she reports acting out dreams and she fell off her bed 4-5 times since 2011.Her sleep is good other liao. she walks 1.5 miles and 4 flights of stairs a day. she denies any numbness or tingling or pain in her hands and rare neck pain. 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 Urge urinary incontinence Pure hypercholesterolemia Tethered cord Chronic constipation Jaw pain Right hand pain Familial tremor GERD (gastroesophageal reflux disease) Voice hoarseness Hypothyroidism Surgical History History of colonoscopy S/P [facility]-BSO H/O inguinal hernia repair Hx of tonsillectomy Family History Mother IBS (irritable bowel syndrome) Skin cancer Dementia Father Heart disease Social History Household Members Other:: Rehab Housing: Apartment Alcohol intake: current Alcohol intake frequency: a few times a month Alcohol type: wine Patient Tobacco Use Status: Never used Tobacco e-Cigarette/Vaping Use: Never Used Second Hand Smoke Exposure: No service: No Current occupational status: retired Cognitive needs: No Hearing needs: No Vision needs: Yes Physical Exam Vital Signs: BMI result Body Mass Index 21.1 Const General: cooperative, healthy appearing, comfortable and no acute distress Nutritional Appearance: average body habitus Orientation/consciousness: patient oriented x3 Eyes Pupils: Equal, round and reactive pupils present Neuro Other: Right laterocollis Tightness and pain in tyrone splenius , levator Voice tremors, dysphonia Tyrone mild hand tremors cation with right writers cramp Gait - stooped with decreased arm swing on the right Mild cog wheel rigidity on the right Good facial expression and blink General: patient oriented x3, moves all extremities and no focal motor deficits Cranial nerves: Yes Facial sensation intact/muscles of mastication intact, Yes Equal, round and reactive pupils present, Yes Bilaterally intact EOM present, Yes Nystagmus not present, Yes Normal facial strength present, Yes Midline tongue present and Yes Ability to bilaterally elevate shoulders present Cognition (Neuro): normal cognition Motor exam (neuro): 5/5 motor strength present throughout Deep tendon reflexes (DTR's): Right triceps reflex intensity grade: 2+, Left triceps reflex intensity grade: 2+, Rt Biceps (C5, C6): 2+, Left biceps reflex intensity grade: 2+, Right brachioradialis reflex intensity grade: 2+, Left brachioradialis reflex intensity grade: 2+, Right patellar reflex intensity grade: 3+ and Left patellar reflex intensity grade: 3+ Coordination: fkdjhb-gi-vzsk test normal Assessment & Plan Assessment & Plan (1) Voice tremor: Code(s): R49.8 - Other voice and resonance disorders Category: Medical (2) Cervical dystonia: Code(s): G24.3 - Spasmodic torticollis Category: Medical (3) Writers' cramp: Code(s): F48.8 - Other specified nonpsychotic mental disorders Category: Medical (4) REM behavioral disorder: Code(s): G47.52 - REM sleep behavior disorder Category: Medical Plan Melatonin 2-5 mg qhs primidone 25mg bid will monitor for signs of Parkinsons will consider sleep study during her next visit I reviewed her MRIs Cspine brain and L spine Medications: New primidone 25 mg (1/2 x 50 mg) PO BID 30 tabs 3RF melatonin 3 mg PO BEDTIME PRN 30 caps 6RF sleep Coding Level of Care Code New Pt Level 4 (79010) Complex EM visit Add On G2211 Diagnoses Voice tremor R49.8 Cervical dystonia G24.3 Writers' cramp F48.8 REM behavioral disorder G47.52
== END 2024-05-03 15:13 | disposition home or self-care (01) ==
PROVIDERS: PCP Internal Medicine; Visit Provider Psychiatry & Neurology Neurology
DX: R49.8 Other voice and resonance disorders (principal); G24.3 Spasmodic torticollis; F48.8 Other specified nonpsychotic mental disorders; G47.52 REM sleep behavior disorder
CPT/HCPCS: 99204; G2211

== ENCOUNTER → 2024-05-03 14:11 | Outpatient (BNVA) | payer MEDICARE, SELFPAY | PROVIDERS: PCP Internal Medicine; Visit Provider Psychiatry & Neurology Neurology | DX: R49.8 Other voice and resonance disorders (principal); G24.3 Spasmodic torticollis; G47.52 REM sleep behavior disorder; F48.8 Other specified nonpsychotic mental disorders | CPT/HCPCS: 99202 ==

== ENCOUNTER 2024-08-03 10:30 | Outpatient (AMB) | payer MEDICARE, SELFPAY ==
[2024-08-03 10:31] VITALS: BP 124/70; BMI 21.1
--- NOTE | 2024-08-03 10:31 | MHC.OFFVIS ---
Vital Signs 08/03/24 10:31 Height 5 ft 2.5 in Weight 117 lb BMI 21.1 BP 124/70 Blood Pressure Location Rt brachial Position Sitting Intake Visit Reasons: follow up Paresthesia of Skin(per MD) Intake Note: Patient presents for follow up parasthesia of the skin. Primidone trial given at last visit. Allergies penicillin G Allergy (Intermediate, Verified 08/03/24 10:34) rash aspirin Adverse Reaction (Intermediate, Verified 08/03/24 10:34) Contraindicated due to Cerebral vascular maformat Codeine Sulfate Allergy (Intermediate, Uncoded 08/03/24 10:34) rash Ibuprofen Allergy (Intermediate, Uncoded 08/03/24 10:34) hives Medication List - Last Reconciled 08/03/24 by Bridget Branch MD atorvastatin 10 mg PO BEDTIME 90 days calcium carbonate-vitamin D3 500 mg-10 mcg (400 unit) 1 tab PO DAILY cholecalciferol (vitamin D3) 25 mcg PO DAILY clobetasol 0.05% 1 appl topical BID famotidine 20 mg PO DAILY gabapentin 100 mg PO BEDTIME glucosamine-chondroitin 500-400 mg 1 tab PO DAILY levothyroxine 75 mcg PO DAILY melatonin 3 mg PO BEDTIME PRN polyethylene glycol 3350 17 grams PO DAILY simethicone (Gas Relief (simethicone)) 160 mg (2 x 80 mg) PO BID-TID 30 days HPI Comments Details: 84y/o female comes for f/u of tremors- voice and head.REM behavior disorder is betetr- almost resolved with melatonin. she did not tolerate primidone.No change since last visit. she is doing well now. she is doing therapeutic massage once in 2 mths and PT also helps her neck tightness. she has family h/o familial tremors - AUnt and 2 cousins with voice tremors. SHe started noticing voice tremors about 7 years ago - when she was singing she felt her voice was worse. About 3 years ago she was seen by Dr. Lopez - who diagnosed her as tremors after a laryngoscope. She also feels her voice is hoarse and has a post nasal drip. 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 she was trialled on propranolol 10mg bid- but has orthostatic hypotension and her dizziness worsened. she also has tethered cord syndrome with left sciatica and also has occasional involuntary left leg jerking at night. she reports acting out dreams and she fell off her bed 4-5 times since 2011.Her sleep is good other liao. she walks 1.5 miles and 4 flights of stairs a day. she denies neck pain - no tingling but when she lies down in certain positions she has tyrone thumb pain - MRI c spine hsowed neural foraminals tenosis at C4-5 and C5-6 . she was seen at [facility]. 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 Urge urinary incontinence Pure hypercholesterolemia Tethered cord Chronic constipation Jaw pain Right hand pain Familial tremor GERD (gastroesophageal reflux disease) Voice hoarseness Hypothyroidism Surgical History History of colonoscopy S/P [facility] H/O inguinal hernia repair Hx of tonsillectomy Family History Mother IBS (irritable bowel syndrome) Skin cancer Dementia Father Heart disease Social History Household Members Other:: Rehab Housing: Apartment Alcohol intake: current Alcohol intake frequency: a few times a month Alcohol type: wine Patient Tobacco Use Status: Never used Tobacco e-Cigarette/Vaping Use: Never Used Second Hand Smoke Exposure: No service: No Current occupational status: retired Cognitive needs: No Hearing needs: No Vision needs: Yes Physical Exam Vital Signs: Last Vital Signs BP 124/70 08/03/24 10:31 BMI result Body Mass Index 21.1 Const General: cooperative, healthy appearing, comfortable and no acute distress Nutritional Appearance: average body habitus Orientation/consciousness: patient oriented x3 Eyes Pupils: Equal, round and reactive pupils present Neuro Other: Right laterocollis Tightness and pain in tyrone splenius , levator Voice tremors, dysphonia Tyrone mild hand tremors cation with right writers cramp Gait - stooped with decreased arm swing on the right Mild cog wheel rigidity on the right Good facial expression and blink General: patient oriented x3, moves all extremities and no focal motor deficits Cranial nerves: Yes Facial sensation intact/muscles of mastication intact, Yes Equal, round and reactive pupils present, Yes Bilaterally intact EOM present, Yes Nystagmus not present, Yes Normal facial strength present, Yes Midline tongue present and Yes Ability to bilaterally elevate shoulders present Cognition (Neuro): normal cognition Motor exam (neuro): 5/5 motor strength present throughout Coordination: [id number]-to-gnnu test normal Assessment & Plan Assessment & Plan (1) Voice tremor: Code(s): R49.8 - Other voice and resonance disorders Category: Medical (2) Cervical dystonia: Code(s): G24.3 - Spasmodic torticollis Category: Medical (3) Writers' cramp: Code(s): F48.8 - Other specified nonpsychotic mental disorders Category: Medical (4) REM behavioral disorder: Code(s): G47.52 - REM sleep behavior disorder Category: Medical Plan Melatonin 2-5 mg qhs Gbaapentin 100mg qhs will monitor for signs of Parkinsons Medications: Discontinued propranolol Discontinued Reason: Patient no longer taking 10 mg PO BID 30 days 60 tabs 0RF R49.8 - Other voice and resonance disorders Coding Level of Care Code Est Pt Level 4 (93752) Diagnoses Voice tremor R49.8 Cervical dystonia G24.3 Writers' cramp F48.8 REM behavioral disorder G47.52
--- OUTSIDE RECORDS SUMMARY | 2024-08-03 12:36 | XMS_ITS ---
Author Organization [facility] Address [address] [place] [address] Care Team Providers Care Residential Real Estate Agent Name Role Phone Craig HAZEL, Lizbeth Primary Care Provider Unavail able Álvaro Montgomery Unavailable [phone] Allergies Allergen (clinical drug ingredient) Drug/Non Drug Allergy documented on EMR Reaction Allergy Type Onset Date Status ibuprofen Advil Unknown Drug Allergy Active Aleve Unknown Drug Allergy Active aspirin Aspirin Unknown Drug Allergy Active ibuprofen Ibuprofen Unknown Drug Allergy Active Motrin Unknown Drug Allergy Active codeine Codeine Unknown Drug Allergy Active Penicillin Unknown Drug Allergy Active REASON FOR VISIT At Risk Footcare, Painful Nail(s) aggrevated by shoes and causing difficulty standing/walking. Medications Medication SIG (Take, Route, Frequency, Duration) Notes Start Date End Date Status Fluticasone Propionate Not-Taking Metamucil Not-Taking Vitamin C Not-Taking Fluzone High-Dose 0.5 ML TO BE ADMINISTERED BY PHARMACIST FOR IMMUNIZATION Intramuscular for 1 Flu Shot Not-Taking Fluticasone Furoate Not-Taking ASO Ankle/Foot Stablizing AFO As directed Wear Daily for as needed 01/25/2020 Active Loratadine 10 MG 1 tablet Orally Once a day PRN 05/21/2016 Not-Taking Famotidine 10 MG 1 tablet as needed Orally Twice a day PRN Not-Taking Gabapentin Not-Takin g Tylenol Not-Taking Vitamin D 1000 UNIT 1 tablet Orally Once a day 05/21/2016 Active Citrucel Active Glucosamine Chondr Complex Active Laxative Active Levothyroxine Sodium 75 MCG TAKE 1/2 TABLET ON WEDNESDAY,WEDNESDAY AND WEDNESDAY AND 1 TABLET OTHER DAYS Oral for 30 Active Cetirizine HCl PRN Activ e Omeprazole Active Atorvastatin Calcium Active Calcium + D Active Social History Tobacco Use: Social History Observation Description Date Details (start date - stop date) Never Smoker NA - NA Tobacco Use/Smoking Question Answer Notes Are you a: nonsmoker Additional Findings: Tobacco Non-User Current no n-smoker Alcohol Screen Question Answer Notes Did you have a drink contain ing alcohol in the past year? Yes How often did you have a dri nk containing alcohol in the past year? Monthly or less (1 point) Points 1 Interpretation Negative Tobacco use other than smoking: Question Answer Notes Are you an other tobacco user? No Vital Signs Height 5 ft 3 in in 08/19/2023 Weight 113 lbs 08/19/2023 BMI 20.01 kg/m2 08/19/2023 Procedures Procedure Date Ordered Date Performed Result Body Sit e 99878-EJPWXIM NAIL, 6 OR MORE 08/19/2023 N/A 38667-DBKK SKIN LESIONS, 2 TO 4 08/19/2023 N/A Encounters Encounter Location Date Provider Diagnosis [facility] [address] [place] [id number] 08/19/2023 Álvaro Montgomery Atherosclerosis of [place] artery of both lower extremities, with unspecified presence of clinical manifestation I70.203 ; Tinea unguium B35.1 ; Pain in right toe(s) M79.674 and Pain in left toe(s) M79.675 Assessments Encounter Date Diagnosis (ICD Code) Assessment Notes Treatment Notes Treatment Clinical Notes Section Notes 08/19/2023 Atherosclerosis of [place] artery of both lower extremities, with unspecified presence of clinical manifestation (ICD-10 - I70.203) 08/19/2023 Tinea unguium (ICD-10 - B35.1) 08/19/2023 Pain in right toe(s) (ICD-10 - M79.674) 08/19/2023 Pain in left toe(s) (ICD-10 - M79.675) Plan Of Treatment Pending Test Test Name Order Date [id number] NAIL, 6 OR MORE 08/19/2023 [id number] SKIN LESIONS, 2 TO 4 08/19/19 24 Next Appt Details Follow Up: prn, Reason: Provider Name:Álvaro Parkerier , 08/31/2024 08:45:00 AM, [address] , [address], [place], [address], Procedure Notes * Category Sub-Category Detail Notes Debride Nail 6-10 Nail debridement Nail debridem ent performed extensively to reduce/remove overall nail length, girth, thickness, subungual debris, and necrotic tissue, by manual and electrical means through the use of a nail nipper and/or dremel, to more viable healthy nail plate or bed tissue 1-5. Silver nitrate used for any petechial bleeding as necessary. Patient chooses, no pharmaceutical tx (71970) Keratoma Treatment Parring or Cutting o f Benign Hyperkeratotic Lesion(s) 92834 (2-4 Lesions) - The Benign hyperkeratotic lesions, as described above were pared, and/or cut utilizing a sterile #15 blade, tissue nippers, and/or dremel, Q8 Progress Notes * Marly ORTIZ DDOB:[birth year] (83 yo F)Acc No.[id number]:08/19/2023 Progress Note Patient:?Marly Ortiz Provider:?Álvaro Montgomery DPM :1940???Age:83 Y???Sex:Female D ate:08/19/2023 Address:[address] [place], [place] [id number] Pcp:Lizbeth Srinivasan MD Subjective: * Chief Complaints: * ???At Risk FootcarePainful N ail(s) aggrevated by shoes and causing difficulty standing/walking. * HPI: ???At Risk footcare:?Pt States Last PCP Visit:?Date?08/12/2023 * ROS:?General/Constitutional:?Nausea?denies.?Vomiting?denies.?Hunger Thirst?denies.?Loss appetite?denies.?Chills?denies.?Fatigue?denies.?Fever?denies.?Night Sweats?denies.?Unexplained weight loss?denies.?Unexplained weight gain?denies.?HEENTM:?Dentures?denies.?Dizziness?admits.?Glasses/contacts?admits.?Retinopathy?de nies.?Blurred/double vision?denies.?TMJ?denies.?Discharge/drainage?denies.?Implants?denies.?Sore throat?denies.?Dental implants?denies.?Hard of hearing ?denies.?Difficulty chewing/swallowing/speaking?denies.?Nose bleeds?denies.?Sore mouth?denies.?Respiratory:?On Oxygen?denies.?Pneumonia/pleurisy?denies.?Bronchitis?denies.?Emphysema?denies.?C oughing?denies.?Cough blood?denies.?Shortness of breath?denies.?Wheezing?denies.?Cardiovascular:?Pacemaker?denies.?MVP?denies.?WPW?denies.?CHF?denies.?Heart attack?denies.?Septal defect?denies.?Rapid beat?denies.?Chest pain ?denies.?Atrial Fib.?denies.?Murmur/Palpitations?denies.?Gastrointestinal:?Hemorrhoids?admits.?Stomach/Abdominal pain?denies.?Dark blood stool?denies.?Irritable bowel ?admits.?Constipation?denies.?Diarrhea?denies.?Hematology:?Swelling?denies.?Clots?Admits.?Varicose Veins?denies.?Bruising?denies.?Bleeding problem?denies.?Genitourinary:?Blood urine?denies.?Frequent/Painfu/urination/bladder control?denies.?Kidney stones?denies.?Infection (UTI)?denies.?Nephropathy?denies.?sex trans dis (STD)?denies.?Prostate?denies.?Musculoskeletal:?Hammertoes?admits.?Bunions?admits.?Back Pain?admits.?Muscle Cramps/ Resting?denies.?Muscle cramps / walking?denies.?Generalized aches and pains?denies.?Weakness?denies.?Integ.:?Villavicencio?denies.?Scars?denies.?Corns/calluses?admits.?Ingrown nails?admits.?Painful nails?admits.?Open Sores?denies.?Rashes?denies.?Neurologic:?Difficulty sleeping?denies.?Brain disorder?denies.?Numbness?denies.?Balance trouble?denies.?Confusion?denies.?Fainting/blackouts?denies.?Tingling?denies.?Tr emors?denies.? * Medical History:? * Surgical History:?tonsillect aidan 194herniated disk repair 1948hysterectomy 1987fatty tumor removal 1992[facility] surgery, leg 10/29/22 * Hospitalization/Major Diagno stic Procedure:?[facility] [place] Lower leg & ankle right, Ultra sound lower right extremity 01/22/20[facility], accute sciatica 12/2020 * Family History:?Mother: dece ased, foot problems, diagnosed with Other malignant neoplasm of unspecified site.?Father: , diagnosed with Unspecified heart disease.?Paternal uncle: heart attack, diagnosed with Unspecified heart disease.?Maternal aunt: diagnosed with Other malignant neoplasm of unspecified site.?Cousin: diagnosed with Other malignant neoplasm of unspecified site.? * Social History:?Tobacco Use:?Tobacco Use/Smoking?Are you a:?nonsmoker ?Additional Findings: Tobacco Non-User?Current non-smoker ?Tobacco use other than smoking?Are you an other tobacco user??No ???Drugs/Alcohol:?Drugs?Have you used drugs other than those for medical reasons in the past 12 months??No ?Alcohol Screen?Did you have a drink containing alcohol in the past year??Yes ?How often did you have a drink containing alcohol in the past year??Monthly or less (1 point) ?Points?1 ?Interpretation?Negative ???Miscellaneous:?Caffeine: yes, frequency: 1 cup/month. ?no Children, none. ?Exercise: yes, moderate exercise (Average 1.6 miles/day and 4 flights/day). ?Marital status: single. 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 * Medications:?TakingCetirizin e HCl , Notes: PRNOmeprazole Atorvastatin Calcium Calcium + D Citrucel Glucosamine Chondr Complex Laxative Levothyroxine Sodium 75 MCG Tablet TAKE 1/2 TABLET ON WEDNESDAY,WEDNESDAY AND WEDNESDAY AND 1 TABLET OTHER DAYS Oral Vitamin D 1000 UNIT Tablet 1 tablet Orally Once a dayASO Ankle/Foot Stablizing AFO As directed Wear DailyTaking Cetirizine HCl , Notes: PRNTaking Omeprazole Taking Atorvastatin Calcium Taking Calcium + D Taking Citrucel Taking Glucosamine Chondr Complex Taking Laxative Taking Levothyroxine Sodium 75 MCG Tablet TAKE 1/2 TABLET ON WEDNESDAY,WEDNESDAY AND WEDNESDAY AND 1 TABLET OTHER DAYS Oral Taking Vitamin D 1000 UNIT Tablet 1 tablet Orally Once a dayTaking ASO Ankle/Foot Stablizing AFO As directed Wear DailyNot-Taking/PRNLoratadine 10 MG Tablet 1 tablet Orally Once a day, Notes: PRNFamotidine 10 MG Tablet 1 tablet as needed Orally Twice a day, Notes: PRNGabapentin Tylenol Fluticasone Furoate Fluticasone Propionate Metamucil Vitamin C Fluzone High-Dose 0.5 ML Suspension Prefilled Syringe TO BE ADMINISTERED BY PHARMACIST FOR IMMUNIZATION Intramuscular , Notes: Flu ShotMedication List reviewed and reconciled with the patientNot-Taking/PRN Loratadine 10 MG Tablet 1 tablet Orally Once a day, Notes: PRNNot-Taking/PRN Famotidine 10 MG Tablet 1 tablet as needed Orally Twice a day, Notes: PRNNot-Taking/PRN Gabapentin Not-Taking/PRN Tylenol Not-Taking/PRN Fluticasone Furoate Not-Taking/PRN Fluticasone Propionate Not-Taking/PRN Metamucil Not-Taking/PRN Vitamin C Not-Taking/PRN Fluzone High- Dose 0.5 ML Suspension Prefilled Syringe TO BE ADMINISTERED BY PHARMACIST FOR IMMUNIZATION Intramuscular , Notes: Flu ShotMedication List reviewed and reconciled with the patient * Allergies:?AspirinAdvilAleve CodeineMotrinIbuprofenPenicillinyes[Allergies Verified] Objective: * Vitals:?Ht: 5 ft 3 in, Wt:11 3, BMI: 20.01, Shoe size:8.5M, Wt-k.26 kg. * Examination: ???Vascular: ?DP PULSES:? 0/4, B/L.?PT PULSES:? 1/4, B/L.?CAPILLARY FILL TIME:? delayed, all digits, B/L.?SKIN TEMPERTURE GRADIENT OF THE LOWER EXTERMITIES:? decreased, cool to cool, proximal to distal, B/L.?HAIR GROWTH/TEXTURE/ELASTICITY/TURGOR:? decreased, B/L.?PIGMENTATION:? mottled, B/L.?EDEMA:?absent, B/L.?CLAUDICATION:?denies, B/L.?REST PAIN:?denies, B/L.?Nails: ?NAILS are:?Elongated, overgrown, dystrophic, lytic, greater than 3mm thick, discolored and friable with crumbly malodorous subungual debris, with pain on palpation, T1, T2, T3, T4, T6, T7, T8, T9.?Dermatologic: ?SKIN FINDINGS:? Skin exam reveals Keratotic lesion(s) located at, Medial, DIPJ, T7, Heel(s), B/L .? Assessment: * Assessment: 1.?Tinea unguium - B35.1?2.? Atherosclerosis of [place] artery of both lower extremities, with unspecified presence of clinical manifestation - I70.203 (Primary)?3.?Pain in right toe(s) - M79.674?4.?Pain in left toe(s) - M79.675? Plan: * Treatment: 2.?Tinea unguium?Procedure: 94388-[id number] NAIL, 6 OR MORE * Procedures:?Debride Nail 6-10:?Nail debridement?Nail debridement performed extensively to reduce/remove overall nail length, girth, thickness, subungual debris, and necrotic tissue, by manual and electrical means through the use of a nail nipper and/or dremel, to more viable healthy nail plate or bed tissue 1-5. Silver nitrate used for any petechial bleeding as necessary. Patient chooses, no pharmaceutical tx (04296).?Keratoma Treatment:?Parring or Cutting of Benign Hyperkeratotic Lesion(s)?47948 (2-4 Lesions) - The Benign hyperkeratotic lesions, as described above were pared, and/or cut utilizing a sterile #15 blade, tissue nippers, and/or dremel, Q8.? * Procedure Codes:?48050 DEBRI DE NAIL, 6 OR MORE, Modifiers: XS 89476 TRIM SKIN LESIONS, 2 TO 4, Modifiers: XS , Q8 * Follow Up:?prn * Images: * Sign off status: Completed Addendum: * ? true * Provider:?Álvaro Montgomery DPM Date:?2023 Generated for Jennifer christian/Asmita/Amira on:?08/03/2024 12:36 PM EST History and Physical Notes * HPI (History of Present Illness) Category Sub-Category Detail Notes Category Not es At Risk footcare Pt States Last PCP Visit: Date: 03/14/202 4 Examination Category Sub-Category Detail Notes Category Not es Dermatologic SKIN FINDINGS: Skin exam reveal s Keratotic lesion(s) located at, Medial, DIPJ, T7, Heel(s), B/L Vascular DP PULSES (B): 0/4, B/L PT PULSES (B): 1/4, B/L CAPILLARY FILL TIME: delayed, all digits , B/L TEMPERTURE GRADIENT (C): decreased, cool to cool, proximal to distal, B/L TROPHIC CONDITION-TEXTURE/ELASTICITY/TURGOR/HAIR GROWTH (B): decreased, B/L EDEMA (C): absent, B/L CLAUDICATION (C): denies, B/L REST PAIN: denies, B/L PIGMENTATION: mottled, B/L Nails NAILS are: Elongated, overg rown, dystrophic, lytic, greater than 3mm thick, discolored and friable with crumbly malodorous subungual debris, with pain on palpation, T1, T2, T3, T4, T6, T7, T8, T9
--- OUTSIDE RECORDS SUMMARY | 2024-08-03 12:36 | XMS_ITS ---
Author Organization [facility] Address [address] [place] [address] Care Team Providers Care Stevedore Hold Name Role Phone Craig HAZEL, Lizbeth Primary Care Provider Unavail able Álvaro Montgomery Unavailable [phone] Allergies Allergen (clinical drug ingredient) Drug/Non Drug [...] Date End Date Status Fluticasone Propionate Not-Taking Fluticasone Furoate Not-Taking Fluzone High-Dose 0.5 ML TO BE ADMINISTERED BY PHARMACIST FOR IMMUNIZATION Intramuscular for 1 Flu Shot Not-Taking Vitamin C Not-Taking Metamucil Not-Taking Tylenol Not-Taking Gabapentin Not-Takin g Famotidine 10 MG 1 tablet as needed Orally Twice a day PRN Not-Taking Loratadine 10 MG 1 tablet Orally Once a day PRN 05/21/2016 Not-Taking Citrucel Not-Taking Levothyroxine Sodium 75 MCG TAKE 1/2 TABLET ON WEDNESDAY,WEDNESDAY AND WEDNESDAY AND 1 TABLET OTHER DAYS Oral for 30 Active Omeprazole Not-Takin g Cetirizine HCl PRN Not-T aking ASO Ankle/Foot Stablizing AFO As directed Wear Daily for as needed 01/25/2020 Active Vitamin D 1000 UNIT 1 tablet Orally Once a day 05/21/2016 Active Laxative Active Glucosamine Chondr Complex Active Calcium + D Active Atorvastatin Calcium Active Famotidine Active Social History Tobacco Use: Social History [...] Signs Height 5 ft 3 in in 12/23/2023 Weight 113 lbs 12/23/2023 BMI 20.01 kg/m2 12/23/2023 Procedures Procedure Date Ordered Date Performed Result Body Sit e 92827-XESPHDQ NAIL, 6 OR MORE 12/23/2023 N/A 75970-YHJI SKIN LESIONS, 2 TO 4 12/23/2023 N/A Encounters Encounter Location Date Provider Diagnosis [facility] [address] [address] 12/23/2023 Álvaro Montgomery Atherosclerosis of [place] artery of both lower extremities, with unspecified presence of clinical manifestation I70.203 ; Tinea unguium B35.1 ; Pain in right toe(s) M79.674 and Pain in left toe(s) M79.675 Assessments Encounter Date Diagnosis (ICD Code) Assessment Notes Treatment Notes Treatment Clinical Notes Section Notes 12/23/2023 Atherosclerosis of [place] artery of both lower extremities, with unspecified presence of clinical manifestation (ICD-10 - I70.203) 12/23/2023 Tinea unguium (ICD-10 - B35.1) 12/23/2023 Pain in right toe(s) (ICD-10 - M79.674) 12/23/2023 Pain in left toe(s) (ICD-10 - M79.675) Plan Of Treatment Pending Test Test Name Order Date 58777-UBOTZBD NAIL, 6 OR MORE 12/23/2023 05318-KXHN SKIN LESIONS, 2 TO 4 12/23/19 24 Next Appt Details Follow Up: prn, Reason: Provider Name:Álvaro Patricia Montgomery , 08/31/2024 08:45:00 AM, [address] , [address], [place], [address], Procedure Notes * Category Sub-Category Detail Notes [...] as necessary. Patient chooses, no pharmaceutical tx (69746) Keratoma Treatment Parring or Cutting o f Benign Hyperkeratotic Lesion(s) 63200 (2-4 Lesions) - The Benign hyperkeratotic lesions, as described above were pared, and/or cut utilizing a sterile #15 blade, tissue nippers, and/or dremel, Q8 Progress Notes * Marly ORTIZ DDOB:[birth year] (83 yo F)Acc No.[id number]:12/23/2023 Progress Note Patient:?Marly Ortiz Provider:?Álvaro Montgomery DPM :1940???Age:83 Y???Sex:Female D ate:12/23/2023 Address:[address] [place], [place] [address] Pcp:Lizbeth Srinivasan MD Subjective: * Chief Complaints: [...] * Medical History:? * Surgical History:?tonsillect aidan 1945herniated disk repair 1948hysterectomy 1987fatty tumor removal 1993[facility] surgery, leg 10/29/22 * Hospitalization/Major Diagno stic Procedure:[place] [place] Lower leg & ankle right, Ultra sound lower right extremity 01/22/20[facility], accute sciatica 12/2020 * Family [...] and 4 flights/day). ?Marital status: single. 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 * Medications:?TakingFamotidin e Atorvastatin Calcium Calcium + D Glucosamine Chondr Complex Laxative Levothyroxine Sodium 75 MCG Tablet TAKE 1/2 TABLET ON WEDNESDAY,WEDNESDAY AND WEDNESDAY AND 1 TABLET OTHER DAYS Oral Vitamin D 1000 UNIT Tablet 1 tablet Orally Once a dayASO Ankle/Foot Stablizing AFO As directed Wear DailyTaking Famotidine Taking Atorvastatin Calcium Taking Calcium + D Taking Glucosamine Chondr Complex Taking Laxative Taking Levothyroxine Sodium 75 MCG Tablet TAKE 1/2 TABLET ON WEDNESDAY,WEDNESDAY AND WEDNESDAY AND 1 TABLET OTHER DAYS Oral Taking Vitamin D 1000 UNIT Tablet 1 tablet Orally Once a dayTaking ASO Ankle/Foot Stablizing AFO As directed Wear DailyNot-Taking/PRNCetirizine HCl , Notes: PRNOmeprazole Citrucel Loratadine 10 MG Tablet 1 tablet Orally Once a day, Notes: PRNFamotidine 10 MG Tablet 1 tablet as needed Orally Twice a day, Notes: PRNGabapentin Tylenol Fluticasone Furoate Fluticasone Propionate Metamucil Vitamin C Fluzone High-Dose 0.5 ML Suspension Prefilled Syringe TO BE ADMINISTERED BY PHARMACIST FOR IMMUNIZATION Intramuscular , Notes: Flu ShotMedication List reviewed and reconciled with the patientNot- Taking/PRN Cetirizine HCl , Notes: PRNNot-Taking/PRN Omeprazole Not-Taking/PRN Citrucel Not-Taking/PRN Loratadine 10 MG Tablet 1 tablet Orally Once a day, Notes: PRNNot-Taking/PRN Famotidine 10 MG Tablet 1 tablet as needed Orally Twice a day, Notes: PRNNot-Taking/PRN Gabapentin Not-Taking/PRN Tylenol Not-Taking/PRN Fluticasone Furoate Not-Taking/PRN Fluticasone Propionate Not-Taking/PRN Metamucil Not- Taking/PRN Vitamin C Not-Taking/PRN Fluzone High-Dose 0.5 ML Suspension Prefilled Syringe TO BE ADMINISTERED BY PHARMACIST FOR IMMUNIZATION Intramuscular , Notes: Flu ShotMedication List reviewed and reconciled with the patient * Allergies:?AspirinAdvilAleve CodeineMotrinIbuprofenPenicillinyes[Allergies Verified] Objective: * Vitals:?Ht: 5 ft 3 in, Wt: 1 13, BMI: 20.01, Shoe size: 8.5M, Wt-k.26 kg. * Examination: ???Vascular: ?DP PULSES:? [...] Assessment: 1.?Tinea unguium - B35.1?2.? Atherosclerosis of [place] artery of both lower extremities, with unspecified presence of clinical manifestation - I70.203 (Primary)?3.?Pain in right toe(s) - M79.674?4.?Pain in left toe(s) - M79.675? Plan: * Treatment: 2.?Tinea unguium?Procedure: 44639-VTAAYGE NAIL, 6 OR MORE * Procedures:?Debride Nail 6-10:?Nail debridement?Nail debridement performed extensively to reduce/remove overall nail length, girth, thickness, subungual debris, and necrotic tissue, by manual and electrical means through the use of a nail nipper and/or dremel, to more viable healthy nail plate or bed tissue 1-5. Silver nitrate used for any petechial bleeding as necessary. Patient chooses, no pharmaceutical tx (33329).?Keratoma Treatment:?Parring or Cutting of Benign Hyperkeratotic Lesion(s)?42243 (2-4 Lesions) - The Benign hyperkeratotic lesions, as described above were pared, and/or cut utilizing a sterile #15 blade, tissue nippers, and/or dremel, Q8.? * Procedure Codes:?53281 DEBRI DE NAIL, 6 OR MORE, Modifiers: XS 41151 TRIM SKIN LESIONS, 2 TO 4, Modifiers: XS , Q8 * Follow Up:?prn * Images: * Sign off status: Completed Addendum: * ? true * Provider:?Álvaro Montgomery DPM Date:?2023 Generated for Jennifer christian/Asmita/Amira on:?08/03/2024 12:36 PM EST History and Physical Notes * HPI (History of Present Illness) Category Sub-Category Detail Notes Category Not es At Risk footcare Pt States Last PCP Visit: Date: 4 Examination Category Sub-Category Detail Notes Category [...]
--- OUTSIDE RECORDS SUMMARY | 2024-08-03 12:36 | XMS_ITS | Patient Health Record ---
Author Organization [facility] Address [address] [place] [address] Care Team Providers Care Radiology Specialist Name Role Phone Craig HAZEL, Lizbeth Primary Care Provider Unavail able Álvaro Montgomery Unavailable [phone] Allergies Allergen (clinical drug ingredient) Drug/Non Drug Allergy documented on EMR Reaction Allergy Type Onset Date Status ibuprofen Advil Unknown Drug Allergy Active Aleve Unknown Drug Allergy Active aspirin Aspirin Unknown Drug Allergy Active ibuprofen Ibuprofen Unknown Drug Allergy Active Motrin Unknown Drug Allergy Active codeine Codeine Unknown Drug Allergy Active Penicillin Unknown Drug Allergy Active Reason For Referral No Information Medications Medication SIG (Take, Route, Frequency, Duration) Notes Start Date End Date Status Cetirizine HCl PRN Not-T aking Fluzone High-Dose 0.5 ML TO BE ADMINISTERED BY PHARMACIST FOR IMMUNIZATION Intramuscular for 1 Flu Shot Not-Taking Omeprazole Not-Takin g Metamucil Not-Taking Primidone 50 MG Oral for 90 Days Active Vitamin C Not-Taking Vitamin D 1000 UNIT 1 tablet Orally Once a day 05/21/2016 Active Fluticasone Propionate Not-Taking ASO Ankle/Foot Stablizing AFO As directed Wear Daily for as needed 01/25/2020 Active Laxative Active Tylenol Not-Taking Levothyroxine Sodium 75 MCG TAKE 1/2 TABLET ON WEDNESDAY,WEDNESDAY AND WEDNESDAY AND 1 TABLET OTHER DAYS Oral for 30 Active Fluticasone Furoate Not-Taking Calcium + D Active Famotidine 10 MG 1 tablet as needed Orally Twice a day PRN Not-Taking Glucosamine Chondr Complex Active Gabapentin Not-Takin g Famotidine Active Citrucel Not-Taking Atorvastatin Calcium Active Loratadine 10 MG 1 tablet Orally Once a day PRN 05/21/2016 Not-Taking Immunizations Vaccine Route Administration Date Status Comme nts COVID-19 Pfizer BioNTech Vaccine Unknown 07/07/2020 Adm inistered COVID-19 Pfizer BioNTech Vaccine Unknown 07/28/2020 Adm inistered Social History Tobacco Use: Social History Observation [...] Are you an other tobacco user? No Problems Problem Type SNOMED Code ICD Code Onset Dates Problem Status W/U Status Risk Notes Problem Atherosclerosis of [place] arteries of the extremities (560532228129080) Atherosclerosis of [place] artery of both lower extremities, with unspecified presence of clinical manifestation (I70.203) Active confirmed Vital Signs Blood pressure diastolic 65 mm Hg 05/04/2024 Height 5 ft 3 in in 05/04/2024 Blood pressure systolic 120 mm Hg 05/04/2024 Weight 113 lbs 05/04/2024 BMI 20.01 kg/m2 05/04/2024 Procedures Procedure Date Ordered Date Performed Result Body Sit e 24817-ZSFJSJM NAIL, 6 OR MORE 08/19/2023 N/A 34050-SVSJ SKIN LESIONS, 2 TO 4 08/19/2023 N/A 06773-LTOMLNR NAIL, 6 OR MORE 12/23/2023 N/A 20145-NIZS SKIN LESIONS, 2 TO 4 12/23/2023 N/A 47782-TSFRTTT NAIL, 6 OR MORE 05/04/2024 N/A 63074-HKDT SKIN LESIONS, OVER 4 05/04/2024 N/A Encounters Encounter Location Date Provider Diagnosis [facility] [address] [address] 08/19/2023 Álvaro Mnotgomery Atherosclerosis of [place] artery of both lower extremities, with unspecified presence of clinical manifestation I70.203 ; Tinea unguium B35.1 ; Pain in right toe(s) M79.674 and Pain in left toe(s) M79.[address] [address] 12/23/2023 Álvaro Alanisunier Atherosclerosis of [place] artery of both lower extremities, with unspecified presence of clinical manifestation I70.203 ; Tinea unguium B35.1 ; Pain in right toe(s) M79.674 and Pain in left toe(s) M79.[address] [address] 05/04/2024 Álvaro Alanisunier Atherosclerosis of [place] artery of both lower extremities, with unspecified presence of clinical manifestation I70.203 ; Tinea unguium B35.1 ; Pain in right toe(s) M79.674 and Pain in left toe(s) M79.675 Assessments Encounter Date Diagnosis (ICD Code) Assessment Notes Treatment Notes Treatment Clinical Notes Section Notes 08/19/2023 Tinea unguium (ICD-10 - B35.1) 08/19/2023 Atherosclerosis of [place] artery of both lower extremities, with unspecified presence of clinical manifestation (ICD-10 - I70.203) 12/23/2023 Tinea unguium (ICD-10 - B35.1) 12/23/2023 Atherosclerosis of [place] artery of both lower extremities, with unspecified presence of clinical manifestation (ICD-10 - I70.203) 05/04/2024 Tinea unguium (ICD-10 - B35.1) 05/04/2024 Atherosclerosis of [place] artery of both lower extremities, with unspecified presence of clinical manifestation (ICD-10 - I70.203) 05/04/2024 Pain in right toe(s) (ICD-10 - M79.674) 08/19/2023 Pain in right toe(s) (ICD-10 - M79.674) 12/23/2023 Pain in right toe(s) (ICD-10 - M79.674) 08/19/2023 Pain in left toe(s) (ICD-10 - M79.675) 12/23/2023 Pain in left toe(s) (ICD-10 - M79.675) 05/04/2024 Pain in left toe(s) (ICD-10 - M79.675) Plan Of Treatment Pending Test Test Name Order Date 20139-MELIEIM NAIL, 6 OR MORE 01/25/2020 35955-ECBBAQG NAIL, 6 OR MORE 04/15/2020 78567-VFQOEXV NAIL, 6 OR MORE 09/12/2020 71009-WWTJROI NAIL, 6 OR MORE 03/06/2021 70372-EDCVSKS NAIL, 6 OR MORE 07/10/2021 48464-BCWUSQF NAIL, 6 OR MORE 11/06/2021 80948-DQFJYWF NAIL, 6 OR MORE 03/26/2022 65933-JDUFPRN NAIL, 6 OR MORE 07/30/2022 07881-RNDPUQJ NAIL, 6 OR MORE 12/03/2022 34288-LWQWRIN NAIL, 6 OR MORE 04/08/2023 70066-QPENFDT NAIL, 6 OR MORE 08/19/2023 09322-HQIRIBL NAIL, 6 OR MORE 12/23/2023 00615-DQFUXNB NAIL, 6 OR MORE 05/04/2024 00784-AKED SKIN LESIONS, OVER 4 05/04/20 24 12794-ASQJ SKIN LESIONS, 2 TO 4 12/23/19 24 30105-KPBN SKIN LESIONS, 2 TO 4 08/19/19 24 47994-KPJF SKIN LESIONS, 2 TO 4 04/08/20 23 34822-QBMY SKIN LESIONS, 2 TO 4 12/04/19 23 04879-RETK SKIN LESIONS, 2 TO 4 07/31/19 23 38559-AQIB SKIN LESIONS, 2 TO 4 03/26/20 22 Next Appt Details Provider Name:Álvaro Montgomery , 08/31/2024 08:45:00 AM, [address] [facility], [facility] [address], [place], [address], Insurance Providers Payer Name Payer Address Payer Phone Subscriber Number Group Number Insured Name Patient Relationship to Insured Coverage Start Date Coverage End Date Medicare National [facility] [address] [place] [address] [id number] Marly Page Self - patient is the insured Medex Blue [facility] [address] [place] [address] [id number] Marly Page Self - patient is the insured [facility] [address] [place] [address] [id number] Marly Page Self - patient is the insured Medical (General) History Medical History History ICD Code Arthritis Broken bones Cholesterol Sciatica chronic sinusitis Stomach ulcer Thyroid disorder Measles Chicken pox Anxiety Back,Hip,and Knee pain CAD (Cholesterol) basal cell carcinoma Cataracts 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
== END 2024-08-03 10:59 | disposition home or self-care (01) ==
PROVIDERS: PCP Internal Medicine; Visit Provider Psychiatry & Neurology Neurology
DX: R49.8 Other voice and resonance disorders (principal); G24.3 Spasmodic torticollis; F48.8 Other specified nonpsychotic mental disorders; G47.52 REM sleep behavior disorder
CPT/HCPCS: 99214

== ENCOUNTER → 2024-08-03 10:30 | Outpatient (BNVA) | payer MEDICARE, SELFPAY | PROVIDERS: PCP Internal Medicine; Visit Provider Psychiatry & Neurology Neurology | DX: R49.8 Other voice and resonance disorders (principal); G24.3 Spasmodic torticollis; F48.8 Other specified nonpsychotic mental disorders; G47.52 REM sleep behavior disorder | CPT/HCPCS: 99212 ==

== ENCOUNTER 2024-08-15 08:05 | Outpatient (AMB) | payer MEDICARE, SELFPAY ==
--- OUTSIDE RECORDS SUMMARY | 2024-08-15 08:12 | XMS_ITS ---
Author Organization [facility] Address [address] [place] [address] Care Team Providers Care Tar Distillation Supervisor Name Role Phone Craig HAZEL, Lizbeth Primary Care Provider Unavail able Álvaro Montgomery Unavailable [phone] Allergies Allergen (clinical drug ingredient) Drug/Non Drug [...] Ordered Date Performed Result Body Sit e 41387-FCLAZDE NAIL, 6 OR MORE 08/19/2023 N/A 61823-DNZM SKIN LESIONS, 2 TO 4 08/19/2023 N/A Encounters Encounter Location Date Provider Diagnosis [facility] [place] [address] [place] [address] 08/19/2023 Álvaro Montgomery Atherosclerosis of [place] artery of both lower extremities, with unspecified presence of clinical manifestation I70.203 ; Tinea unguium B35.1 ; Pain in right toe(s) M79.674 and Pain in left toe(s) M79.675 Assessments Encounter Date Diagnosis (ICD Code) Assessment Notes Treatment Notes Treatment Clinical Notes Section Notes 08/19/2023 Atherosclerosis of [place] artery of both lower extremities, with unspecified presence of clinical manifestation (ICD-10 - I70.203) 08/19/2023 Tinea unguium (ICD-10 - B35.1) 08/19/2023 Pain in right toe(s) (ICD-10 - M79.674) 08/19/2023 Pain in left toe(s) (ICD-10 - M79.675) Plan Of Treatment Pending Test Test Name Order Date 48596-NQWTSUC NAIL, 6 OR MORE 08/19/2023 04037-NWSZ SKIN LESIONS, 2 TO 4 08/19/19 24 Next Appt Details Follow Up: prn, Reason: Provider Name:Álvaro Parkerier , 08/31/2024 08:45:00 AM, [address] , [address], [place], [address], Procedure Notes * Category Sub-Category Detail Notes [...] as necessary. Patient chooses, no pharmaceutical tx (66160) Keratoma Treatment Parring or Cutting o f Benign Hyperkeratotic Lesion(s) 60378 (2-4 Lesions) - The Benign hyperkeratotic lesions, as described above were pared, and/or cut utilizing a sterile #15 blade, tissue nippers, and/or dremel, Q8 Progress Notes * Marly ORTIZ DDOB:[birth year] (83 yo F)Acc No.[id number]:08/19/2023 Progress Note Patient:?Marly Ortiz Provider:?Álvaro Montgomery DPM :1940???Age:83 Y???Sex:Female D ate:08/19/2023 Address:[address] [place], [place] [address] Pcp:Lizbeth Srinivasan MD Subjective: * Chief Complaints: [...] 194herniated disk repair 1948hysterectomy 1987fatty tumor removal 1992[facility], leg 10/29/22 * Hospitalization/Major Diagno stic Procedure:?[facility] Xray Lower leg & ankle right, Ultra sound lower right extremity 01/22/20[facility] [place], 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 ?Marital status: single. 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 * Medications:?TakingCetirizin e HCl , Notes: PRNOmeprazole [...] Assessment: 1.?Tinea unguium - B35.1?2.? Atherosclerosis of [place] artery of both lower extremities, with unspecified presence of clinical manifestation - I70.203 (Primary)?3.?Pain in right toe(s) - M79.674?4.?Pain in left toe(s) - M79.675? Plan: * Treatment: 2.?Tinea unguium?Procedure: 14808-FBGBVSM NAIL, 6 OR MORE * Procedures:?Debride Nail 6-10:?Nail debridement?Nail debridement performed extensively to reduce/remove overall nail length, girth, thickness, subungual debris, and necrotic tissue, by manual and electrical means through the use of a nail nipper and/or dremel, to more viable healthy nail plate or bed tissue 1-5. Silver nitrate used for any petechial bleeding as necessary. Patient chooses, no pharmaceutical tx (88616).?Keratoma Treatment:?Parring or Cutting of Benign Hyperkeratotic Lesion(s)?05870 (2-4 Lesions) - The Benign hyperkeratotic lesions, as described above were pared, and/or cut utilizing a sterile #15 blade, tissue nippers, and/or dremel, Q8.? * Procedure Codes:?77407 DEBRI DE NAIL, 6 OR MORE, Modifiers: XS 41315 TRIM SKIN LESIONS, 2 TO 4, Modifiers: XS , Q8 * Follow Up:?prn * Images: * Sign off status: Completed Addendum: * ? true * Provider:?Álvaro Montgomery DPM Date:?2023 Generated for Jennifer christian/Asmita/Amira on:?08/15/2024 08:12 AM EDT History and Physical Notes * HPI (History [...]
--- OUTSIDE RECORDS SUMMARY | 2024-08-15 08:12 | XMS_ITS | Patient Health Record ---
Author [facility] Address [address] [place] [address] Care Team Providers Care Revenue Settlements Administrator Name Role Phone Craig HAZEL, Lizbeth Primary Care Provider Unavail able Álvaro Montgomery Unavailable [phone] Allergies Allergen (clinical drug ingredient) Drug/Non Drug [...] W/U Status Risk Notes Problem Atherosclerosis of [place] arteries of the extremities (124767748950566) Atherosclerosis of [place] artery of both lower extremities, with unspecified presence of clinical manifestation (I70.203) Active confirmed Vital Signs Blood pressure diastolic 65 mm Hg 05/04/2024 Height 5 ft 3 in in 05/04/2024 Blood pressure systolic 120 mm Hg 05/04/2024 Weight 113 lbs 05/04/2024 BMI 20.01 kg/m2 05/04/2024 Procedures Procedure Date Ordered Date Performed Result Body Sit e 01047-GMKEHGK NAIL, 6 OR MORE 08/19/2023 N/A 99693-GQYP SKIN LESIONS, 2 TO 4 08/19/2023 N/A 78406-ZDUCNLD NAIL, 6 OR MORE 12/23/2023 N/A 24818-MUYJ SKIN LESIONS, 2 TO 4 12/23/2023 N/A 94838-HMTPFJJ NAIL, 6 OR MORE 05/04/2024 N/A 49308-EUOT SKIN LESIONS, OVER 4 05/04/2024 N/A Encounters Encounter Location Date Provider Diagnosis [facility] [address] [address] 08/19/2023 Álvaro Montgomery Atherosclerosis of [place] artery of both lower extremities, with unspecified presence of clinical manifestation I70.203 ; Tinea unguium B35.1 ; Pain in right toe(s) M79.674 and Pain in left toe(s) M79.[address] [address] 12/23/2023 Álvaro Alanisunier Atherosclerosis of [place] artery of both lower extremities, with unspecified presence of clinical manifestation I70.203 ; Tinea unguium B35.1 ; Pain in right toe(s) M79.674 and Pain in left toe(s) M79.[address] [address] 05/04/2024 Álvaro Alanisunier Atherosclerosis of [place] artery of both lower extremities, with unspecified presence of clinical manifestation I70.203 ; Tinea unguium B35.1 ; Pain in right toe(s) M79.674 and Pain in left toe(s) M79.675 Assessments Encounter Date Diagnosis (ICD Code) Assessment Notes Treatment Notes Treatment Clinical Notes Section Notes 08/19/2023 Tinea unguium (ICD-10 - B35.1) 08/19/2023 Atherosclerosis of [place] artery of both lower extremities, with unspecified presence of clinical manifestation (ICD-10 - I70.203) 12/23/2023 Tinea unguium (ICD-10 - B35.1) 12/23/2023 Atherosclerosis of [place] artery of both lower extremities, with unspecified presence of clinical manifestation (ICD-10 - I70.203) 05/04/2024 Tinea unguium (ICD-10 - B35.1) 05/04/2024 Atherosclerosis of [place] artery of both lower extremities, with unspecified [...] Treatment Pending Test Test Name Order Date 46033-GDGHSSL NAIL, 6 OR MORE 01/25/2020 88782-BHYFSEN NAIL, 6 OR MORE 04/15/2020 19702-CCHTMRH NAIL, 6 OR MORE 09/12/2020 55644-HXCNQUK NAIL, 6 OR MORE 03/06/2021 16925-VRIYZVK NAIL, 6 OR MORE 07/10/2021 05901-UMMHDPB NAIL, 6 OR MORE 11/06/2021 21710-XAULHLY NAIL, 6 OR MORE 03/26/2022 65604-UECTNKG NAIL, 6 OR MORE 07/30/2022 61019-VIVUGNY NAIL, 6 OR MORE 12/03/2022 19490-CTMKDGD NAIL, 6 OR MORE 04/08/2023 80272-ONCWOPC NAIL, 6 OR MORE 08/19/2023 55666-BHVRBNS NAIL, 6 OR MORE 12/23/2023 39799-KWPGPHK NAIL, 6 OR MORE 05/04/2024 30053-CPBL SKIN LESIONS, OVER 4 05/04/20 24 26703-IMYV SKIN LESIONS, 2 TO 4 12/23/19 24 50891-AQST SKIN LESIONS, 2 TO 4 08/19/19 24 35736-KZVK SKIN LESIONS, 2 TO 4 04/08/20 23 42194-VPJV SKIN LESIONS, 2 TO 4 12/04/19 23 26478-FEDF SKIN LESIONS, 2 TO 4 07/31/19 23 04311-LHTG SKIN LESIONS, 2 TO 4 03/26/20 22 Next Appt Details Provider Name:Álvaro Montgomery , 08/31/2024 08:45:00 AM, [address] [facility] [address], [place], [address], Insurance Providers Payer Name Payer Address Payer Phone Subscriber Number Group Number Insured Name Patient Relationship to Insured Coverage Start Date Coverage End Date Medicare National [facility] [address] [place] [address] [id number] Marly Page Self - patient is the insured Medex Blue [facility] [address] [place] [address] [phone] [id number] Marly Page Self - patient is the insured [facility] [address] [place] [address] [phone] [id number] Marly Page Self - patient is the [...] surgery, leg 10/29/22 Hospitalization History Reason Date(Month/Year) [place], acc[place]ie sciatica 12/2020 [facility] Xray Lower leg & ankle right, Ultra sound lower right extremity 01/22/20
--- OUTSIDE RECORDS SUMMARY | 2024-08-15 08:12 | XMS_ITS ---
Author Organization [facility] Address [address] [place] [address] Care Team Providers Care Research Anthropologist Name Role Phone Craig HAZEL, Lizbeth Primary Care Provider Unavail able Álvaro Montgomery Unavailable [phone] Allergies Allergen (clinical drug ingredient) Drug/Non Drug [...] Ordered Date Performed Result Body Sit e 07541-IILAPHN NAIL, 6 OR MORE 12/23/2023 N/A 69619-NNOR SKIN LESIONS, 2 TO 4 12/23/2023 N/A Encounters Encounter Location Date Provider Diagnosis [facility] [address] [address] 12/23/2023 Álvaro Montgomery Atherosclerosis of hopi artery of both lower extremities, with unspecified presence of clinical manifestation I70.203 ; Tinea unguium B35.1 ; Pain in right toe(s) M79.674 and Pain in left toe(s) M79.675 Assessments Encounter Date Diagnosis (ICD Code) Assessment Notes Treatment Notes Treatment Clinical Notes Section Notes 12/23/2023 Atherosclerosis of hopi artery of both lower extremities, with unspecified presence of clinical manifestation (ICD-10 - I70.203) 12/23/2023 Tinea unguium (ICD-10 - B35.1) 12/23/2023 Pain in right toe(s) (ICD-10 - M79.674) 12/23/2023 Pain in left toe(s) (ICD-10 - M79.675) Plan Of Treatment Pending Test Test Name Order Date 13966-QNSMBKX NAIL, 6 OR MORE 12/23/2023 98604-USQU SKIN LESIONS, 2 TO 4 12/23/19 24 Next Appt Details Follow Up: prn, Reason: Provider Name:Álvaro Patricia Montgomery , 08/31/2024 08:45:00 AM, [address] , [address], [place], [address], Procedure Notes * Category Sub-Category Detail Notes [...] as necessary. Patient chooses, no pharmaceutical tx (08831) Keratoma Treatment Parring or Cutting o f Benign Hyperkeratotic Lesion(s) 79735 (2-4 Lesions) - The Benign hyperkeratotic lesions, as described above were pared, and/or cut utilizing a sterile #15 blade, tissue nippers, and/or dremel, Q8 Progress Notes * Marly ORTIZ DDOB:[birth year] (83 yo F)Acc No.[id number]:12/23/2023 Progress Note Patient:?Marly Ortiz Provider:?Álvaro Montgomery DPM :1940???Age:83 Y???Sex:Female D ate:12/23/2023 Address:[address] [place], [place] [id number] Pcp:Lizbeth Srinivasan MD Subjective: * Chief Complaints: [...] 1945herniated disk repair 1948hysterectomy 1987fatty tumor removal 1993[facility] surgery, leg 10/29/22 * Hospitalization/Major Diagno stic [place] [place] & [place] right, Ultra sound lower right extremity 01/22/20[facility] [place], 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 ?Marital status: single. 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 * Medications:?TakingFamotidin e Atorvastatin Calcium Calcium + [...] Assessment: 1.?Tinea unguium - B35.1?2.? Atherosclerosis of hopi artery of both lower extremities, with unspecified presence of clinical manifestation - I70.203 (Primary)?3.?Pain in right toe(s) - M79.674?4.?Pain in left toe(s) - M79.675? Plan: * Treatment: 2.?Tinea unguium?Procedure: 01429-HIAVSHO NAIL, 6 OR MORE * Procedures:?Debride Nail 6-10:?Nail debridement?Nail debridement performed extensively to reduce/remove overall nail length, girth, thickness, subungual debris, and necrotic tissue, by manual and electrical means through the use of a nail nipper and/or dremel, to more viable healthy nail plate or bed tissue 1-5. Silver nitrate used for any petechial bleeding as necessary. Patient chooses, no pharmaceutical tx (20439).?Keratoma Treatment:?Parring or Cutting of Benign Hyperkeratotic Lesion(s)?51452 (2-4 Lesions) - The Benign hyperkeratotic lesions, as described above were pared, and/or cut utilizing a sterile #15 blade, tissue nippers, and/or dremel, Q8.? * Procedure Codes:?73442 DEBRI DE NAIL, 6 OR MORE, Modifiers: XS 29500 TRIM SKIN LESIONS, 2 TO 4, Modifiers: XS , Q8 * Follow Up:?prn * Images: * Sign off status: Completed Addendum: * ? true * Provider:?Álvaro Montgomery DPM Date:?2023 Generated for Jennifer christian/Asmita/Amria on:?08/15/2024 08:12 AM EDT History and Physical [...]
--- OUTSIDE RECORDS SUMMARY | 2024-08-15 08:12 | XMS_ITS ---
Author Organization [facility] Address [address] [place] [address] Care Team Providers Care Aluminum Boat Assembly Supervisor Name Role Phone Craig HAZEL, Lizbeth Primary Care Provider Unavail able Álvaro Montgomery Unavailable [phone] Allergies Allergen (clinical drug ingredient) Drug/Non Drug [...] Duration) Notes Start Date End Date Status Fluzone High-Dose 0.5 ML TO BE ADMINISTERED BY PHARMACIST FOR IMMUNIZATION Intramuscular for 1 Flu Shot Not-Taking Metamucil Not-Taking Vitamin C Not-Taking Fluticasone Propionate Not-Taking Fluticasone Furoate Not-Taking Tylenol Not-Taking Famotidine 10 MG 1 tablet as needed Orally Twice a day PRN Not-Taking Gabapentin Not-Takin g Citrucel Not-Taking Loratadine 10 MG 1 tablet Orally Once a day PRN 05/21/2016 Not-Taking Cetirizine HCl PRN Not-T aking Omeprazole Not-Takin g Primidone 50 MG Oral for 90 Days Active Vitamin D 1000 UNIT 1 tablet Orally Once a day 05/21/2016 Active ASO Ankle/Foot Stablizing AFO As directed Wear Daily for as needed 01/25/2020 Active Laxative Active Levothyroxine Sodium 75 MCG TAKE 1/2 TABLET ON WEDNESDAY,WEDNESDAY AND WEDNESDAY AND 1 TABLET OTHER DAYS Oral for 30 Active Calcium + D Active Glucosamine Chondr Complex Active Atorvastatin Calcium Active Famotidine Active Social History Tobacco Use: Social History Observation Description Date Details (start date - stop date) Never Smoker NA - NA Tobacco Use/Smoking Question Answer Notes Are you a: nonsmoker Additional Findings: Tobacco Non-User Current no n-smoker Tobacco use other than smoking: Question Answer Notes Are you an other tobacco user? No Vital Signs Height 5 ft 3 in in 05/04/2024 Weight 113 lbs 05/04/2024 BMI 20.01 kg/m2 05/04/2024 Blood pressure systolic 120 mm Hg 05/04/20 Blood pressure diastolic 65 mm Hg 024 Procedures Procedure Date Ordered Date Performed Result Body Sit e 89028-NSGFZYF NAIL, 6 OR MORE 05/04/2024 N/A 71600-UTHZ SKIN LESIONS, OVER 4 05/04/2024 N/A Encounters Encounter Location Date Provider Diagnosis [facility] [place] [address] [place] [address] 05/04/2024 Álvaro Montgomery Atherosclerosis of yurok artery of both lower extremities, with unspecified presence of clinical manifestation I70.203 ; Tinea unguium B35.1 ; Pain in right toe(s) M79.674 and Pain in left toe(s) M79.675 Assessments Encounter Date Diagnosis (ICD Code) Assessment Notes Treatment Notes Treatment Clinical Notes Section Notes 05/04/2024 Atherosclerosis of yurok artery of both lower extremities, with unspecified presence of clinical manifestation (ICD-10 - I70.203) 05/04/2024 Tinea unguium (ICD-10 - B35.1) 05/04/2024 Pain in right toe(s) (ICD-10 - M79.674) 05/04/2024 Pain in left toe(s) (ICD-10 - M79.675) Plan Of Treatment Pending Test Test Name Order Date 83332-KMSYGLS NAIL, 6 OR MORE 05/04/2024 72597-ZWSG SKIN LESIONS, OVER 4 05/04/20 24 Next Appt Details Follow Up: prn, Reason: Provider Name:Álvaro Montgomery , 08/31/2024 08:45:00 AM, [address] , [address], [place], [address], Procedure Notes * Category Sub-Category Detail Notes Debride Nail 6-10 Nail debridement Performance o f this nail treatment by a nonprofessional would put this patients foot and overall health at risk. Therefore, debridement to affected nail(s), as described in exam, was performed extensively to reduce/remove overall nail length, girth, thickness, subungual debris, and necrotic tissue, by manual and/or electrical means through the use of a nail nipper and/or dremel-type glass grinder, to a more viable healthy nail plate or bed tissue 6-10 nails in total. Silver nitrate was used for any petechial bleeding as necessary. Definitive antifungal treatment options, both pharmaceutical and surgical, have been reviewed and discussed with the patient. The patient solely prefers the use of intermittent/as needed professional debridement services for their nail condition and understands the need for additional periodic treatments to maintain effectiveness in symptomatic relief - 68063 Keratoma Treatment Parring or Cutting o f Benign Hyperkeratotic Lesion(s) (-57) More than 4 Lesions - The Benign hyperkeratotic lesions, ( 7) in total, locations as stated and described in exam, were pared, and/or cut utilizing a sterile 15 blade, tissue nippers, and/or power dremel instrumentation - 23361, Q8 Progress Notes * Marly ORTIZ DDOB:[birth year] (84 yo F)Acc No.[id number]:05/04/2024 Progress Note Patient:?Marly ORTIZ Provider:?Álvaro Montgomery DPM :1940???Age:84 Y???Sex:Female D ate:05/04/2024 Address:[address] [place] [address], [id number] Pcp:Lizbeth Srinivasan MD Subjective: * Chief Complaints: * ???At Risk FootcarePainful N ail(s) aggrevated by shoes and causing difficulty standing/walking. * HPI: ???At Risk footcare:?Pt States Last PCP Visit:?Date?02/14/2024 * ROS:?General/Constitutional:?Nausea?denies.?Vomiting?denies.?Hunger Thirst?denies.?Loss appetite?denies.?Chills?denies.?Fatigue?denies.?Fever?denies.?Night Sweats?denies.?Unexplained weight loss?denies.?Unexplained [...] 194herniated disk repair 1948hysterectomy 1987[facility], [facility] 10/29/22 * Hospitalization/Major Diagno stic Procedure:?[facility] [place] Lower leg & ankle right, Ultra sound lower right extremity [place], accute sciatica 12/2020 * Family History:?Mother: [...] than smoking?Are you an other tobacco user??No * Medications:?TakingFamotidin e Atorvastatin Calcium Calcium + D Glucosamine Chondr Complex Laxative Levothyroxine Sodium 75 MCG Tablet TAKE 1/2 TABLET ON WEDNESDAY,WEDNESDAY AND WEDNESDAY AND 1 TABLET OTHER DAYS Oral Vitamin D 1000 UNIT Tablet 1 tablet Orally Once a day ASO Ankle/Foot Stablizing AFO As directed Wear Daily Primidone 50 MG Tablet Oral Taking Famotidine Taking Atorvastatin Calcium Taking Calcium + D Taking Glucosamine Chondr Complex Taking Laxative Taking Levothyroxine Sodium 75 MCG Tablet TAKE 1/2 TABLET ON WEDNESDAY,WEDNESDAY AND WEDNESDAY AND 1 TABLET OTHER DAYS Oral Taking Vitamin D 1000 UNIT Tablet 1 tablet Orally Once a day Taking ASO Ankle/Foot Stablizing AFO As directed Wear Daily Taking Primidone 50 MG Tablet Oral Not-Taking/PRNCetirizine HCl , Notes to Pharmacist: PRNOmeprazole Citrucel Loratadine 10 MG Tablet 1 tablet Orally Once a day , Notes to Pharmacist: PRNFamotidine 10 MG Tablet 1 tablet as needed Orally Twice a day , Notes to Pharmacist: PRNGabapentin Tylenol Fluticasone Furoate Fluticasone Propionate Metamucil Vitamin C Fluzone High-Dose 0.5 ML Suspension Prefilled Syringe TO BE ADMINISTERED BY PHARMACIST FOR IMMUNIZATION Intramuscular , Notes to Pharmacist: Flu ShotMedication List reviewed and reconciled with the patientNot-Taking/PRN Cetirizine HCl , Notes to Pharmacist: PRNNot-Taking/PRN Omeprazole Not-Taking/PRN Citrucel Not-Taking/PRN Loratadine 10 MG Tablet 1 tablet Orally Once a day , Notes to Pharmacist: PRNNot-Taking/PRN Famotidine 10 MG Tablet 1 tablet as needed Orally Twice a day , Notes to Pharmacist: PRNNot-Taking/PRN Gabapentin Not-Taking/PRN Tylenol Not-Taking/PRN Fluticasone Furoate Not-Taking/PRN Fluticasone Propionate Not-Taking/PRN Metamucil Not-Taking/PRN Vitamin C Not-Taking/PRN Fluzone High- Dose 0.5 ML Suspension Prefilled Syringe TO BE ADMINISTERED BY PHARMACIST FOR IMMUNIZATION Intramuscular , Notes to Pharmacist: Flu ShotMedication List reviewed and reconciled with the patient * Allergies:?AspirinAdvilAleve CodeineMotrinIbuprofenPenicillinyes[Allergies Verified] Objective: * Vitals:?Ht: 5 ft 3 in, Wt: 1 13, BMI: 20.01, Shoe size: 8.5M, BP: 120/65 mm Hg, Wt-k.26 kg. * Examination: ???Vascular: ?DP PULSES(B):? 0/4, B/L.?PT PULSES(B):? 1/4, B/L.?CAPILLARY FILL TIME:? delayed, all digits, B/L.?TROPHIC CONDITION-TEXTURE/ELASTICITY/TURGOR/HAIR GROWTH(B):? decreased,?with sparse to absent hair growth, B/L.?TEMPERTURE GRADIENT(C):? decreased, cool to cool, proximal to distal, B/L.?PIGMENTATION:? mottled, B/L.?EDEMA(C):?absent, B/L.?CLAUDICATION(C):?denies, B/L.?REST PAIN:?denies, B/L.?Nails: ?NAILS are:?Elongated, overgrown, dystrophic, lytic, greater than 3mm thick, discolored and friable with crumbly malodorous subungual debris, with pain on palpation, T1, T2, T3, T4, T6, T7, T8, T9.?Dermatologic: ?SKIN FINDINGS:? Skin exam reveals Keratotic lesion(s) located at,?Medial,?IPJ,?TA,?Medial ,?IPJ ,T5, Lateral, DIPJ, T7,SUB MTH (s),1,B/L, Plantar, Heel(s), B/L .? Assessment: * Assessment: 1.?Tinea unguium - B35.1???2 .?Atherosclerosis of yurok artery of both lower extremities, with unspecified presence of clinical manifestation - I70.203 (Primary)???3.?Pain in right toe(s) - M79.674???4.?Pain in left toe(s) - M79.675??? Plan: * Treatment: 2.?Tinea unguium?Procedure: 88185-ZTVZBNP NAIL, 6 OR MORE * Procedures:?Debride Nail 6-10:?Nail debridement?Performance of this nail treatment by a nonprofessional would put this patients foot and overall health at risk. Therefore, debridement to affected nail(s), as described in exam, was performed extensively to reduce/remove overall nail length, girth, thickness, subungual debris, and necrotic tissue, by manual and/or electrical means through the use of a nail nipper and/or dremel-type glass grinder, to a more viable healthy nail plate or bed tissue 6-10 nails in total. Silver nitrate was used for any petechial bleeding as necessary. Definitive antifungal treatment options, both pharmaceutical and surgical, have been reviewed and discussed with the patient. The patient solely prefers the use of intermittent/as needed professional debridement services for their nail condition and understands the need for additional periodic treatments to maintain effectiveness in symptomatic relief - 75963.?Keratoma Treatment:?Parring or Cutting of Benign Hyperkeratotic Lesion(s)?(-57) More than 4 Lesions - The Benign hyperkeratotic lesions, ( 7) in total, locations as stated and described in exam, were pared, and/or cut utilizing a sterile 15 blade, tissue nippers, and/or power dremel instrumentation - 31956, Q8.? * Procedure Codes:?18649 DEBRI DE NAIL, 6 OR MORE, Modifiers: XS 19781 TRIM SKIN LESIONS, OVER 4, Modifiers: XS , Q8 * Follow Up:?prn * Images: * Sign off status: Completed true * Provider:?Álvaro Montgomery DPM Date:?2023 Generated for Jennifer christian/Asmita/eTziitting on:?08/15/2024 08:11 AM EDT History and Physical Notes * HPI (History of Present Illness) Category Sub-Category Detail Notes Category Not es At Risk footcare Pt States Last PCP Visit: Date: 4 Examination Category Sub-Category Detail Notes Category Not es Dermatologic SKIN FINDINGS: Skin exam reveal s Keratotic lesion(s) located at, Medial, IPJ, TA, Medial , IPJ ,T5, Lateral, DIPJ, T7,SUB MTH (s),1,B/L, Plantar, Heel(s), B/L Vascular DP PULSES (B): 0/4, B/L PT PULSES (B): 1/4, B/L CAPILLARY FILL TIME: delayed, all digits , B/L TEMPERTURE GRADIENT (C): decreased, cool to cool, proximal to distal, B/L TROPHIC CONDITION-TEXTURE/ELASTICITY/TURGOR/HAIR GROWTH (B): decreased, with sparse to absent hair gr owth, B/L EDEMA (C): absent, B/L CLAUDICATION (C): denies, B/L REST PAIN: denies, B/L PIGMENTATION: mottled, B/L Nails NAILS are: Elongated, overg rown, dystrophic, lytic, greater than 3mm thick, discolored and friable with crumbly malodorous subungual debris, with pain on palpation, T1, T2, T3, T4, T6, T7, T8, T9
--- NOTE | 2024-08-15 08:17 | MHC.PC.OV ---
Vital Signs 08/15/24 08:18 Height 5 ft 2.5 in Weight 117 lb BMI 21.1 BP 118/70 Blood Pressure Location Lt brachial Position Sitting Intake Visit Reasons: thyroid Intake Note: Patient here for a follow up Thyroid Client Success Director Required: No Accompanied by: Self / Same As Patient Allergies penicillin G Allergy (Intermediate, Verified 08/15/24 08:30) rash aspirin Adverse Reaction (Intermediate, Verified 08/15/24 08:30) Contraindicated due to Cerebral vascular maformat Codeine Sulfate Allergy (Intermediate, Uncoded 08/15/24 08:30) rash Ibuprofen Allergy (Intermediate, Uncoded 08/15/24 08:30) hives Medication List - Last Reconciled 08/15/24 by Lizbeth Alvarenga MD atorvastatin 10 mg PO BEDTIME 90 days calcium carbonate-vitamin D3 500 mg-10 mcg (400 unit) 1 tab PO DAILY cholecalciferol (vitamin D3) 25 mcg PO DAILY clobetasol 0.05% 1 appl topical BID famotidine 20 mg PO DAILY gabapentin 100 mg PO BEDTIME glucosamine-chondroitin 500-400 mg 1 tab PO DAILY levothyroxine 75 mcg PO DAILY melatonin 3 mg PO BEDTIME PRN polyethylene glycol 3350 17 grams PO DAILY simethicone (Gas Relief (simethicone)) 160 mg (2 x 80 mg) PO BID-TID 30 days Tobacco use date assessed: 08/15/24 Fall risk assessment: No Falls in past year Last assessed Fall Risk: 08/15/24 Dental Screening Dental Screen Date: 08/15/24 Did you have a dental visit in the last 12 months?: Yes Did you have a dental problem in the last 6 months where you did not have access to dental care?: No Was dental information given to patient?: Patient has dentist HPI HPI Comments History of Present Illness Details The patient is an 84-year-old female presenting with chronic constipation and a history of hypothyroidism, dyslipidemia, osteopenia, and medication management challenges. Over recent months, she has struggled with loss of bowel sensation and movement control. Despite utilizing MiraLAX, Metamucil, and bisacodyl, she experienced an episode of fecal impaction relieved manually by a care provider. The patient reports subsequent irregularity and difficulties in maintaining bowel movement regularity. She has history of chronic low back pain and has a tethered cord which was evaluated by Neurosurgery and surgery was hold due to back pain improved with physical therapy. Now she is having loss of sphincter tone requiring a new MRI of lumbar spine and Neurosurgery re-evaluation. [facility] Medical History (Updated 08/15/24 @ 08:44 by Lizbeth Alvarenga MD) Tethered cord REM behavioral disorder Writers' cramp Cervical dystonia Urge urinary incontinence Pure hypercholesterolemia Chronic constipation Jaw pain Right hand pain Familial tremor GERD (gastroesophageal reflux disease) Voice hoarseness Hypothyroidism Surgical History History of colonoscopy S/P TC-BSO H/O inguinal hernia repair Hx of tonsillectomy Family History Mother IBS (irritable bowel syndrome) Skin cancer Dementia Father Heart disease Social History Household Members Other:: Rehab Housing: Apartment Alcohol intake: current Alcohol intake frequency: a few times a month Alcohol type: wine Patient Tobacco Use Status: Never used Tobacco e-Cigarette/Vaping Use: Never Used Second Hand Smoke Exposure: No service: No Current occupational status: retired Cognitive needs: No Hearing needs: No Vision needs: Yes Questionnaire PHQ-9 Over the last 2 weeks, how often have you been bothered by any of the following problems? 1. Little interest or pleasure in doing things: not at all 2. Feeling down, depressed, or hopeless: not at all 3. Trouble falling or staying asleep, or sleeping too much: not at all 4. Feeling tired or having little energy: not at all 5. Poor appetite or overeating: not at all 6. Feeling bad about yourself - or that you are a failure or have let yourself or your family down: not at all 7. Trouble concentrating on things, such as reading the newspaper or watching television: not at all 8. Moving or speaking so slowly that other people could have noticed. Or the opposite - being so fidgety or restless that you have been moving around a lot more than usual: not at all 9. Thoughts that you would be better off or of hurting yourself in some way: not at all Total score: 0 Depression Screening Interpretation: Negative Depression Screening Done: Yes 47117 - PHQ-9 Billing: Yes Source: Developed by Drs. Diaz Wylie, Bruna Calloway, Ross Sorto and colleagues, with an educational joanne from [employer]. Thrive Questionnaire Date Thrive assessed: 08/15/24 I am a: Patient What is your living situation today?: I have a steady place to live Within the past 12 months, did the food you bought not last and you didn't have the money to get more?: Never true Within the past 12 months, did you worry whether your food would run out before you got money to buy more?: Never true Do you have trouble paying for medicines?: No Do you have trouble getting transportation to medical appointments?: No Do you have trouble paying your heating and electricity bill?: No Do you have trouble taking care of your child, family member or friend?: No Do you have trouble with day-to-day activities such as bathing, preparing meals, shopping, managing finances, etc.?: No Are you currently unemployed and looking for a job?: No Are you interested in more education?: No Please select the resources that you would like help with: None Currently or been in a relationship where the following occur: No concerns reported THRIVE Score: 0 AUDIT C Alcohol Use Questionnaire (AUDIT-C) 1. How often do you have a drink containing alcohol?: 2-4 times a month 2. How many drinks containing alcohol do you have on a typical day when you are drinking?: 1 or 2 3. How often do you have six or more drinks on one occasion?: Never Total Score: 2 Score Reviewed/Action Taken: No LEXUS-7 AMB Questionnaire LEXUS-7 Date LEXUS - 7 assessed: 08/15/24 Feeling nervous, anxious, or on edge: 1 = Several days Not being able to stop or control worryin = Not at all Worrying too much about different things: 0 = Not at all Trouble relaxin = Not at all Being so restless that it is hard to sit still: 0 = Not at all Becoming easily annoyed or irritable: 0 = Not at all Feeling afraid as if something awful might happen: 0 = Not at all Total LEXUS-7 score (0-4 normal; 5-9 mild; 10-14 moderate; 15-21 severe): 1 Source: Developed by Drs. Diaz Wylie, Bruna Calloway, Ross Sorto and colleagues, with an educational joanne from [employer]. LEXUS-7 Assessment Billing LEXUS-7 Assessment Tool: LEXUS-7 Assessment 27537 Review of Systems Const All systems reviewed & are unremarkable except as noted in HPI and below Card Denies chest pain at rest, Denies chest pain with activity, Denies edema, Denies irregular heart rhythm, Denies claudication, Denies dyspnea, Denies dyspnea on exertion, Denies orthopnea, Denies paroxysmal nocturnal dyspnea and Denies slow heart rate Resp Denies cough, Denies dyspnea and Denies dyspnea on exertion GI Denies abdominal pain, Denies change in bowel habits, Reports constipation, Denies excessive flatus, Denies nausea and Denies vomiting Denies urinary incontinence, Denies urinary hesitancy and Denies urinary urgency Musc Denies atrophy, Denies deformity and Denies limited range of motion Skin/Breast Denies bleeding lesions, Denies changing lesions and Denies rash Physical exam (Primary Care) Vital Signs: Last Vital Signs BP 118/70 08/15/24 08:18 BMI result Body Mass Index 21.1 Tobacco/Smoking Status: Tobacco use Status Tobacco use date assessed 08/15/24 08/15/24 08:25 Patient Tobacco Use Status Never used Tobacco 08/15/24 08:25 e-Cigarette/Vaping Use Never Used 08/15/24 08:25 PHQ-9: PHQ-9 Score PHQ-9: Total score 0 08/15/24 09:23 Depression Screening Interpretation: Negative Thrive Assessment: Date of Thrive Assessment Date Thrive assessed 08/15/24 08/15/24 08:25 Currently or been in a relationship where the following occur: No concerns reported Resp Effort & Inspection: normal respiratory effort Auscultation: clear to auscultation bilaterally Cardio Jugular venous distension: no JVD Rate: regular rate Rhythm: regular rhythm Heart sounds: S1 normal heart sound present and S2 normal heart sound present Extrem General: Yes full ROM Coding Level of Care Code Est Pt Level 4 (56963) Complex EM visit Add On G2211 Diagnoses Tethered cord Q06.8 Chronic constipation K59.09 Hypothyroidism, unspecified type E03.9 Hypothyroidism type: unspecified Cervical dystonia G24.3 Pure hypercholesterolemia E78.00 Additional Codes LEXUS-7 Assessment Billing - LEXUS-7 Assessment Tool: LEXUS-7 Assessment 70549 ([id number]) PHQ-9 - 39363 - PHQ-9 Billing: Yes ([id number]) Time Spent (min) 22 Assessment & Plan Assessment & Plan (1) Tethered cord: Code(s): Q06.8 - Other specified congenital malformations of spinal cord Category: Medical (2) Chronic constipation: Code(s): K59.09 - Other constipation Category: Medical (3) Hypothyroidism: Comment: cont same meds Code(s): E03.9 - Hypothyroidism, unspecified Category: Medical Qualifiers: Hypothyroidism type: unspecified Qualified Code(s): E03.9 - Hypothyroidism, unspecified (4) Cervical dystonia: Code(s): G24.3 - Spasmodic torticollis Category: Medical (5) Pure hypercholesterolemia: Code(s): E78.00 - Pure hypercholesterolemia, unspecified Category: Medical Plan The patient will initiate lactulose therapy to address constipation alongside her existing regimen, with a plan for reevaluation if ineffective. Gastroenterology and neurology evaluations were recommended for comprehensive treatment of gastrointestinal and neurological symptoms. An MRI of the lumbar spine was ordered to revisit tethered cord syndrome concerns. Continuation of dietary and exercise interventions was advised. Medication review and adjustments were discussed, focusing on reducing constipation and evaluating contributions of gabapentin. Patient was informed and verbally consented to the use of an ambient scribe for clinic note documentation during this visit. I discussed with the patient the management and likely diagnosis of chronic constipation exacerbated by several factors, including medication side effects. Options such as lactulose were introduced, delineating the benefits, particularly its osmotic effect alleviating constipation symptoms. Risks such as potential diarrhea were acknowledged. The importance of reevaluation by gastroenterology and inclusion of a spine review with MRI imaging was conveyed. We conversed about neurology consultation to reassess neurological conditions potentially affecting bowel functionality. Recommendations for exercise and dietary guidelines were reiterated. Follow-up arrangements and continuity of care through future evaluations were emphasized. Orders: Orders MR lumbar spine wo con Today Q06.8 - Other specified congenital malformations of spinal cord Referrals Neurosurgery Referral Q06.8 - Other specified congenital malformations of spinal cord Gastroenterology Referral K59.09 - Other constipation Medications: New lactulose 20 grams PO BID PRN 15 ea 2RF constipation 30 days K59.09 - Other constipation Patient Instructions: - Start taking lactulose as directed to help with bowel movements. - Continue with the high-fiber diet and regular exercise habits. - Monitor and note any changes in bowel habits or discomfort. - Keep track of medication use and bring any questions or issues to your next appointment. - Follow up with suggested gastroenterology and neurology specialists for further evaluation. - Plan for an MRI of the lumbar spine for comprehensive assessment of potential spinal issues.
[2024-08-15 08:18] VITALS: BP 118/70; BMI 21.1
== END 2024-08-15 09:03 | disposition home or self-care (01) ==
LOC: HO.HMCH 08:06
PROVIDERS: PCP Internal Medicine; Visit Provider Internal Medicine
DX: Q06.8 Other specified congenital malformations of spinal cord (principal); K59.09 Other constipation; E03.9 Hypothyroidism, unspecified; G24.3 Spasmodic torticollis; E78.00 Pure hypercholesterolemia, unspecified

== ENCOUNTER 2024-08-15 08:05 | Outpatient (REF) | payer MEDICARE, SELFPAY ==
[2024-08-15 11:08] LABS: Thyroid Stimulating Hormone 0.75 uIU/mL (0.32-4.0)
== END 2024-08-15 08:06 | disposition home or self-care (01) ==
LOC: HO.LAB 08:05
PROVIDERS: PCP Internal Medicine; Visit Provider Internal Medicine
DX: E03.9 Hypothyroidism, unspecified (principal); K59.09 Other constipation; G24.3 Spasmodic torticollis; E78.00 Pure hypercholesterolemia, unspecified; Q06.8 Other specified congenital malformations of spinal cord
CPT/HCPCS: 36415; 84443; 96127; 99212

== ENCOUNTER 2024-08-26 09:04 | Outpatient (REF) | payer MEDICARE, SELFPAY ==
--- NOTE | ~2024-08-26 | MR_ITS ---
CLINICAL HISTORY: Q06.8 - Other specified congenital malformations of spinal cord MR lumbar spine without gadolinium Comparison: None Findings: Normal alignment. No acute fracture or pathologic bone lesion. Cauda equina and conus medullaris within normal limits. L3-L4: Moderate diffuse annular bulge with associated central annular tear deforms the dural sac. This is eccentric to the right narrowing the right lateral recess. There is also facet hypertrophy and ligamentum flavum hypertrophy at this level and mild central spinal stenosis. There is bilateral foraminal narrowing. L4-L5: Small to moderate annular bulge deforms the dural sac. There is also a small central annular tear. There is facet hypertrophy and ligamentum flavum hypertrophy as well as bilateral neural foraminal narrowing Paraspinous musculature intact. T12-L1: No significant annular bulge or focal herniation. Neural foramina are patent. L1-L2: No significant annular bulge or focal disc herniation. Neural foramina are patent. There is mild facet hypertrophy. L2-L3: No significant annular bulge or focal herniation. The neural foramina are patent. L5-S1: No significant annular bulge or focal disc herniation. The neural foramina are patent. 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 Annular bulge with central annular tear. IMPRESSION: 1. Moderate diffuse annular bulge at L3-4 eccentric to the right narrowing the right lateral recess. There is bilateral neural foraminal narrowing at this level. There is mild central spinal stenosis here. 2. [id number] diffuse annular bulge L4-L5 deforms the dural sac and is associated with a small central annular tear. There is mild bilateral neural foraminal narrowing. 3. Large sacral Tarlov cyst. This document has been electronically signed by: James Méndez MD on 08/26/2024 11:54:25
== END 2024-08-26 09:05 | disposition home or self-care (01) ==
LOC: HO.MRI 09:04
PROVIDERS: PCP Internal Medicine; Visit Provider Internal Medicine
DX: Q06.8 Other specified congenital malformations of spinal cord (principal)
CPT/HCPCS: 72148

== ENCOUNTER → 2024-08-26 09:11 | Outpatient (BNV) | payer MEDICARE, SELFPAY | PROVIDERS: PCP Internal Medicine; Visit Provider Radiology Diagnostic Radiology | DX: M51.26 Other intervertebral disc displacement, lumbar region (principal) | CPT/HCPCS: 72148 ==

== ENCOUNTER 2024-10-04 14:44 | Outpatient (AMB) | payer MEDICARE, SELFPAY ==
--- NOTE | 2024-10-04 14:46 | MHC.OFFVIS ---
Vital Signs 10/04/24 14:47 Height 5 ft 2.5 in Weight 113 lb BMI 20.3 BP 125/51 L Blood Pressure Location Lt brachial Position Sitting Pulse 62 Oxygen Delivery Method Room Air Intake Visit Reasons: Constipation/angelina pt jacqui 12/02/2021. Intake Note: Complex follow up for Constipation/Angelina pt jacqui 12/02/2021. Patient cc: abdominal bloating, acid reflex, sensation of shocking with pill, constipation on and off. Patient is concern about her rectum. Channel Cementer Required: No Accompanied by: Family/Other Allergies penicillin G Allergy (Intermediate, Verified 08/15/24 08:30) rash aspirin Adverse Reaction (Intermediate, Verified 08/15/24 08:30) Contraindicated due to Cerebral vascular maformat Codeine Sulfate Allergy (Intermediate, Uncoded 08/15/24 08:30) rash Ibuprofen Allergy (Intermediate, Uncoded 08/15/24 08:30) hives Medication List - Last Reconciled 10/04/24 by Jessica Merino CNP acetaminophen 500 mg PO Q6H PRN atorvastatin 10 mg PO BEDTIME 90 days calcium carbonate-vitamin D3 500 mg-10 mcg (400 unit) 1 tab PO DAILY cetirizine 10 mg PO DAILY PRN cholecalciferol (vitamin D3) 25 mcg PO DAILY clobetasol 0.05% 1 appl topical BID docusate sodium (Colace) 100 mg PO BID PRN famotidine 20 mg PO DAILY levothyroxine 75 mcg PO DAILY linaclotide (Linzess) Take 1 (one) tablet daily for 2 (two) weeks and if no response, increase to 2 (two) tablets daily for 2 (two) weeks melatonin 3 mg PO BEDTIME PRN methylcellulose (laxative) (Citrucel) 500 mg PO BID polyethylene glycol 3350 17 grams PO DAILY simethicone (Gas Relief (simethicone)) 160 mg (2 x 80 mg) PO BID-TID 30 days HPI HPI Constipation/angelina pt [facility] 12/02/2021.: Details: Patient is a 84-year-old female with PMH of hypothyroidism, hyperlipidemia, GERD, Tethered spinal cord and essential tremor.. Last visit with SAUL Hardy 12/02/2021 for IBS. Pt is here today for follow up on constipation. Patient is accompanied by a nurse from the [facility]. She reports ongoing constipation and bowel issues, exacerbated over the past eight weeks. The patient has a history of IBS with constipation and a tethered spinal cord, which affects bowel and bladder nerve function. Since May, she has experienced a reduced sensation to defecate, leading to severe constipation requiring manual stool removal and occasional fecal incontinence. Various laxatives, including citrucell, Miralax, Colace and Bisacodyl suppositories, have been tried, with recent prescription of lactulose 30 mL twice daily. She has since decreased lactulose frequency to once daily following loose stools. She is now taking latculose as needed and discontinued the miralax and bisocodyl. Despite these treatments, the patient continues to struggle with bowel management, experiencing occasional non-painful abdominal discomfort and infrequent acid reflux. There is no associated nausea or vomiting. Recently, the patient has weaned off gabapentin, which was started in April for essential tremor. Patient denies: fever/chills, n/v, appetite changes, regurgitation, dysphasia, unintentional wt loss or melena/hematochezia. 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 Living Situation: Not specified. Lifestyle: - Tobacco Use: Non-smoker. - Alcohol Use: Wine once a week. - Drug Use: Denies recreational drug use. - Exercise: Walks approximately 1.75 miles daily. - Diet: High fiber diet, avoids high fructose corn syrup, lactate products for lactose intolerance. -family hx as below -personal hx of CA as below [facility] Medical History (Updated 10/04/24 @ 16:53 by Jessica Merino CNP) Skin cancer of arm Skin cancer, basal cell Tethered cord REM behavioral disorder Writers' cramp Cervical dystonia Urge urinary incontinence Pure hypercholesterolemia Chronic constipation Jaw pain Right hand pain Familial tremor GERD (gastroesophageal reflux disease) Voice hoarseness Hypothyroidism Surgical History History of colonoscopy S/P TC-BSO H/O inguinal hernia repair Hx of tonsillectomy Family History Mother IBS (irritable bowel syndrome) Skin cancer Dementia Father Heart disease Social History Household Members Other:: Rehab Housing: Apartment Alcohol intake: current Alcohol intake frequency: a few times a month Alcohol type: wine Patient Tobacco Use Status: Never used Tobacco e-Cigarette/Vaping Use: Never Used Second Hand Smoke Exposure: No service: No Current occupational status: retired Cognitive needs: No Hearing needs: No Vision needs: Yes Review of Systems Const Reports as per HPI ENT Reports as per HPI Card Reports as per HPI Resp Reports as per HPI GI Reports as per HPI Reports as per HPI Physical Exam Vital Signs: Last Vital Signs Pulse 62 10/04/24 14:47 BP 125/51 L 10/04/24 14:47 Oxygen Delivery Method Room Air 10/04/24 14:47 BMI result Body Mass Index 20.3 Const General: healthy appearing, no acute distress and well developed Nutritional Appearance: well nourished Orientation/consciousness: patient oriented x3 HEENT Head: Yes normal to inspection, Yes normocephalic and Yes atraumatic Face and sinus: Yes normal facial exam Eyes General: appearance normal, both eyes and all related structures Neck Neck: Yes normal visual inspection Resp Effort & Inspection: normal respiratory effort, able to speak in complete sentences, no tracheal deviation and symmetric chest movement Auscultation: clear to auscultation bilaterally Cardio Jugular venous distension: no JVD Rate: regular rate Rhythm: regular rhythm Heart sounds: S1 normal heart sound present, S2 normal heart sound present, no gallops and no murmurs GI Inspection: Yes normal to inspection, No distended and Yes other (mild bloating ) Palpation (GI): Soft to palpation, not firm, Tenderness to palpation present (GI) in the LLQ and in the RLQ and No hepatosplenomegaly present Auscultation: normal bowel sounds Neuro General: patient oriented x3 Gait exam (Neuro): Normal gait present Motor exam (neuro): Tremors during motor activity present (Baseline essential tremor noted) Psych Appearance: grossly normal Mental Status: mental status grossly normal Speech and movement: Normal speech and movement present Affect: normal affect Attitude: cooperative Thought process: Normal thought process present Thought content: Normal thought content present Insight: Good insight present (Psych) Judgement: Good judgement present (Psych) Results Reviewed Results Reviewed: Ordering Physician: Lizbeth Ruano MD Date of Service: 08/26/24 Procedure(s): MR lumbar spine wo con Accession Number(s): [id number] cc: Lizbeth Ruano MD~ CLINICAL HISTORY: Q06.8 - Other specified congenital malformations of spinal cord MR lumbar spine without gadolinium Comparison: None Findings: Normal alignment. No acute fracture or pathologic bone lesion. Cauda equina and conus medullaris within normal limits. L3-L4: Moderate diffuse annular bulge with associated central annular tear deforms the dural sac. This is eccentric to the right narrowing the right lateral recess. There is also facet hypertrophy and ligamentum flavum hypertrophy at this level and mild central spinal stenosis. There is bilateral foraminal narrowing. L4-L5: Small to moderate annular bulge deforms the dural sac. There is also a small central annular tear. There is facet hypertrophy and ligamentum flavum hypertrophy as well as bilateral neural foraminal narrowing Paraspinous musculature intact. T12-L1: No significant annular bulge or focal herniation. Neural foramina are patent. L1-L2: No significant annular bulge or focal disc herniation. Neural foramina are patent. There is mild facet hypertrophy. L2-L3: No significant annular bulge or focal herniation. The neural foramina are patent. L5-S1: No significant annular bulge or focal disc herniation. The neural foramina are patent. 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 Annular bulge with central annular tear. IMPRESSION: 1. Moderate diffuse annular bulge at L3-4 eccentric to the right narrowing the right lateral recess. There is bilateral neural foraminal narrowing at this level. There is mild central spinal stenosis here. 2. Qvuw-bm-mxsguoac diffuse annular bulge L4-L5 deforms the dural sac and is associated with a small central annular tear. There is mild bilateral neural foraminal narrowing. 3. Large sacral Tarlov cyst. (age 79) 07/27/2019 colonoscopy COLONOSCOPY PROCEDURE NOTE Pre-Op dx: IBS Change in bowel habits Fecal incontinence. Post-Op dx: Colon polyps, (Diverticulosis) Procedure Description: Colonoscopy till cecum with biopsies Surgeon(s): SARABJIT DAVIS Consent: Indications for the procedure and potential complications of bleeding, perforation, reaction to medications and missed diagnosis were discussed with the patient and informed consent was obtained. Instrument: Olympus PCF H 180AL variable stiffness pediatric colonoscope Monitoring: Vital signs and clinical assessment, intermittent blood pressure monitoring, continuous EKG monitoring, Pulse oximetry and Carbon Dioxide monitoring were done throughout the procedure. Colon withdrawl time was 20 minutes. Procedure: The patient was placed in the left lateral decubitis position and pre-procedure medications were administered. After a digital rectal examination of the ano-rectum, the video colonoscope was inserted into the rectum and advanced through the colon to the cecum. The colonoscope was slowly withdrawn in a retrograde panoramic fashion and the colon mucosa was carefully examined including a retroflexed view of the rectum. Findings and interventions are described below. Procedure Difficulty: Without difficulty Findings: Terminal Ileum ? Not evaluated Cecum ? A 3-4 mm sessile polyp removed with a cold biopsy Ascending Colon ? Normal Transverse Colon - Normal Descending Colon ? Moderate diverticulosis Sigmoid Colon ? Sever diverticulosis Rectum ? Normal Ano-rectum - Lax anal sphincter with no tone Colon preparation: Excellent Impression and Post Procedure Diagnosis: Colonoscopy Findings: One tiny polyp removed. Random biopsies were obtained from the colon to check for microscopic colitis Moderate to severe diverticulosis seen in the left colon Plan: Await pathology results Patient has an appointment on 08/10/19 in the GI Clinic with SAUL Zhang. Repeat Colonoscopy interval based on path results ? in 5 years if polyps are adenomatous and 10 years if polyps are hyperplastic. Pathology A. Cecal polyp, polypectomy: Colonic mucosa with mild surface hyperplastic changes. B. Random colon biopsies, rule out microscopic colitis: Colonic mucosa within normal limits. Comments: Diagnostic features of microscopic colitis are not seen. Postop diagnosis: Colon polyp, diverticulosis, rule out microscopic colitis Assessment & Plan Assessment & Plan (1) IBS (irritable bowel syndrome): Code(s): K58.9 - Irritable bowel syndrome, unspecified Category: Medical Qualifiers: Irritable bowel syndrome type: with constipation Qualified Code(s): K58.1 - Irritable bowel syndrome with constipation Plan: provisional diagnosis of Irritable Bowel Syndrome (IBS) with constipation. Exacerbation in symptoms could be secondary to side effects of various laxatives, dietary fiber adjustments and/or tethered spinal cord impact. Plan is trial linaclotide titrate up regimen. She will take 72 mcg daily for 2 weeks and if no response will increase to 144mcg (two tablets) daily for two weeks. She understands to discontinue the lactulose. She can continue Colace as needed and Citrucel daily. Encouraged to continue lifestyle modifications. 1700 10/06/2023: Spoke with Heidi this evening about our plan to add on barium enema to r/o any inflammation, polyps (growths), diverticula, obstructions and/or structural changes. She is agreeable and has the medication on hand for the prep. She has not received the linzess due to pharmacy back order and will call to let us know once started to coordinate around imaging. (2) GERD (gastroesophageal reflux disease): Code(s): K21.9 - Gastro-esophageal reflux disease without esophagitis Category: Medical Qualifiers: Esophagitis presence: esophagitis presence not specified Qualified Code(s): K21.9 - Gastro-esophageal reflux disease without esophagitis Plan: infrequent symptoms. Managed well with famotidine as needed. (3) Hypothyroidism: Code(s): E03.9 - Hypothyroidism, unspecified Category: Medical Qualifiers: Hypothyroidism type: unspecified Qualified Code(s): E03.9 - Hypothyroidism, unspecified Plan: Well-controlled with levothyroxine. (4) Tethered cord: Code(s): Q06.8 - Other specified congenital malformations of spinal cord Category: Medical Plan: She is established with Neurosurgery and declined surgical management. Continue plan issue by their office. Plan Follow-up in 4 weeks or sooner as needed. Time: I spent a total of 60 minutes on the date of encounter which includes: Preparing to see the patient (reviewed previous documentation, test results and medical history) Performing a medically appropriate exam and/or evaluation Ordering medications, tests, and procedures Documenting clinical information in the health record Orders: Orders Complete Blood Count no Diff Today K58.1 - Irritable bowel syndrome with constipation Medications: New linaclotide (Linzess) Take 1 (one) tablet daily for 2 (two) weeks and if no response, increase to 2 (two) tablets daily for 2 (two) weeks 42 caps 0RF Refilled linaclotide (Linzess) Take 1 (one) tablet daily for 2 (two) weeks and if no response start new prescription 30 caps 0RF Discontinued lactulose Discontinued Reason: No Longer Medically Relevant 20 grams (30 mL) PO BID 30 days PRN 1,800 mL 3RF constipation Coding Level of Care Code New Pt New Pt Level 5 (97653) Patient Type New Diagnoses Irritable bowel syndrome with constipation K58.1 Irritable bowel syndrome type: with constipation Gastroesophageal reflux disease, unspecified whether esophagitis present K21.9 Esophagitis presence: esophagitis presence not specified Hypothyroidism, unspecified type E03.9 Hypothyroidism type: unspecified Tethered cord Q06.8
[2024-10-04 14:47] VITALS: BP 125/51; PULSE 62; BMI 20.3
--- OUTSIDE RECORDS SUMMARY | 2024-10-04 15:50 | XMS_ITS | Patient Health Record ---
[facility] Organization [facility] Address [address] [place] [address] Care Team Providers Care Student Support Services Director Name Role Phone Craig HAZEL, Lizbeth Primary Care Provider Unavail able Álvaro Montgomery Unavailable [phone] Allergies Allergen (clinical drug ingredient) Drug/Non Drug [...] W/U Status Risk Notes Problem Atherosclerosis of [place] arteries of the extremities ([id number]) Atherosclerosis of [place] artery of both lower extremities, with unspecified presence of clinical manifestation (I70.203) Active confirmed Vital Signs Blood pressure diastolic 65 mm Hg 05/04/2024 Height 5 ft 3 in in 05/04/2024 Blood pressure systolic 120 mm Hg 05/04/2024 Weight 113 lbs 05/04/2024 BMI 20.01 kg/m2 05/04/2024 Procedures Procedure Date Ordered Date Performed Result Body Sit e 22904-SOEVTVR NAIL, 6 OR MORE 12/23/2023 N/A 62531-ZSQB SKIN LESIONS, 2 TO 4 12/23/2023 N/A 48945-DVXPPXL NAIL, 6 OR MORE 05/04/2024 N/A 66220-ANCG SKIN LESIONS, OVER 4 05/04/2024 N/A Encounters Encounter Location Date Provider Diagnosis [facility] [address] 12/23/2023 Álvaro Montgomery Atherosclerosis of [place] artery of both lower extremities, with unspecified presence of clinical manifestation I70.203 ; Tinea unguium B35.1 ; Pain in right toe(s) M79.674 and Pain in left toe(s) M79.675 [facility] [address] [place] [address] 05/04/2024 Álvaro Montgomery Atherosclerosis of [place] artery of both lower extremities, with unspecified presence of clinical manifestation I70.203 ; Tinea unguium B35.1 ; Pain in right toe(s) M79.674 and Pain in left toe(s) M79.675 [facility] [place] [address] [place] [address] 08/24/2024 Álvaro Montgomery Assessments Encounter Date Diagnosis (ICD Code) Assessment Notes Treatment Notes Treatment Clinical Notes Section Notes 12/23/2023 Tinea unguium (ICD-10 - B35.1) 12/23/2023 Atherosclerosis of [place] artery of both lower extremities, with unspecified presence of clinical manifestation (ICD-10 - I70.203) 05/04/2024 Tinea unguium (ICD-10 - B35.1) 05/04/2024 Atherosclerosis of [place] artery of both lower extremities, with unspecified presence of clinical manifestation (ICD-10 - I70.203) 05/04/2024 Pain in right toe(s) (ICD-10 - M79.674) 12/23/2023 Pain in right toe(s) (ICD-10 - M79.674) 12/23/2023 Pain in left toe(s) (ICD-10 - M79.675) 05/04/2024 Pain in left toe(s) (ICD-10 - M79.675) Plan Of Treatment Pending Test Test Name Order Date 07025-MEWAMNG NAIL, 6 OR MORE 01/25/2020 59416-WCNZIIP NAIL, 6 OR MORE 04/15/2020 78016-BNAQBEW NAIL, 6 OR MORE 09/12/2020 05948-KQQCSIV NAIL, 6 OR MORE 03/06/2021 98338-WBGPVFK NAIL, 6 OR MORE 07/10/2021 64626-FOGNUVG NAIL, 6 OR MORE 11/06/2021 73212-RAOCOEL NAIL, 6 OR MORE 03/26/2022 36202-YXESASW NAIL, 6 OR MORE 07/30/2022 02379-MDUTLVO NAIL, 6 OR MORE 12/03/2022 38887-JQQGRGX NAIL, 6 OR MORE 04/08/2023 14371-FKMLCGL NAIL, 6 OR MORE 08/19/2023 54283-CYVFUDR NAIL, 6 OR MORE 12/23/2023 27293-DNIRXBU NAIL, 6 OR MORE 05/04/2024 47210-VMOT SKIN LESIONS, OVER 4 05/04/20 24 53907-BMVC SKIN LESIONS, 2 TO 4 12/23/19 24 31100-QXUS SKIN LESIONS, 2 TO 4 08/19/19 24 90606-ENPA SKIN LESIONS, 2 TO 4 04/08/20 23 62107-CCNF SKIN LESIONS, 2 TO 4 12/04/19 23 44493-HPBK SKIN LESIONS, 2 TO 4 07/31/19 23 78438-LDCV SKIN LESIONS, 2 TO 4 03/26/20 22 Next Appt Details Provider Name:Álvaro Montgomery , 11/09/2024 03:30:00 PM, [address], [address], [place], [address], Insurance Providers Payer Name Payer Address Payer Phone Subscriber Number Group Number Insured Name Patient Relationship to Insured Coverage Start Date Coverage End Date Medicare National Govt Sv[employer] [address] [place] [address] [id number] Marly Page Self - patient is the insured [employer] Blue [employer] [address] [place] [address] [id number] Marly Page Self - patient is the insured EBPA [address] [place] [address] [id number] Marly Page Self - patient is the [...] surgery, leg 10/29/22 Hospitalization History Reason Date(Month/Year) [place], accute sciatica 12/2020 [facility] Xray Lower leg & ankle right, Ultra sound lower right extremity 01/22/20
--- OUTSIDE RECORDS SUMMARY | 2024-10-04 15:50 | XMS_ITS ---
Author Organization [facility] Address [address] [place] [address] Care Team Providers Care Commercial Construction Superintendent Name Role Phone Craig HAZEL, Lizbeth Primary Care Provider Unavail able Álvaro Montgomery Unavailable [phone] REASON FOR VISIT rs appt 08/31/24 Encounters Encounter Location Date Provider [facility] [place] [address] [place] [address] 08/24/2024 Álvaro Montgomery Plan Of Treatment Next Appt Details Provider Name:Álvaro Montgomery , 11/09/2024 03:30:00 PM, [address] [facility] [place] [address], [place], [address], Progress Notes * Marly ORTIZ DDOB:[birth year] (84 yo F)Acc No.[id number]:08/24/2024 Patient:?Marly ORTIZ :1940???Age:84 Y???Sex:Female Address:[address] [place] [address] [address], [place], [address] * true * Date:? Generated for Printi ng/Faxing/eTransmitting on:?10/04/2024 03:50 PM EDT
--- OUTSIDE RECORDS SUMMARY | 2024-10-04 15:50 | XMS_ITS ---
Author Organization [facility] Address [address] [place] [address] Care Team Providers Care Metal Roofing Mechanic Name Role Phone Craig HAZEL, Lizbeth Primary Care Provider Unavail able Álvaro Montgomery Unavailable [phone] Allergies Allergen (clinical drug ingredient) Drug/Non Drug [...] Ordered Date Performed Result Body Sit e 35184-TUXCIXU NAIL, 6 OR MORE 05/04/2024 N/A 87920-HGTI SKIN LESIONS, OVER 4 05/04/2024 N/A Encounters Encounter Location Date Provider Diagnosis [facility] [place] [address] [place] [address] 05/04/2024 Álvaro Montgomery Atherosclerosis of [place] artery of both lower extremities, with unspecified presence of clinical manifestation I70.203 ; Tinea unguium B35.1 ; Pain in right toe(s) M79.674 and Pain in left toe(s) M79.675 Assessments Encounter Date Diagnosis (ICD Code) Assessment Notes Treatment Notes Treatment Clinical Notes Section Notes 05/04/2024 Atherosclerosis of [place] artery of both lower extremities, with unspecified presence of clinical manifestation (ICD-10 - I70.203) 05/04/2024 Tinea unguium (ICD-10 - B35.1) 05/04/2024 Pain in right toe(s) (ICD-10 - M79.674) 05/04/2024 Pain in left toe(s) (ICD-10 - M79.675) Plan Of Treatment Pending Test Test Name Order Date 47877-AQYUYBD NAIL, 6 OR MORE 05/04/2024 63479-PCDD SKIN LESIONS, OVER 4 05/04/20 24 Next Appt Details Follow Up: prn, Reason: Provider Name:Álvaro Montgomery , 11/09/2024 03:30:00 PM, [address], , [address], Procedure Notes * Category Sub-Category Detail Notes [...] use of a nail nipper and/or dremel-type machine grinder, to a more viable healthy nail [...] to maintain effectiveness in symptomatic relief - 08340 Keratoma Treatment Parring or Cutting o f Benign Hyperkeratotic Lesion(s) (-57) More than 4 Lesions - The Benign hyperkeratotic lesions, ( 7) in total, locations as stated and described in exam, were pared, and/or cut utilizing a sterile 15 blade, tissue nippers, and/or power dremel instrumentation - 94060, Q8 Progress Notes * Marly ORTIZ DDOB:[birth year] (84 yo F)Acc No.[id number]:05/04/2024 Progress Note Patient:?Marly ORTIZ Provider:?Álvaro Montgomery DPM :1940???Age:84 Y???Sex:Female D ate:05/04/2024 Address:[address] [place] [address], [id number] Pcp:Lizbeth Srinivasan MD Subjective: * Chief Complaints: [...] 194herniated disk repair 1948hysterectomy 1987fatty tumor removal [facility] 10/29/22 * Hospitalization/Major Diagno stic Procedure:?[facility] Xray Lower leg & ankle right, [...] Assessment: 1.?Tinea unguium - B35.1???2 .?Atherosclerosis of [place] artery of both lower extremities, with unspecified presence of clinical manifestation - I70.203 (Primary)???3.?Pain in right toe(s) - M79.674???4.?Pain in left toe(s) - M79.675??? Plan: * Treatment: 2.?Tinea unguium?Procedure: 46848-PPFKJYM NAIL, 6 OR MORE * Procedures:?Debride Nail [...] use of a nail nipper and/or dremel-type machine grinder, to a more viable healthy nail [...] to maintain effectiveness in symptomatic relief - 97987.?Keratoma Treatment:?Parring or Cutting of Benign Hyperkeratotic Lesion(s)?(-57) More than 4 Lesions - The Benign hyperkeratotic lesions, ( 7) in total, locations as stated and described in exam, were pared, and/or cut utilizing a sterile 15 blade, tissue nippers, and/or power dremel instrumentation - 07632, Q8.? * Procedure Codes:?06188 DEBRI DE NAIL, 6 OR MORE, Modifiers: XS 59388 TRIM SKIN LESIONS, OVER 4, Modifiers: XS , Q8 * Follow Up:?prn * Images: * Sign off status: Completed true * Provider:?Álvaro Montgomery DPM Date:?2023 Generated for Jennifer christian/Asmita/eTziitting on:?10/04/2024 03:49 PM EDT History and Physical Notes * HPI [...]
--- OUTSIDE RECORDS SUMMARY | 2024-10-04 15:50 | XMS_ITS ---
Author Organization [facility] Address [address] [place] [address] Care Team Providers Care Front Office Java Developer Name Role Phone Craig HAZEL, Lizbeth Primary Care Provider Unavail Álvaro Castro Unavailable [phone] Encounters Encounter Location Date Provider Diagnosis [address] [id number] 08/31/2024 Álvaro Montgomery Plan Of Treatment Next Appt Details Provider Name:Álvaro Montgomery , 11/09/2024 03:30:00 PM, [address] [place] [address], [phone], Progress Notes * Marly ORTIZ DDOB:[birth year] (84 yo F)Acc No.[id number]:08/31/2024 Progress Note Patient:?Marly ORTIZ Provider:?Álvaro Montgomery DPM :1940???Age:84 Y???Sex:Female D ate:08/31/2024 Address:[address] [place] [address] [address], [id number] Pcp:Lizbeth Srinivasan MD Subjective: * Chief Complaints: * ??? * Medical History:? Objective: * Vitals:? Assessment: Plan: * Treatment: * Images: * The named appointment provid er may or may not be the originator of this progress note, and it is not deemed complete until electronically signed by the appointment provider. Sign off status: Pending * Provider:Davina Montgomery DPM Date:?2024 Generated for Jennifer christian/Asmita/Amira on:?10/04/2024 03:49 PM EDT
== END 2024-10-04 16:20 | disposition home or self-care (01) ==
LOC: HO.HGI 14:45
PROVIDERS: PCP Internal Medicine; Visit Provider Nurse Practitioner Family
DX: K58.1 Irritable bowel syndrome with constipation (principal); K21.9 Gastro-esophageal reflux disease without esophagitis; E03.9 Hypothyroidism, unspecified; Q06.8 Other specified congenital malformations of spinal cord
CPT/HCPCS: 99204

== ENCOUNTER → 2024-10-04 14:44 | Outpatient (BNVA) | payer MEDICARE, SELFPAY | PROVIDERS: PCP Internal Medicine; Visit Provider Nurse Practitioner Family | DX: K58.1 Irritable bowel syndrome with constipation (principal); K21.9 Gastro-esophageal reflux disease without esophagitis; E03.9 Hypothyroidism, unspecified; Q06.9 Congenital malformation of spinal cord, unspecified | CPT/HCPCS: 99202 ==

== ENCOUNTER 2024-10-27 07:08 | Outpatient (REF) | payer MEDICARE, SELFPAY ==
[2024-10-27 08:15] LABS: Hematocrit 39.8 % (37.0-47.0); Hemoglobin 13.2 g/dl (12.0-16.0); Mean Corpuscular HGB Conc 33.2 g/dl (31.0-35.0); Mean Corpuscular Hemoglobin 30.5 pg (27.0-33.0); Mean Corpuscular Volume 91.9 fL (80.0-98.0); Mean Platelet Volume 10.4 fL (9.4-12.3); Platelet Count 201 X10*3/uL (160-400); Red Blood Count 4.33 X10*6/uL (4.20-5.50); Red Cell Distribution Width 12.5 % (11.0-16.0); White Blood Count 7.9 X10*3/uL (4.8-10.8)
== END 2024-10-27 07:09 | disposition home or self-care (01) ==
LOC: HO.LAB 07:08
PROVIDERS: PCP Internal Medicine; Visit Provider Nurse Practitioner Family
DX: K58.1 Irritable bowel syndrome with constipation (principal)
CPT/HCPCS: 36415; 85027

== ENCOUNTER 2024-11-01 10:02 | Outpatient (AMB) | payer MEDICARE, SELFPAY ==
--- NOTE | 2024-11-01 10:08 | MHC.OFFVIS ---
Vital Signs 11/01/24 10:09 Height 5 ft 2.5 in Weight 111 lb BMI 20.0 BP 112/51 L Blood Pressure Location Lt brachial Position Sitting Pulse 59 Pulse Oximetry (%) 100 Oxygen Delivery Method Room Air Intake Visit Reasons: 4w Intake Note: Patient follow up cor GERD and lab results. Patient cc: abdominal discomfort, GERD on and off, between diarrhea and constipation, and trouble with big pill swallowing. Photo Equipment Technician Required: No Accompanied by: Family/Other Allergies penicillin G Allergy (Intermediate, Verified 11/01/24 10:07) rash aspirin Adverse Reaction (Intermediate, Verified 11/01/24 10:07) Contraindicated due to Cerebral vascular maformat Codeine Sulfate Allergy (Intermediate, Uncoded 08/15/24 08:30) rash Ibuprofen Allergy (Intermediate, Uncoded 08/15/24 08:30) hives HPI HPI 4w: Details: Patient is a 84-year-old female with PMH of hypothyroidism, hyperlipidemia and GERD. She presents for follow up on Irritable Bowel Syndrome (IBS) with constipation.She is accompanied by a Amber nurse from the [facility]. We started linaclotide with plan to slowly titrate up during our last visit. She did reach out via the patient portal with reports of experiencing fecal incontinence. Therefore adjusted the linalotide frequency to 72 mcg every other day, which helped reduce incontinence. The incontinence possibly correlated with high-fat meal intake. From October 14 to October 29, she had a bowel movement every other day; however, she did not have a bowel movement on October 30 or October 31. She walked more, drank extra liquids, took MiraLAX, and added Colace, but the problem persisted. Last BM was on Wednesday, formed, soft, and large, but now the patient feels impacted as they can sense stool but cannot exert force to completely evacuate. No abdominal pain, n/v or melena/hematochezia reported. Patient is tolerating food and liquid well. 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 Writers' cramp Cervical dystonia Urge urinary incontinence Pure hypercholesterolemia Chronic constipation Jaw pain Right hand pain Familial tremor GERD (gastroesophageal reflux disease) Voice hoarseness Hypothyroidism Surgical History History of colonoscopy S/P TC-BSO H/O inguinal hernia repair Hx of tonsillectomy Family History Mother IBS (irritable bowel syndrome) Skin cancer Dementia Father Heart disease Social History Household Members Other:: Rehab Housing: Apartment Alcohol intake: current Alcohol intake frequency: a few times a month Alcohol type: wine Patient Tobacco Use Status: Never used Tobacco e-Cigarette/Vaping Use: Never Used Second Hand Smoke Exposure: No service: No Current occupational status: retired Cognitive needs: No Hearing needs: No Vision needs: Yes Review of Systems Const Reports as per HPI ENT Reports as per HPI Card Reports as per HPI Resp Reports as per HPI GI Reports as per HPI Reports as per HPI Physical Exam Vital Signs: Last Vital Signs Pulse 59 11/01/24 10:09 BP 112/51 L 11/01/24 10:09 Pulse Ox 100 11/01/24 10:09 Oxygen Delivery Method Room Air 11/01/24 10:09 BMI result Body Mass Index 20.0 Const General: healthy appearing, no acute distress and well developed Nutritional Appearance: well nourished Orientation/consciousness: patient oriented x3 HEENT Head: Yes normal to inspection, Yes normocephalic and Yes atraumatic Face and sinus: Yes normal facial exam Eyes General: appearance normal, both eyes and all related structures Neck Neck: Yes normal visual inspection Resp Effort & Inspection: normal respiratory effort, able to speak in complete sentences, no tracheal deviation and symmetric chest movement Auscultation: clear to auscultation bilaterally Cardio Jugular venous distension: no JVD Rate: regular rate Rhythm: regular rhythm Heart sounds: S1 normal heart sound present, S2 normal heart sound present, no gallops and no murmurs GI Inspection: Yes normal to inspection and No distended Palpation (GI): Soft to palpation, not firm, nontender and No hepatosplenomegaly present Auscultation: Hyperactive bowel sounds present Rectal Exam - Female: visual inspection normal, fecal impaction ( Palpable soft, formed stool in rectal vault. No evidence of hard impaction), No hemorrhoids, No mass and No tenderness Neuro General: patient oriented x3 Gait exam (Neuro): Normal gait present Psych Appearance: grossly normal Mental Status: mental status grossly normal Speech and movement: Normal speech and movement present Affect: normal affect Attitude: cooperative Thought process: Normal thought process present Thought content: Normal thought content present Insight: Good insight present (Psych) Judgement: Good judgement present (Psych) Assessment & Plan Assessment & Plan (1) IBS (irritable bowel syndrome): Code(s): K58.9 - Irritable bowel syndrome, unspecified Category: Medical Qualifiers: Irritable bowel syndrome type: with constipation Qualified Code(s): K58.1 - Irritable bowel syndrome with constipation Plan: Chronic constipation with recent incomplete evacuation, soft stool on DEAN, no hard impaction. - Additional Tests: pending barium enema, reached out to radiology department to secure sooner appt - Medications: - Return to Linzess 72 mcg oral daily. Hold dose if stool becomes loose/mushy or if diarrhea occurs; resume when stool consistency returns to baseline or if >48h without BM. - Glycerin suppositories: Use two [id number] if no response to single use. Supply on hand. Reinforced lifestyle modifications to promote regularity: -higher fiber diet, examples provided -adequate hydration with water -150 minutes of moderate intensity exercise per week, as tolerated -Continue stress management, dietary trigger avoidance Plan follow up after barium enema. Team to call with appt scheduling Time: I spent a total of 40 minutes on the date of encounter which includes: Preparing to see the patient (reviewed previous documentation, test results and medical history) Performing a medically appropriate exam and/or evaluation Ordering medications, tests, and procedures Documenting clinical information in the health record Coding Level of Care Code Established Pt Est Pt Level 3 (06246) Patient Type Established Diagnoses Irritable bowel syndrome with constipation K58.1 Irritable bowel syndrome type: with constipation
[2024-11-01 10:09] VITALS: BP 112/51; PULSE 59; O2SAT 100
--- OUTSIDE RECORDS SUMMARY | 2024-11-01 10:39 | XMS_ITS ---
Author Organization [facility] Address [address] [place] [address] Care Team Providers Care Sld Teacher Name Role Phone Craig HAZEL, Lizbeth Primary Care Provider Unavail Álvaro Castro Unavailable [phone] Encounters Encounter Location Date Provider Diagnosis [address] [phone] 08/31/2024 Álvaro Montgomery Plan Of Treatment Next Appt Details Provider Name:Álvaro Montgomery , 11/09/2024 03:30:00 PM, [address] [place] [address], [phone], Progress Notes * Marly ORTIZ DDOB:[birth year] (84 yo F)Acc No.[id number]:08/31/2024 Progress Note Patient:?Marly ORTIZ Provider:?Álvaro Montgomery DPM :1940???Age:84 Y???Sex:Female D ate:08/31/2024 Address:[address] [place] [address] [address], [phone] Pcp:Lizbeth Srinivasan MD Subjective: * Chief Complaints: [...] Montgomery DPM Date:?2024 Generated for Jennifer christian/Asmita/Amira on:?11/01/2024 10:38 AM EDT
== END 2024-11-01 11:05 | disposition home or self-care (01) ==
LOC: HO.HGI 10:03
PROVIDERS: PCP Internal Medicine; Visit Provider Nurse Practitioner Family
DX: K58.1 Irritable bowel syndrome with constipation (principal)
CPT/HCPCS: 99213

== ENCOUNTER → 2024-11-01 10:02 | Outpatient (BNVA) | payer MEDICARE, SELFPAY | PROVIDERS: PCP Internal Medicine; Visit Provider Nurse Practitioner Family | DX: K58.1 Irritable bowel syndrome with constipation (principal) | CPT/HCPCS: 99212 ==

== ENCOUNTER 2024-11-21 10:13 | Outpatient (REF) | payer MEDICARE, SELFPAY ==
--- OUTSIDE RECORDS SUMMARY | 2024-08-31 04:45 | XMS_ITS ---
Author Organization [facility] Address [address] [place] [address] Care Team Providers Care Mat Gauger Name Role Phone Craig HAZEL, Lizbeth Primary Care Provider Unavail Álvaro Castro Unavailable [phone] Encounters Encounter Location Date Provider Diagnosis [address] [address] 08/31/2024 Álvaro Montgomery Plan Of Treatment Next Appt Details Provider Name:Álvaro Montgomery , 03/14/2025 11:00:00 AM, [address] [place] [address], [phone], Progress Notes * Marly ORTIZ DDOB:[birth year] (84 yo F)Acc No.[id number]:08/31/2024 Progress Note Patient: Heather NEGRETE Marly Bai Provider: Gustavo Montgomery DPM :1940 A ge:84 Y S ex:Female Date:08/31/2024 Address:[address] [place] [address] [address], [place] [id number] Pcp:Lizbeth Srinivasan MD Subjective: * Chief Complaints: [...] 0 08/31/2024 Generated for Jennifer Maier on: 11/21/2024 11:18 AM EDT
--- NOTE | ~2024-11-21 | FL_ITS ---
EXAMINATION: XR BARIUM ENEMA CLINICAL INFORMATION: Paravertebral bowel syndrome with constant constipation. COMPARISON: None available. TECHNIQUE: Oxidation Operator radiograph of the abdomen and pelvis was obtained. Single contrast barium enema was attempted using standard barium. Rectal tube was placed satisfactorily, and barium contrast was instilled into the rectum under gravity control. Multiple fluoroscopic spot images and cine runs were obtained. Post void overhead radiograph was also obtained. FINDINGS: Oxidation Operator view demonstrates a normal/nonspecific bowel gas pattern. No focally dilated loop. Mild gaseous distention of the colon is present. The patient was unable to voluntarily retain the barium via the rectum, despite balloon insufflation and gentle traction applied to the tube, the majority of the barium spilled onto the fluoroscopy table. Only the rectum and distal sigmoid were able to be imaged. The sigmoid is very redundant and tortuous, and there is diverticulosis present. Cannot exclude a sigmoid stricture given the appearance although this is not definitive. Because the patient was unable to retain the barium, further colonic imaging was not possible. The study was discontinued. FLUOROSCOPY TIME: 2 minutes, 27 seconds DOSE AREA PRODUCT: 2459 uGy-m2 (microgray-meter squared) FL/FL barium enema IMPRESSION: Limited examination as the patient was unable to retain barium via the rectum. Only the rectum and distal sigmoid were imaged. The rectum has a normal appearance. The distal sigmoid is redundant, with diverticulosis. Cannot exclude a sigmoid stricture as barium did not pass into the more proximal sigmoid colon. Recommend correlation with colonoscopy. Electronically signed by: Arpit Cho MD 11/21/2024 12:08 PM EDT
== END 2024-11-21 10:14 | disposition home or self-care (01) ==
LOC: HO.XRAY 10:13
PROVIDERS: PCP Internal Medicine; Visit Provider Nurse Practitioner Family
DX: K58.1 Irritable bowel syndrome with constipation (principal)
CPT/HCPCS: 74270

== ENCOUNTER → 2024-11-21 10:15 | Outpatient (BNV) | payer MEDICARE, SELFPAY | PROVIDERS: PCP Internal Medicine; Visit Provider Radiology Diagnostic Radiology | DX: K57.30 Diverticulosis of large intestine without perforation or abscess without bleeding (principal) | CPT/HCPCS: 74270 ==

== ENCOUNTER 2024-12-19 13:51 | Outpatient (AMB) | payer MEDICARE, SELFPAY ==
--- NOTE | 2024-12-19 13:53 | A.OFFVIS_ITS ---
Vital Signs 12/19/24 13:55 Height 5 ft 2.5 in Weight 111 lb 3.698 oz BMI 20.0 Blood Pressure Location Lt brachial Position Sitting Intake Visit Reasons: f/u barium enema Intake Note: Marly presents in the office as a follow up BA enema. CC: She states that she is still struggling with irregular bowel habits. Entry Level Account Representative Required: No Allergies penicillin G Allergy (Intermediate, Verified 12/19/24 13:56) rash aspirin Adverse Reaction (Intermediate, Verified 12/19/24 13:56) Contraindicated due to Cerebral vascular maformat Codeine Sulfate Allergy (Intermediate, Uncoded 12/19/24 13:56) rash Ibuprofen Allergy (Intermediate, Uncoded 12/19/24 13:56) hives Medication List - Last Reconciled 12/19/24 by Jessica Merino CNP acetaminophen 500 mg PO Q6H PRN atorvastatin 10 mg PO BEDTIME 90 days calcium carbonate-vitamin D3 500 mg-10 mcg (400 unit) 1 tab PO DAILY cetirizine 10 mg PO DAILY PRN cholecalciferol (vitamin D3) 25 mcg PO DAILY clobetasol 0.05% 1 appl topical BID docusate sodium (Colace) 100 mg PO BID PRN famotidine 10 mg PO DAILY PRN levothyroxine 75 mcg PO DAILY melatonin 3 mg PO BEDTIME PRN methylcellulose (laxative) (Citrucel) 500 mg PO BID polyethylene glycol 3350 17 grams PO DAILY PRN simethicone (Gas Relief (simethicone)) 160 mg PO BID-TID PRN HPI HPI f/u barium enema: Details: Patient is a 84-year-old female with PMH of hypothyroidism, hyperlipidemia and GERD. She is accompanied by a Amber nurse from the [facility]. The patient reports ongoing bowel irregularities for several weeks, with symptoms worsening since a barium enema four weeks ago, which was poorly tolerated and non- informative. The patient describes a cyclical pattern: near-complete evacuation at the start of each week, followed by prolonged difficulty in reinitiating bowel movements. Multiple regimens have been trialed, including Citrucel, Colace, and lactulose, with diminishing effectiveness. Miralax and suppositories have provided only partial relief. Episodes of explosive diarrhea have occurred, particularly after high-fat or high-fructose meals, while periods of constipation are marked by narrow, small-caliber stools and occasional incontinence. The patient experiences increased anxiety with prolonged intervals between bowel movements, and reports bladder pressure and leakage correlating with constipation. Appetite is reduced, and there has been a mild, gradual nikolas ght loss. No significant nausea or vomiting is reported, though there is occasional mild queasiness. The patient notes some heartburn, often diet- related, and attempts to avoid late meals and trigger foods. No recent blood in stool. The patient is able to pass gas. 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 Writers' cramp Cervical dystonia Urge urinary incontinence Pure hypercholesterolemia Chronic constipation Jaw pain Right hand pain Familial tremor GERD (gastroesophageal reflux disease) Voice hoarseness Hypothyroidism Surgical History History of colonoscopy S/P TC-BSO H/O inguinal hernia repair Hx of tonsillectomy Family History Mother IBS (irritable bowel syndrome) Skin cancer Dementia Father Heart disease Social History Household Members Other:: Rehab Housing: Apartment Alcohol intake: current Alcohol intake frequency: a few times a month Alcohol type: wine Patient Tobacco Use Status: Never used Tobacco e-Cigarette/Vaping Use: Never Used Second Hand Smoke Exposure: No service: No Current occupational status: retired Cognitive needs: No Hearing needs: No Vision needs: Yes Review of Systems Const Reports as per HPI ENT Reports as per HPI Card Reports as per HPI Resp Reports as per HPI GI Reports as per HPI Reports as per HPI Physical Exam Vital Signs: BMI result Body Mass Index 20.0 Const General: healthy appearing, no acute distress and well developed Nutritional Appearance: average body habitus Orientation/consciousness: patient oriented x3 HEENT Head: Yes normal to inspection, Yes normocephalic and Yes atraumatic Face and sinus: Yes normal facial exam Eyes General: appearance normal, both eyes and all related structures Neck Neck: Yes normal visual inspection Resp Effort & Inspection: normal respiratory effort, able to speak in complete sentences, no tracheal deviation and symmetric chest movement Auscultation: clear to auscultation bilaterally Cardio Jugular venous distension: no JVD Rate: regular rate Rhythm: regular rhythm Heart sounds: S1 normal heart sound present, S2 normal heart sound present, no gallops and no murmurs GI Inspection: Yes normal to inspection and No distended Palpation (GI): Soft to palpation, not firm, nontender and No hepatosplenomegaly present Auscultation: normoactive bowel sounds Neuro General: patient oriented x3 Gait exam (Neuro): Normal gait present Psych Appearance: grossly normal Mental Status: mental status grossly normal Speech and movement: Normal speech and movement present Affect: normal affect Attitude: cooperative Thought process: Normal thought process present Thought content: Normal thought content present Insight: Good insight present (Psych) Judgement: Good judgement present (Psych) Results Reviewed Results Reviewed: Date of Service: 11/21/24 Procedure(s): FL barium enema Accession Number(s): [id number] cc: Lizbeth Ruano MD; Jessica Merino CNP~ EXAMINATION: XR BARIUM ENEMA CLINICAL INFORMATION: Paravertebral bowel syndrome with constant constipation. COMPARISON: None available. TECHNIQUE: Aeronautical Test Engineer radiograph of the abdomen and pelvis was obtained. Single contrast barium enema was attempted using standard barium. Rectal tube was placed satisfactorily, and barium contrast was instilled into the rectum under gravity control. Multiple fluoroscopic spot images and cine runs were obtained. Post void overhead radiograph was also obtained. FINDINGS: Aeronautical Test Engineer view demonstrates a normal/nonspecific bowel gas pattern. No focally dilated loop. Mild gaseous distention of the colon is present. The patient was unable to voluntarily retain the barium via the rectum, despite balloon insufflation and gentle traction applied to the tube, the majority of the barium spilled onto the fluoroscopy table. Only the rectum and distal sigmoid were able to be imaged. The sigmoid is very redundant and tortuous, and there is diverticulosis present. Cannot exclude a sigmoid stricture given the appearance although this is not definitive. Because the patient was unable to retain the barium, further colonic imaging was not possible. The study was discontinued. FLUOROSCOPY TIME: 2 minutes, 27 seconds DOSE AREA PRODUCT: 2459 uGy-m2 (microgray-meter squared) FL/FL barium enema IMPRESSION: Limited examination as the patient was unable to retain barium via the rectum. Only the rectum and distal sigmoid were imaged. The rectum has a normal appearance. The distal sigmoid is redundant, with diverticulosis. Cannot exclude a sigmoid stricture as barium did not pass into the more proximal sigmoid colon. Recommend correlation with colonoscopy. Assessment & Plan Assessment & Plan (1) IBS (irritable bowel syndrome): Code(s): K58.9 - Irritable bowel syndrome, unspecified Category: Medical Qualifiers: Irritable bowel syndrome type: with constipation Qualified Code(s): K58.1 - Irritable bowel syndrome with constipation Plan: Persistent symptoms despite multiple laxative regimens; unpredictable response to prior therapies; significant impact on quality of life and anxiety; need to balance efficacy with avoidance of diarrhea and incontinence. Known Tethered Cord Syndrome suggestive for possible neurogenic component to bowel dysfunction; surgical intervention not currently planned. Additional Testing: -Colonoscopy scheduled for December 28, 2024, to assess for structural or mucosal causes of symptoms. -Referral to pelvic floor biofeedback therapy placed; patient on waiting list. Medications: -Restart Linzess 145 mcg PO QD, but titrate to every other day or half-dose as tolerated, based on stool pattern and patient preference. -Continue Citrucel for bulking; Colace PRN for softening; reserve Miralax and lactulose for breakthrough constipation or impaction risk. Lifestyle Changes:Continue dietary modifications to avoid high-fat and high- fructose foods; maintain adequate hydration; consider homemade protein drinks if further weight loss occurs. Plan Follow-up after colonoscopy as scheduled for 01/10/25 or sooner as needed Time: I spent a total of 40 minutes on the date of encounter which includes: Preparing to see the patient (reviewed previous documentation, test results and medical history) Performing a medically appropriate exam and/or evaluation Ordering medications, tests, and procedures Documenting clinical information in the health record Medications: New linaclotide (Linzess) Take 1 (one) tablet daily as directed 30 caps 1RF Jessica Merino CNP Changed From simethicone (Gas Relief (simethicone)) 160 mg (2 x 80 mg) PO BID-TID 30 days 180 tabs 5RF abdominal distention To simethicone (Gas Relief (simethicone)) 160 mg PO BID-TID PRN abdominal distention Angelina Juarez PA-C Refilled melatonin 3 mg PO BEDTIME PRN 30 caps 6RF sleep Jessica Merino CNP Coding Level of Care Code Established Pt Est Pt Level 5 (96989) Patient Type Established Diagnoses Irritable bowel syndrome with constipation K58.1 Irritable bowel syndrome type: with constipation
== END 2024-12-19 14:45 | disposition home or self-care (01) ==
LOC: HO.HGI 13:51
PROVIDERS: PCP Internal Medicine; Visit Provider Nurse Practitioner Family
DX: K58.1 Irritable bowel syndrome with constipation (principal)
CPT/HCPCS: 99215

== ENCOUNTER → 2024-12-19 13:51 | Outpatient (BNVA) | payer MEDICARE, SELFPAY | PROVIDERS: PCP Internal Medicine; Visit Provider Nurse Practitioner Family | DX: K58.1 Irritable bowel syndrome with constipation (principal) | CPT/HCPCS: 99212 ==

== ENCOUNTER 2024-12-28 07:54 | Day surgery (SDC) | payer MEDICARE, SELFPAY ==
--- NOTE | 2024-12-27 09:40 | HO.ANESPROP2 ---
HPI - Anesthesia Eval Consult details Narrative: 84yo F for Colonoscopy PMF Active Problems Active Problems: All Active Problems Tarlov cyst (Acute) Tethered cord (Acute) REM behavioral disorder (Acute) Writers' cramp (Acute) Cervical dystonia (Acute) Encounter for Medicare annual wellness exam (Acute) Voice tremor (Acute) Paresthesia and pain of both upper extremities (Acute) Cervical radiculopathy (Acute) Cold feet (Acute) Adult general medical exam (Acute) IBS (irritable bowel syndrome) (Acute) Urge urinary incontinence (Acute) Diastolic dysfunction (Acute) Pure hypercholesterolemia (Acute) PAC (premature atrial contraction) (Acute) Orthostatic hypotension (Acute) Abnormal EKG (Acute) Lightheadedness (Acute) Pre-operative clearance (Acute) Chronic constipation (Acute) Constipation (Acute) Jaw pain (Acute) Right hand pain (Acute) Familial tremor (Acute) GERD (gastroesophageal reflux disease) (Acute) Voice hoarseness (Acute) Hypothyroidism (Acute) Past Medical History Medical History Skin cancer of arm Skin cancer, basal cell Tethered cord REM behavioral disorder Writers' cramp Cervical dystonia Urge urinary incontinence Pure hypercholesterolemia Chronic constipation Jaw pain Right hand pain Familial tremor GERD (gastroesophageal reflux disease) Voice hoarseness Hypothyroidism Family History Family History Mother IBS (irritable bowel syndrome) Skin cancer Dementia Father Heart disease Surgical History Surgical History (Updated 01/08/25 @ 08:03 by Meli Kraus) History of colonoscopy S/P TC-BSO H/O inguinal hernia repair Hx of tonsillectomy Social History Social History Household Members Other:: Rehab Housing: Apartment Alcohol intake: current Alcohol intake frequency: a few times a month Alcohol type: wine Patient Tobacco Use Status: Never used Tobacco e-Cigarette/Vaping Use: Never Used Second Hand Smoke Exposure: No service: No Current occupational status: retired Cognitive needs: No Hearing needs: No Vision needs: Yes Meds Allergies Allergy/AdvReac Type Severity Reaction Status Date / Time penicillin G Allergy Intermediate rash Verified 12/19/24 13:56 aspirin AdvReac Intermediate Contraindicated Verified 12/19/24 13:56 due to Cerebral vascular maformat Codeine Sulfate Allergy Intermediate rash Uncoded 12/19/24 13:56 Ibuprofen Allergy Intermediate hives Uncoded 12/19/24 13:56 Home Medications ?Medication ?Instructions ?Recorded ?Confirmed ?Last Taken ?Type cholecalciferol (vitamin D3) 25 25 mcg PO DAILY 01/13/21 12/19/24 Unknown History mcg (1,000 unit) tablet calcium 500 mg (as 1 tab PO DAILY 06/26/21 12/19/24 Unknown History carbonate)-vitamin D3 10 mcg (400 unit) tablet clobetasol 0.05 % topical ointment 1 appl topical BID 02/16/24 12/19/24 Unknown History acetaminophen 500 mg capsule 500 mg PO Q6H PRN 10/04/24 12/19/24 Unknown History cetirizine 10 mg tablet 10 mg PO DAILY PRN 10/04/24 12/19/24 Unknown History docusate sodium 100 mg capsule 100 mg PO BID PRN 10/04/24 12/19/24 Unknown History (Colace) methylcellulose (laxative) 500 mg 500 mg PO BID 10/04/24 12/19/24 Unknown History tablet (Citrucel) famotidine 10 mg tablet 10 mg PO DAILY PRN 12/19/24 12/19/24 Unknown History polyethylene glycol 3350 17 17 g PO DAILY PRN 12/19/24 12/19/24 Unknown History gram/dose oral powder simethicone 80 mg chewable tablet 160 mg PO BID-TID PRN abdominal 12/19/24 12/19/24 Unknown History (Gas Relief (simethicone)) distention Exam Height,Weight and Vital Signs: Height 5 ft 2.5 in Weight 50.451 kg Assessment and Plan Assessment Anesthesia Assessment: Chart Reviewed
--- NOTE | 2024-12-28 08:19 | MHC.SHP ---
Pre-Procedural Eval Section A - 24 Hr Update-Section A only Date of Service: 12/28/24 Section B - Complete if H&P > 30 days Chief Complaint: change in bowel habits Details of Present Illness: Skin cancer of arm Skin cancer, basal cell Tethered cord REM behavioral disorder Writers' cramp Cervical dystonia Urge urinary incontinence Pure hypercholesterolemia Chronic constipation Jaw pain Right hand pain Familial tremor GERD (gastroesophageal reflux disease) Voice hoarseness Hypothyroidism Surgical History History of colonoscopy S/P TC-BSO H/O inguinal hernia repair Hx of tonsillectomy Present Medications: see Short Stay Collaborative assessment Allergies: Allergies Allergy/AdvReac Type Severity Reaction Status Date / Time penicillin G Allergy Intermediate rash Verified 12/19/24 13:56 aspirin AdvReac Intermediate Contraindicated Verified 12/19/24 13:56 due to Cerebral vascular maformat Codeine Sulfate Allergy Intermediate rash Uncoded 12/19/24 13:56 Ibuprofen Allergy Intermediate hives Uncoded 12/19/24 13:56 Review of Systems Review of Systems Comment: 10 point ROS negative Exam Surgical H&P Exam: Normal: HEENT, Normal: Heart, Normal: Lungs, Normal: Extremities, Normal: Abdomen, Normal: Skin and Normal: Neurological Plan Diagnosis/Plan: Unchanged I have reviewed the history and physical and performed a pertinent physical examination on my patient. No changes have occurred unless specified. Time Spent With Patient Time: Total time managing care of this patient today ____ minutes.
[2024-12-28] MEDS: Lactated Ringers 1,000 ML 100 ML IVCONT (08:26)
--- NOTE | 2024-12-28 08:57 | HO.ANESPROP2 ---
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) Cervical dystonia (Acute) Encounter for Medicare annual wellness exam (Acute) Voice tremor (Acute) Paresthesia and pain of both upper extremities (Acute) Cervical radiculopathy (Acute) Cold feet (Acute) Adult general medical exam (Acute) IBS (irritable bowel syndrome) (Acute) Urge urinary incontinence (Acute) Diastolic dysfunction (Acute) Pure hypercholesterolemia (Acute) PAC (premature atrial contraction) (Acute) Orthostatic hypotension (Acute) Abnormal EKG (Acute) Lightheadedness (Acute) Pre-operative clearance (Acute) Chronic constipation (Acute) Constipation (Acute) Jaw pain (Acute) Right hand pain (Acute) Familial tremor (Acute) GERD (gastroesophageal reflux disease) (Acute) Voice hoarseness (Acute) Hypothyroidism (Acute) Past Medical History Medical History Skin cancer of arm Skin cancer, basal cell Tethered cord REM behavioral disorder Writers' cramp Cervical dystonia Urge urinary incontinence Pure hypercholesterolemia Chronic constipation Jaw pain Right hand pain Familial tremor GERD (gastroesophageal reflux disease) Voice hoarseness Hypothyroidism Functional capacity: independent ambulation Patient : No Family History Family History Mother IBS (irritable bowel syndrome) Skin cancer Dementia Father Heart disease Family history of problems with anesthesia: No Surgical History Surgical History History of colonoscopy S/P TC-BSO H/O inguinal hernia repair Hx of tonsillectomy History of Problems with Anesthesia: No Social History Social History Household Members Other:: Rehab Housing: Apartment Alcohol intake: current Alcohol intake frequency: a few times a month Alcohol type: wine Patient Tobacco Use Status: Never used Tobacco e-Cigarette/Vaping Use: Never Used Second Hand Smoke Exposure: No Use of substances other than those prescribed or required for medical reasons: No Advance Directives: No Advance Directives Information Provided: Yes service: No Current occupational status: retired Cognitive needs: No Hearing needs: No Vision needs: Yes Meds Allergies Allergy/AdvReac Type Severity Reaction Status Date / Time penicillin G Allergy Intermediate rash Verified 12/19/24 13:56 aspirin AdvReac Intermediate Contraindicated Verified 12/19/24 13:56 due to Cerebral vascular maformat Codeine Sulfate Allergy Intermediate rash Uncoded 12/19/24 13:56 Ibuprofen Allergy Intermediate hives Uncoded 12/19/24 13:56 Active Medications: Current Medications Lactated Ringer's (Lr) 1,000 mls @ 100 mls/hr IVCONT .Q10H PIPPA Last Admin: 12/28/24 08:26 Dose: 100 mls/hr Home Medications ?Medication ?Instructions ?Recorded ?Confirmed ?Last Taken ?Type cholecalciferol (vitamin D3) 25 25 mcg PO DAILY 01/13/21 12/19/24 Unknown History mcg (1,000 unit) tablet calcium 500 mg (as 1 tab PO DAILY 06/26/21 12/19/24 Unknown History carbonate)-vitamin D3 10 mcg (400 unit) tablet clobetasol 0.05 % topical ointment 1 appl topical BID 02/16/24 12/19/24 Unknown History acetaminophen 500 mg capsule 500 mg PO Q6H PRN 10/04/24 12/19/24 Unknown History cetirizine 10 mg tablet 10 mg PO DAILY PRN 10/04/24 12/19/24 Unknown History docusate sodium 100 mg capsule 100 mg PO BID PRN 10/04/24 12/19/24 Unknown History (Colace) methylcellulose (laxative) 500 mg 500 mg PO BID 10/04/24 12/19/24 Unknown History tablet (Citrucel) famotidine 10 mg tablet 10 mg PO DAILY PRN 12/19/24 12/19/24 Unknown History polyethylene glycol 3350 17 17 g PO DAILY PRN 12/19/24 12/19/24 Unknown History gram/dose oral powder simethicone 80 mg chewable tablet 160 mg PO BID-TID PRN abdominal 12/19/24 12/19/24 Unknown History (Gas Relief (simethicone)) distention Exam Height,Weight and Vital Signs: Height 5 ft 2.5 in Weight 50.451 kg Airway Mallampati Class: II TM Dist: >3cm Neck ROM: Full Heart: RRR Lungs: CTAi Assessment and Plan Assessment Anesthesia Assessment: Anesthesia Plan Discussed and Chart Reviewed Final Anesthetic Review Family History of Problems with Anesthesia: No History of Problems with Anesthesia: No NPO: Yes ASA Class: III Final Preanesthetic Review: Meds/Allgs Chart Reviewed, Consent Obtained/Reviewed and Anes Risks/Benef Reviewed Patient Risk: Intermediate Procedure Risk: Low Anesthetic Plan Anesthetic Plan: MAC: Disposition: Standard PACU
[2024-12-28 09:56] VITALS: BP 104/49; PULSE 59; RESP 16; TEMP 36.1; O2SAT 98
--- NOTE | 2024-12-28 10:02 | P.OPN-COLO_ITS ---
Colonoscopy Operative Note Operative Note Date of Service: 12/28/24 Narrative: Procedure: Colonoscopy Indication: Change in bowel habits Endoscopist: Lindsey Meléndez MD Anesthesia Provider: Dr Sherlyn Carroll Anesthesia type: MAC Instrument: Olympus [id number]-H190L Consent: Indication, risks vs benefits, and alternatives were discussed with the patient who gave written informed consent to proceed. EKG, pulse, pulse oximetry and blood pressure were monitored throughout the procedure. Please see anesthesia flowsheet. Procedure: The patient was brought to the procedure room and placed in the left lateral decubitus position. IV medications were administered by the anesthesia provider in attendance. A digital rectal exam was performed which was normal. A distal attachment cap was affixed to the tip of the colonoscope which was then inserted through the anus and advanced through the colon to the cecum at 75 cm,and terminal ileum. Appendiceal orifice and ileocecal valve were identified. Mucosa was carefully examined under high definition white light as the instrument was slowly withdrawn in a retrograde panoramic fashion. Retroflexion was performed in rectum. The procedure was not difficult. There were no immediate obvious complications. The quality of the prep was BBPS: 3+2+3 = adequate Withdrawal time 9 minutes. Limitations: No limitations. Findings: Mucosa: Normal to cecum and terminal ileum. Protruding lesions: * Medium internal hemorrhoids without stigmata of recent bleeding. Excavated lesions: * Moderate to severe diverticulosis of left sided colon. Impression: 1. Normal colon mucosa 2. Diverticulosis 3. Internal hemorrhoids Recommendations: - Management of constipation with fiber intake, hydration and combination of osmotic + stimulant laxative (miralax + senna) - Consider switching to a different secretagogue if suboptimal response with linaclotide. - Future colonoscopy for asymptomatic CRC screening not recommended due to age.
[2024-12-28 10:10] VITALS: BP 155/64; PULSE 60; RESP 16; O2SAT 98
[2024-12-28 10:25] VITALS: BP 140/63; PULSE 64; RESP 16; O2SAT 100
--- NOTE | 2024-12-28 11:18 | HO.POSTANES ---
Post Anesthesia Evaluation Post Anesthesia Evaluation Date of Service: 12/28/24 Vital Signs: Vital Signs Temp Pulse Resp BP Pulse Ox O2 Del Method 12/28/24 10:25 64 16 140/63 H 100 Room Air 12/28/24 10:10 60 16 155/64 H 98 Room Air 12/28/24 09:56 97 F 59 16 104/49 L 98 Room Air Anesthesia: Monitored Mental Status: Awake Pain Control: Satisfactory Nausea/Vomiting: None Hydration: Adequate Anesthesia-Related Issues: No Anes. Related Issues
== END 2024-12-28 10:45 | disposition home or self-care (01) ==
PROVIDERS: PCP Internal Medicine; Visit Provider Internal Medicine
PROC: 0DJD8ZZ Inspection of Lower Intestinal Tract, Via Natural or Artificial Opening Endoscopic (ICD-10-PCS; CPT 45378; principal; 2024-12-28 09:40)
DX: R19.4 Change in bowel habit (principal); K58.1 Irritable bowel syndrome with constipation; K57.30 Diverticulosis of large intestine without perforation or abscess without bleeding; K64.8 Other hemorrhoids; Z85.828 Personal history of other malignant neoplasm of skin; E78.00 Pure hypercholesterolemia, unspecified; G25.0 Essential tremor; R49.0 Dysphonia; G24.3 Spasmodic torticollis; K21.9 Gastro-esophageal reflux disease without esophagitis; E03.9 Hypothyroidism, unspecified; Z79.899 Other long term (current) drug therapy; Z88.5 Allergy status to narcotic agent; Z88.6 Allergy status to analgesic agent; Z98.890 Other specified postprocedural states
CPT/HCPCS: 45378; J2003; J2704

== ENCOUNTER → 2024-12-28 07:54 | Outpatient (BNV) | payer MEDICARE, SELFPAY | PROVIDERS: PCP Internal Medicine; Visit Provider Internal Medicine | DX: R19.4 Change in bowel habit (principal) | CPT/HCPCS: 45378 ==

== ENCOUNTER 2025-01-10 09:01 | Outpatient (AMB) | payer MEDICARE, SELFPAY ==
--- OUTSIDE RECORDS SUMMARY | 2024-08-31 04:45 | XMS_ITS ---
Author Organization [facility] Address [address] [place] [address] Care Team Providers Care Guide Travel Name Role Phone Craig HAZEL, Lizbeth Primary Care Provider Unavail Álvaro Castro Unavailable [phone] Encounters Encounter Location Date Provider Diagnosis [address] [address] 08/31/2024 Álvaro Montgomery Plan Of Treatment Next Appt Details Provider Name:Álvaro Montgomery , 03/14/2025 11:00:00 AM, [address] [place] [address], [phone], Progress Notes * Marly ORTIZ DDOB:[birth year] (84 yo F)Acc No.[id number]:08/31/2024 Progress Note Patient: Heather NEGRETE Marly Bai Provider: Gustavo Montgomery DPM :1940 A ge:84 Y S ex:Female Date:08/31/2024 Address:[address] [place] [address] [address], [place] [phone] Pcp:Lizbeth Srinivasan MD Subjective: * Chief Complaints: [...] 08/31/2024 Generated for Jennifer Maier on: 0 01/10/2025 09:23 AM EDT
--- NOTE | 2025-01-10 09:05 | A.OFFVIS_ITS ---
Vital Signs 01/10/25 09:08 Height 5 ft 2.5 in Weight 109 lb BMI 19.6 BP 125/60 Blood Pressure Location Lt brachial Position Sitting Pulse 65 Pulse Oximetry (%) 100 Oxygen Delivery Method Room Air Intake Visit Reasons: s/p colo Medhat Intake Note: Patient follow up for IBS and Colonoscopy results. Patient cc: abdominal bloating, GERD in the afternoon, rarelly swallowing difficulties on and off, and BM are much better. Denies any other GI issues. Land Manager Required: No Accompanied by: Family/Other Allergies penicillin G Allergy (Intermediate, Verified 01/10/25 09:05) rash aspirin Adverse Reaction (Intermediate, Verified 01/10/25 09:05) Contraindicated due to Cerebral vascular maformat Codeine Sulfate Allergy (Intermediate, Uncoded 12/19/24 13:56) rash Ibuprofen Allergy (Intermediate, Uncoded 12/19/24 13:56) hives HPI HPI s/p colo Medhat: Details: Patient is a 84-year-old female with PMH of hypothyroidism, hyperlipidemia and GERD. She is accompanied by nurse Amber from the [facility] [place]. Since the colonoscopy (12/28/24), the patient initially experienced a delay of four days before bowel movements resumed. The patient reports using Miralax at that time and has since used Linzess (half capsule) every other day, with subsequent bowel movements occurring approximately every other day, described as soft and primarily formed. She has reduced Citrucel to one tablet daily and takes 1-2 Colace depending on her symptoms. She notes improvement in her overall bowel regularity, less obsession with bowel care, and a feeling of freedom following substantial movements. The patient reports some weight loss (109 lbs at this visit, previously 111 lbs at the time of the colonoscopy), with home weighing showing a downward trend to 107 lbs. She attributes the weight change to dietary modifications aimed at reducing constipation, specifically reducing quantities of high-fat items, such as peanut butter. 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 No recent urgent care visits, flares, or hospitalizations. Labs for thyroid, liver, kidney function, and anemia were all recently normal. Shares pelvic floor therapy is scheduled for 01/25/25 [facility] Medical History (Updated 01/10/25 @ 11:09 by Jessica Merino CNP) Weight loss Skin cancer of arm Skin cancer, basal cell Tethered cord REM behavioral disorder Writers' cramp Cervical dystonia Urge urinary incontinence Pure hypercholesterolemia Chronic constipation Jaw pain Right hand pain Familial tremor GERD (gastroesophageal reflux disease) Voice hoarseness Hypothyroidism Surgical History History of colonoscopy S/P TC-BSO H/O inguinal hernia repair Hx of tonsillectomy Family History Mother IBS (irritable bowel syndrome) Skin cancer Dementia Father Heart disease Social History Household Members Other:: Rehab Housing: Apartment Alcohol intake: current Alcohol intake frequency: a few times a month Alcohol type: wine Patient Tobacco Use Status: Never used Tobacco e-Cigarette/Vaping Use: Never Used Second Hand Smoke Exposure: No service: No Current occupational status: retired Cognitive needs: No Hearing needs: No Vision needs: Yes Review of Systems Const Reports as per HPI ENT Reports as per HPI Card Reports as per HPI Resp Reports as per HPI GI Reports as per HPI Reports as per HPI Physical Exam Vital Signs: Last Vital Signs Pulse 65 01/10/25 09:08 BP 125/60 01/10/25 09:08 Pulse Ox 100 01/10/25 09:08 Oxygen Delivery Method Room Air 01/10/25 09:08 BMI result Body Mass Index 19.6 Const General: healthy appearing, no acute distress and well developed Nutritional Appearance: average body habitus Orientation/consciousness: patient oriented x3 HEENT Head: Yes normal to inspection, Yes normocephalic and Yes atraumatic Face and sinus: Yes normal facial exam Eyes General: appearance normal, both eyes and all related structures Neck Neck: Yes normal visual inspection Resp Effort & Inspection: normal respiratory effort, able to speak in complete sentences, no tracheal deviation and symmetric chest movement Cardio Jugular venous distension: no JVD Neuro General: patient oriented x3 Gait exam (Neuro): Normal gait present Psych Appearance: grossly normal Mental Status: mental status grossly normal Speech and movement: Normal speech and movement present Affect: normal affect Attitude: cooperative Thought process: Normal thought process present Thought content: Normal thought content present Insight: Good insight present (Psych) Judgement: Good judgement present (Psych) Assessment & Plan Assessment & Plan (1) IBS (irritable bowel syndrome): Comment: 12/28/24 Colonoscopy complete with adequate prep-Normal colon mucosa, Diverticulosis, Internal hemorrhoids Code(s): K58.9 - Irritable bowel syndrome, unspecified Category: Medical Qualifiers: Irritable bowel syndrome type: with constipation Qualified Code(s): K58.1 - Irritable bowel syndrome with constipation Plan: IBS-C. Symptoms improving with current regimen (half-capsule Linzess QOD, 1 tablet Citrucel, 1-2 tablets Colace daily). Patient experiencing softer, formed stools with this titration, avoiding prior bouts of impaction. Bloating/growling persists, socially limiting. Pelvic floor therapy consult scheduled. Reassured with recent colonoscopy. Additional Testing: None needed at this time. Medications: Continue Linzess (0.145 mg, 1/2 capsule every other day), Miralax PRN, Citrucel 1 tablet daily, and Colace 1-2 tablets daily, adjusted to symp toms. Lifestyle Recommendations: Reinforce moderation in fiber and hydration. Advised titration of dietary fat to manage constipation while maintaining caloric intake to mitigate weight loss. Referrals / Coordination of Care: Attend pelvic floor PT consult (Nicol, 01-25-25); discuss ongoing therapy after initial eval. (2) Weight loss: Code(s): R63.4 - Abnormal weight loss Category: Medical Plan: Weight fluctuation noted over recent months, with sustained reduction from 113 to 107-109 lbs. Weight change attributed to recent dietary modifications. Labs reassuring for no underlying pathologies. Additional Testing: Weekly weight tracking to calculate averages and monitor trends. Lifestyle Recommendations: Incorporate healthy fats (e.g., avocado, olive oil, peanut butter in moderation) to maintain caloric intake while avoiding foods that may worsen constipation. Referrals / Coordination of Care: Defer further evaluation to PCP if sustained loss exceeds 5% baseline over 6 months. Follow-Up Plan: Monitor weight trend closely, recheck in 3 months. Plan Follow-up 3 months or sooner as needed Time: I spent a total of 30 minutes on the date of encounter which includes: Preparing to see the patient (reviewed previous documentation, test results and medical history) Performing a medically appropriate exam and/or evaluation Ordering medications, tests, and procedures Documenting clinical information in the health record Coding Level of Care Code Established Pt Est Pt Level 4 (86783) Patient Type Established Diagnoses Irritable bowel syndrome with constipation K58.1 Irritable bowel syndrome type: with constipation Weight loss R63.4
[2025-01-10 09:08] VITALS: BP 125/60; PULSE 65; O2SAT 100; BMI 19.6
== END 2025-01-10 09:52 | disposition home or self-care (01) ==
LOC: HO.HGI 09:02
PROVIDERS: PCP Internal Medicine; Visit Provider Nurse Practitioner Family
DX: K58.1 Irritable bowel syndrome with constipation (principal); R63.4 Abnormal weight loss
CPT/HCPCS: 99214

== ENCOUNTER → 2025-01-10 09:01 | Outpatient (BNVA) | payer MEDICARE, SELFPAY | PROVIDERS: PCP Internal Medicine; Visit Provider Nurse Practitioner Family | DX: K58.1 Irritable bowel syndrome with constipation (principal); R63.4 Abnormal weight loss | CPT/HCPCS: 99212 ==

== ENCOUNTER 2025-02-21 09:18 | Outpatient (AMB) | payer MEDICARE, SELFPAY ==
--- OUTSIDE RECORDS SUMMARY | 2024-08-31 04:45 | XMS_ITS ---
Author Organization [facility] Address [address] [place] [address] Care Team Providers Care Stator Winder Name Role Phone Craig HAZEL, Lizbeth Primary Care Provider Unavail Álvaro Castro Unavailable [phone] Encounters Encounter Location Date Provider Diagnosis [address] [address] 08/31/2024 Álvaro Montgomery Plan Of Treatment Next Appt Details Provider Name:Álvaro Montgomery , 03/14/2025 11:00:00 AM, [address] [place] [address], [phone], Progress Notes * Marly ORTIZ DDOB:[birth year] (84 yo F)Acc No.[id number]:08/31/2024 Progress Note Patient: Heather NEGRETE Marly Bai Provider: Gustavo Montgomery DPM :1940 A ge:84 Y S ex:Female Date:08/31/2024 Address:[address] [place] [address] [address], [id number] Pcp:Lizbeth Srinivasan MD Subjective: * Chief Complaints: [...] 0 08/31/2024 Generated for Jennifer Maier on: 0 02/21/2025 10:56 AM EDT
--- NOTE | 2025-02-21 09:31 | A.OFFVIS_ITS ---
Intake Vital Signs 02/21/25 09:33 Height 5 ft 2.5 in Weight 114 lb 6 oz BMI 20.6 BP 120/72 Blood Pressure Location Lt brachial Position Sitting Pulse 60 Pulse Source Pulse Oximeter Temp 96.4 F L Temp Source Temporal Artery Scan Pulse Oximetry (%) 95 Oxygen Delivery Method Room Air Intake Visit Reasons: RUCHI [id number] Intake Note: Patient is here for an Annual Wellness Visit. Transfer Controller Required: No Dowel Inserting Machine Operator: Dowel Inserting Machine Operator offered & declined Accompanied by: Self / Same As Patient Allergies penicillin G Allergy (Intermediate, Verified 02/21/25 10:04) rash aspirin Adverse Reaction (Intermediate, Verified 02/21/25 10:04) Contraindicated due to Cerebral vascular maformat Codeine Sulfate Allergy (Intermediate, Uncoded 02/21/25 10:04) rash Ibuprofen Allergy (Intermediate, Uncoded 02/21/25 10:04) hives Medication List - Last Reconciled 02/21/25 by Libzeth Alvarenga MD acetaminophen 500 mg PO Q6H PRN atorvastatin 10 mg PO BEDTIME 90 days calcium carbonate-vitamin D3 500 mg-10 mcg (400 unit) 1 tab PO DAILY cetirizine 10 mg PO DAILY PRN cholecalciferol (vitamin D3) 25 mcg PO DAILY clobetasol 0.05% 1 appl topical BID docusate sodium (Colace) 100 mg PO BID PRN famotidine 10 mg PO DAILY PRN levothyroxine 75 mcg PO DAILY linaclotide (Linzess) Take 1 (one) tablet daily as directed methylcellulose (laxative) (Citrucel) 500 mg PO BID polyethylene glycol 3350 17 grams PO DAILY PRN simethicone (Gas Relief (simethicone)) 160 mg PO BID-TID PRN HPI HPI Comments History of Present Illness Details Ppp handed to patient. [place] of care reviewed and updated. The patient is an 84-year-old female presenting with a Medicare wellness exam. She has a history of osteopenia, identified in a bone DEXA scan conducted in 2023, with the next scan scheduled for 2025. The patient reports bladder incontinence, which has worsened over the past year and is associated with a tethered cord. She has been referred for pelvic floor physical therapy and has attended three sessions, noting some improvement. Bowel incontinence is generally related to overcorrection for chronic constipation or irritable bowel syndrome with constipation (IBSC). The patient continues to manage this condition with dietary adjustments and medication as needed. The patient experiences sciatica, which has progressively weakened despite regular exercise and physical therapy. She maintains a routine of walking and physical therapy exercises to manage symptoms. The patient describes intermittent hip pain, possibly related to arthritis, which occurs unexpectedly during walking. She has a brace for her foot due to weak tendons, which she finds beneficial when worn. [facility] Medical History Weight loss Skin cancer of arm Skin cancer, basal cell Tethered cord REM behavioral disorder Writers' cramp Cervical dystonia Urge urinary incontinence Pure hypercholesterolemia Chronic constipation Jaw pain Right hand pain Familial tremor GERD (gastroesophageal reflux disease) Voice hoarseness Hypothyroidism Surgical History History of colonoscopy S/P TC-BSO H/O inguinal hernia repair Hx of tonsillectomy Family History Mother IBS (irritable bowel syndrome) Skin cancer Dementia Father Heart disease Social History Household Members Other:: Rehab Housing: Apartment Alcohol intake: current Alcohol intake frequency: a few times a month Alcohol type: wine Patient Tobacco Use Status: Never used Tobacco e-Cigarette/Vaping Use: Never Used Second Hand Smoke Exposure: No service: No Current occupational status: retired Cognitive needs: No Hearing needs: No Vision needs: Yes Questionnaire Medicare Wellness Checkup What is your age?: 80 or older What gender do you identify with?: female During the past 4 weeks, how much have you been bothered by emotional problems such as feeling anxious, depressed, irritable, sad or downhearted, and blue?: slightly During the past 4 weeks, has your physical & emotional health limited your social activities with family, friends, neighbors, or groups?: not at all During the past 4 weeks, how much bodily pain have you generally had?: mild pain During the past 4 weeks, was someone available to help you if you needed & wanted help?: yes, as much as I wanted During the past 4 weeks, what was the hardest physical activity you could do for at least 2 minutes?: heavy Can you get to places out of walking distance without help? (For eg., can you travel alone on buses, taxis or drive your car?): Yes Can you go shopping for groceries or clothes without someone's help?: Yes Can you prepare your own meals?: Yes Can you do your housework without help?: Yes Because of any health problems, do you need the help of another person with your personal care needs such as eating, bathing, dressing or getting around the house?: No Can you handle your own money without help?: Yes During the past 4 weeks, how would you rate your health in general?: very good During the past 4 weeks how have things been going for you?: pretty well Are you having difficulties driving your car?: no Do you always fasten your seat belt when you are in a car?: yes, usually During past 4 weeks, have you been bothered by the following: never: Sexual problems?, Trouble eating well?, Teeth or denture problems? and Problems using the telephone?, sometimes: Tiredness or fatigue? and often: Falling or dizzy when standing up Have you fallen 2 or more times in the past year?: No Are you afraid of falling?: Yes Are you a smoker?: no During the past 4 weeks, how many drinks of wine, beer, or other alcoholic beverages did you have?: 1 drink or less per week Do you exercise for about 20 minutes 3 or more times a week?: yes, all the time Have you been given information to help with the following?: yes: Hazards in your house that might hurt you? and no: Keeping track of your medications? How often do you have trouble taking medicines the way you have been told to take them?: I always take medicine as prescribed How confident are you that you can control & manage most of your health problems?: somewhat confident What is your race?: White Mini Mental State Exam (MMSE) Orientation What is the (year) (season) (date) (day) (month)?: year, season, date, day and month Where are we (state) (county) (town or city) (hospital) (floor)?: state, county, town or city, hospital/clinic and floor Registration Name of 3 unrelated objects clearly and slowly, then ask patient to repeat all 3 of them. (1st repeat determines score. Make sure they can repeat all three): object 1, object 2 and object 3 Attention & Calculation (CHOOSE ONE) Spell WORLD backwards (DLROW): 5 letters Recall Ask patient to repeat the 3 items from question #3.: object 1, object 2 and object 3 Language Show patient a wristwatch & ask what it is. Repeat for pencil.: watch and pencil Ask the patient to repeat the phrase 'No ifs, ands, or buts' after you.: correct Ask the patient to 'take a piece of paper with their right hand' 'fold paper in half' 'place paper on floor': take paper in right hand, fold paper in half and place paper on floor Print the sentence 'CLOSE YOUR EYES' on a piece. If patient actually closes eyes then score.: followed written direction Give patient a blank piece of paper & ask to write a sentence. Score if it contains a noun & verb.: sentence contains subject and verb Ask patient to copy figure of intersecting pentagons exactly. Score if all 10 angles & 2 intersects are included.: all 10 angles present & 2 are intersected Score Score: 30 Activity of Daily Living Bathing - sponge bath, tub bath or shower: receives no assistance (gets in/out by self, if usual bathing means Dressing - getting clothes from closets & drawers, including inner/outer garments & fasteners.: gets clothes & gets completely dressed without help Toileting - going to the 'toilet room' for urine/bowel elimination & cleaning self/arranging clothes: goes to toilet room, cleans self, arranges clothes without help Transfer: moves in & out of bed and chair without help (may use support object) Continence: has occasional 'accidents' Feeding: feeds self without help Total Score: 0 Information obtained from: patient Using telephone: independent Traveling: independent Shopping: independent Preparing meals: independent Housework: independent Taking medicine: independent Managing money: independent PHQ-9 Over the last 2 weeks, how often have you been bothered by any of the following problems? 1. Little interest or pleasure in doing things: not at all 2. Feeling down, depressed, or hopeless: not at all 3. Trouble falling or staying asleep, or sleeping too much: not at all 4. Feeling tired or having little energy: not at all 5. Poor appetite or overeating: not at all 6. Feeling bad about yourself - or that you are a failure or have let yourself or your family down: not at all 7. Trouble concentrating on things, such as reading the newspaper or watching television: not at all 8. Moving or speaking so slowly that other people could have noticed. Or the opposite - being so fidgety or restless that you have been moving around a lot more than usual: not at all 9. Thoughts that you would be better off or of hurting yourself in some way: not at all Total score: 0 Depression Screening Interpretation: Negative Depression Screening Done: Yes 85525 - PHQ-9 Billing: Yes Source: Developed by Drs. Diaz Wylie, Bruna Calloway, Ross Sorto and colleagues, with an educational joanne from [employer]. Thrive Questionnaire Date Thrive assessed: 08/15/24 LEXUS-7 AMB Questionnaire LEXUS-7 Date LEXUS - 7 assessed: 08/15/24 Source: Developed by Drs. Diaz Wylie, Bruna Calloway, Ross Sorto and colleagues, with an educational joanne from [employer]. Review of Systems Const All systems reviewed & are unremarkable except as noted in HPI and below Card Denies chest pain at rest, Denies chest pain with activity, Denies edema, Denies irregular heart rhythm, Denies claudication, Denies dyspnea, Denies dyspnea on exertion, Denies orthopnea, Denies paroxysmal nocturnal dyspnea and Denies slow heart rate Resp Denies cough, Denies dyspnea and Denies dyspnea on exertion Neuro Denies confusion Psych Denies confusion Physical Exam Vital Signs: Last Vital Signs Temp 96.4 F L 02/21/25 09:33 Pulse 60 02/21/25 09:33 BP 120/72 02/21/25 09:33 Pulse Ox 95 02/21/25 09:33 Oxygen Delivery Method Room Air 02/21/25 09:33 BMI result Body Mass Index 20.6 Const General: No confusion Orientation/consciousness: patient oriented x3 and No confusion Resp Effort & Inspection: normal respiratory effort Auscultation: clear to auscultation bilaterally Cardio Jugular venous distension: no JVD Rate: regular rate Rhythm: regular rhythm Heart sounds: S1 normal heart sound present and S2 normal heart sound present Neuro General: patient oriented x3, no focal motor deficits and No confusion Romberg Test: Negative Extrem General: Yes full ROM Immunizations Tenivac (PF) 5 Lf unit-2 Lf unit/0.5 mL intramuscular syringe Performing Provider: Lizbeth Alvarenga MD Per[facility] Administered by: Christa Mcdonald LPN on 02/21/25 10:38 Dose Route Admin Location Dispensed Lot Number Expiration Date NDC Director Of Front Office 0.5 mL IM Left Deltoid 0.5 mL [id number] 09/27/26 58893-715-08 [employer] Total Dispensed Waste 0.5 mL 0 % VIS Given Date VIS Provided VIS Publication Date 02/21/25 Single Vaccine 21 Eligibility Eligibility Date Funding Source Not [facility] Eligible 02/21/25 Private Assessment & Plan Assessment & Plan (1) Encounter for Medicare annual wellness exam: Code(s): Z00.00 - Encounter for general adult medical examination without abnormal findings Plan Plan Patient was informed and verbally consented to the use of an ambient scribe for clinic note documentation during this visit. 1. Osteopenia The patient has osteopenia as identified in the 2023 bone DEXA scan. The next DEXA scan is scheduled for 2025 to monitor bone density changes. 2. Preventative Care: Tetanus Vaccine Due The patient is due for a tetanus vaccine this year, as the last one was administered in 2014. The vaccine can be administered during this visit. 3. Preventative Care: Pneumococcal Vaccine (Pcv20) Recommended The patient is recommended to receive the PCV20 pneumococcal vaccine. The administration of this vaccine can be considered during a future visit. 4. Bladder Incontinence The patient reports worsening bladder incontinence over the past year, associated with a tethered cord. She has been referred to pelvic floor physical therapy and has attended three sessions, noting some improvement. 5. Bowel Incontinence Related To Chronic Constipation The patient experiences bowel incontinence, generally related to overcorrection for chronic constipation or IBSC. Management includes dietary adjustments and medication as needed. 6. Sciatica The patient experiences sciatica, which has progressively weakened despite regular exercise and physical therapy. She continues to manage symptoms with a routine of walking and physical therapy exercises. 7. Hip Pain Possibly Related To Arthritis The patient describes intermittent hip pain, possibly related to arthritis, occurring unexpectedly during walking. She uses a brace for her foot due to weak tendons, which she finds beneficial when worn. Orders: Orders Lipid Panel Today E78.5 - Hyperlipidemia, unspecified Comprehensive [place]. Panel Fast Today E78.00 - Pure hypercholesterolemia, unspecified Thyroid Stimulating Hormone Today E03.9 - Hypothyroidism, unspecified Td Immunization Today Z23 - Encounter for immunization Quality Reporting (2019) Depression/Bipolar (159/160/161/177) PHQ-9: Total score: 0 Coding Level of Care Code Medicare Subsequent (G0439) Diagnoses Encounter for Medicare annual wellness exam Z00.00 CPT Codes Advance Care Planning - Time spent: 1-15 minutes, on File ([id number]) Additional Codes PHQ-9 - 92704 - PHQ-9 Billing: Yes ([id number]) Time Spent (min) 32 Advance Care Planning Advance Care Planning discussion: Exists, not on file Date of discussion: 02/21/25 Forms completed: Health Care Proxy Time spent: 1-15 minutes, on File Actual minutes spent: 2
[2025-02-21 09:33] VITALS: BP 120/72; PULSE 60; TEMP 35.8; O2SAT 95; BMI 20.6
--- OUTSIDE RECORDS SUMMARY | 2025-02-21 10:56 | XMS_ITS | Patient Health Record ---
[facility] Address [address] [place] [address] Care Team Providers Care Director Transportation Name Role Phone Craig HAZEL, Lizbeth Primary Care Provider Unavail able Álvaro Montgomery Unavailable [phone] Allergies Allergen (clinical drug ingredient) Drug/Non Drug [...] Duration) Notes Start Date End Date Status Vitamin D 1000 UNIT 1 tablet Orally Once a day 05/21/2016 Active Fluticasone Furoate Not-Taking ASO Ankle/Foot Stablizing AFO As directed Wear Daily; Duration: as needed 01/25/2020 Active Levothyroxine Sodium 75 MCG TAKE 1/2 TABLET ON WEDNESDAY,WEDNESDAY AND WEDNESDAY AND 1 TABLET OTHER DAYS Oral; Duration: 30 Active Famotidine 10 MG 1 tablet as needed Orally Twice a day PRN Not-Taking Linzess Active Gabapentin Not-Takin g Glucosamine Chondr Complex Not-Taking Vitamin C Not-Taking Atorvastatin Calcium Active Laxative Not-Taking Fluzone High-Dose 0.5 ML TO BE ADMINISTERED BY PHARMACIST FOR IMMUNIZATION Intramuscular; Duration: 1 Flu Shot Not-Taking Fluticasone Propionate Not-Taking Tylenol Active Metamucil Not-Taking Colace Active Omeprazole Not-Takin g Famotidine PRN Active Loratadine 10 MG 1 tablet Orally Once a day PRN 05/21/2016 Not-Taking Calcium + D Active Primidone 50 MG Oral; Duration: 90 Days Not-Taking Citrucel Active Cetirizine HCl PRN Not-T aking Immunizations Vaccine Route Administration Date Status Comme nts Influenza Unknown 02/29/2024 Administered COVID-19 Pfizer BioNTech Vaccine Unknown 07/07/2020 Adm inistered COVID-19 Pfizer BioNTech Vaccine Unknown 07/28/2020 Adm inistered COVID-19 Pfizer BioNTech Vaccine Unknown 02/29/2024 Adm inistered Social History Tobacco Use: Social History Observation Description Date Details (start date - stop date) Never Smoker NA - NA Tobacco Use/Smoking Question Answer Notes Are you a: nonsmoker Additional Findings: Tobacco Non-User Current no n-smoker Tobacco use other than smoking: Question Answer Notes Are you an other tobacco user? No AUDIT-C (Standard) Question Answer Notes Did you have a drink contain ing alcohol in the past year? Yes How often did you have a dri nk containing alcohol in the past year? Monthly or less (1 point) How many drinks did you have on a typical day when you were drinking in the past year? Declined to specify (0 point) How often did you have six o r more drinks on one occasion in the past year? Declined to specify (0 point) Points 1 Interpretation Negative Problems Problem Type SNOMED Code ICD Code Onset Dates Problem Status W/U Status Risk Notes Problem Bilateral atherosclerosis of arteries of lower limbs (disorder) ([id number] ) Atherosclerosis of sh[place]necock artery of both lower extremities, with unspecified presence of clinical manifestation (I70.203) Active confirmed Vital Signs Heart Rate 60 /min 11/09/2024 Blood pressure diastolic 60 mm Hg 11/09/2024 Height 5 ft 3 in in 11/09/2024 Blood pressure systolic 120 mm Hg 11/09/2024 Weight 111 lbs 11/09/2024 BMI 19.66 kg/m2 11/09/2024 Procedures Procedure Date Ordered Date Performed Result Body Sit e 65531-SDMJFPA NAIL, 6 OR MORE 05/04/2024 N/A 37654-WLPS SKIN LESIONS, OVER 4 05/04/2024 N/A 60373-QVUCOOW NAIL, 6 OR MORE 11/09/2024 N/A 81669-CMEK SKIN LESIONS, 2 TO 4 11/09/2024 N/A Encounters Encounter Location Date Provider Diagnosis [facility] [address] [place] [id number] 05/04/2024 Álvaro Montgomery Atherosclerosis of shinnecock artery of both lower extremities, with unspecified presence of clinical manifestation I70.203 ; Tinea unguium B35.1 ; Pain in right toe(s) M79.674 and Pain in left toe(s) M79.675 [facility] [address] [place] [id number] 11/09/2024 Álvaro Montgomery Atherosclerosis of shinnecock artery of both lower extremities, with unspecified presence of clinical manifestation I70.203 ; Tinea unguium B35.1 ; Pain in right toe(s) M79.674 and Pain in left toe(s) M79.675 [facility] [address] [place] [address] 08/24/2024 Álvaro Montgomery Assessments Encounter Date Diagnosis (ICD Code) Assessment Notes Treatment Notes Treatment Clinical Notes Section Notes 05/04/2024 Tinea unguium (ICD-10 - B35.1) 05/04/2024 Atherosclerosis of shinnecock artery of both lower extremities, with unspecified presence of clinical manifestation (ICD-10 - I70.203) 11/09/2024 Tinea unguium (ICD-10 - B35.1) 11/09/2024 Atherosclerosis of shinnecock artery of both lower extremities, with unspecified presence of clinical manifestation (ICD-10 - I70.203) 05/04/2024 Pain in right toe(s) (ICD-10 - M79.674) 11/09/2024 Pain in right toe(s) (ICD-10 - M79.674) 11/09/2024 Pain in left toe(s) (ICD-10 - M79.675) 05/04/2024 Pain in left toe(s) (ICD-10 - M79.675) Plan Of Treatment Pending Test Test Name Order Date 22705-QIXFYWG NAIL, 6 OR MORE 01/25/2020 41406-TJHQCNU NAIL, 6 OR MORE 04/15/2020 09626-GFUOBOQ NAIL, 6 OR MORE 09/12/2020 03594-CJBNJWO NAIL, 6 OR MORE 03/06/2021 57231-BDPNJZR NAIL, 6 OR MORE 07/10/2021 86251-LVHGIGH NAIL, 6 OR MORE 11/06/2021 66218-LJDTYWG NAIL, 6 OR MORE 03/26/2022 62845-IBOFYLC NAIL, 6 OR MORE 07/30/2022 78264-UAOKNMC NAIL, 6 OR MORE 12/03/2022 17901-MLRJNEK NAIL, 6 OR MORE 04/08/2023 76429-FOYXPOX NAIL, 6 OR MORE 08/19/2023 14086-ACSBWBX NAIL, 6 OR MORE 12/23/2023 07618-SWXGQQG NAIL, 6 OR MORE 05/04/2024 24731-EEJMQYI NAIL, 6 OR MORE 11/09/2024 97108-RGSM SKIN LESIONS, OVER 4 05/04/20 24 92936-IAVF SKIN LESIONS, 2 TO 4 12/23/19 24 76803-KILR SKIN LESIONS, 2 TO 4 08/19/19 24 17816-XFBR SKIN LESIONS, 2 TO 4 04/08/20 23 30872-QMKK SKIN LESIONS, 2 TO 4 12/04/19 23 17072-OZNP SKIN LESIONS, 2 TO 4 07/31/19 23 67910-CAFS SKIN LESIONS, 2 TO 4 03/26/20 22 46788-BLCV SKIN LESIONS, 2 TO 4 11/10/19 25 Next Appt Details Provider Name:Álvaro Montgomery , 03/14/2025 11:00:00 AM, [address] [place] [facility], [facility] [address], [place], [address], Insurance Providers Payer Name Payer Address Payer Phone Subscriber Number Group Number Insured Name Patient Relationship to Insured Coverage Start Date Coverage End Date Medicare [facility] [address] [place] [address] [phone] [id number] Marly Page Self - patient is the insured [employer] [address] [place] [address] [id number] Marly Page Self - patient is the insured [facility] [address] [place] [address] [phone] [id number] Marly Page Self - patient is the insured Medical (General) History Medical History History ICD Code Arthritis Broken bones Cholesterol Sciatica chronic sinusitis Stomach ulcer Thyroid disorder Measles Chicken pox Anxiety Back,Hip,and Knee pain CAD (Cholesterol) basal cell carcinoma Cataracts 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
== END 2025-02-21 10:35 | disposition home or self-care (01) ==
LOC: HO.HMCH 09:18
PROVIDERS: PCP Internal Medicine; Visit Provider Internal Medicine
DX: Z00.00 Encounter for general adult medical examination without abnormal findings (principal); Z23 Encounter for immunization

== ENCOUNTER → 2025-02-21 09:18 | Outpatient (BNVA) | payer MEDICARE, SELFPAY | PROVIDERS: PCP Internal Medicine; Visit Provider Internal Medicine | DX: Z00.00 Encounter for general adult medical examination without abnormal findings (principal); R32 Unspecified urinary incontinence; K58.1 Irritable bowel syndrome with constipation; M54.30 Sciatica, unspecified side; R15.9 Full incontinence of feces; E78.00 Pure hypercholesterolemia, unspecified; E03.9 Hypothyroidism, unspecified; Z23 Encounter for immunization | CPT/HCPCS: 90471; 90714; 96127 ==

== ENCOUNTER 2025-03-23 09:21 | Outpatient (REF) | payer MEDICARE, SELFPAY ==
--- OUTSIDE RECORDS SUMMARY | 2024-08-31 04:45 | XMS_ITS ---
Author Organization [facility] Address [address] [place] [address] Care Team Providers Care Fishing Gear Mechanic Name Role Phone Craig HAZEL, Lizbeth Primary Care Provider Unavail Álvaro Castro Unavailable [phone] Encounters Encounter Location Date Provider Diagnosis [address] [address] 08/31/2024 Álvaro Montgomery Plan Of Treatment Next Appt Details Provider Name:Álvaro Montgomery , 07/04/2025 10:00:00 AM, [address] [place] [address], [phone], Progress Notes * Marly ORTIZ DDOB:[birth year] (84 yo F)Acc No.[id number]:08/31/2024 Progress Note Patient: Heather NEGRETE Marly Bai Provider: Gustavo Montgomery DPM :1940 A ge:84 Y S ex:Female Date:08/31/2024 Address:[address] [place] [address] [address], [place] [phone] Pcp:Lizbeth Srinivasan MD Subjective: * Chief Complaints: [...] 0 08/31/2024 Generated for Jennifer Maier on: 10:12 AM EDT
--- NOTE | ~2025-03-23 | MM_ITS ---
EXAMINATION: MM SCREENING DIGITAL BREAST TOMOSYNTHESIS, BILATERAL CLINICAL INFORMATION: Screening. Asymptomatic. COMPARISON: Mammography: Comparison is made with available priors TECHNIQUE: Digital breast mammography with tomosynthesis is performed in both the craniocaudal and mediolateral oblique views along with computer-aided detection (CAD). FINDINGS: The breasts are heterogeneously dense, which may obscure small masses. There are no significant masses, abnormal calcifications, or other abnormalities. MM/MM tomosynthesis screening BI IMPRESSION: No mammographic evidence of malignancy. ASSESSMENT: BI-RADS Category 1: Negative RECOMMENDATION: Routine annual mammography screening. 1 year F/U This examination should not preclude the clinical evaluation of a suspicious palpable abnormality. This patient's information was entered into a reminder system with a target due date for their next mammogram. Electronically signed by: Edyta Vinson DO 03/26/2025 01:05 PM EDT
--- OUTSIDE RECORDS SUMMARY | 2025-03-23 10:12 | XMS_ITS | Patient Health Record ---
[facility] Address [address] [place] [address] Care Team Providers Care Learning And Development Administrator Name Role Phone Craig HAZEL, Lizbeth Primary Care Provider Unavail able Álvaro Montgomery Unavailable [phone] Allergies Allergen (clinical drug ingredient) Drug/Non Drug Allergy documented on EMR Reaction Allergy Type Onset Date Status Information temporarily unavailable Advil Unknown Drug Allergy Active Information temporarily unavailable Aleve Unknown Drug Allergy Active Information temporarily unavailable Aspirin Unknown Drug Allergy Active Information temporarily unavailable Ibuprofen Unknown Drug Allergy Active Information temporarily unavailable Motrin Unknown Drug Allergy Active Information temporarily unavailable Codeine Unknown Drug Allergy Active Information temporarily unavailable Penicillin Unknown Drug Allergy Active Reason For Referral No Information Medications Medication SIG (Take, Route, Frequency, Duration) Notes Start Date End Date Status Famotidine PRN Active Loratadine 10 MG 1 tablet Orally Once a day PRN 05/21/2016 Not-Taking Omeprazole Not-Takin g ASO Ankle/Foot Stablizing AFO As directed Wear Daily; Duration: as needed 01/25/2020 Active Fluticasone Propionate Not-Taking Vitamin D 1000 UNIT 1 tablet Orally Once a day 05/21/2016 Active Fluticasone Furoate Not-Taking Linzess Active Gabapentin Not-Takin g Levothyroxine Sodium 75 MCG TAKE 1/2 TABLET ON WEDNESDAY,WEDNESDAY AND WEDNESDAY AND 1 TABLET OTHER DAYS Oral; Duration: 30 Active Famotidine 10 MG 1 tablet as needed Orally Twice a day PRN Not-Taking Calcium + D Active Primidone 50 MG Oral; Duration: 90 Days Not-Taking Atorvastatin Calcium Active Laxative Active Fluzone High-Dose 0.5 ML TO BE ADMINISTERED BY PHARMACIST FOR IMMUNIZATION Intramuscular; Duration: 1 Flu Shot Not-Taking Glucosamine Chondr Complex Not-Taking Vitamin C Not-Taking Tylenol Active Metamucil Not-Taking Colace Active Citrucel Active Cetirizine HCl PRN Activ e Immunizations Vaccine Route Administration Date Status Comme nts Influenza Unknown 02/29/2024 Administered Influenza Unknown 02/28/2025 Administered COVID-19 Pfizer BioNTech Vaccine Unknown 07/07/2020 [...] Problem Status W/U Status Risk Notes Problem Information temporarily unavailable Atherosclerosis of [place] artery of both lower extremities, with unspecified presence of clinical manifestation (I70.203) Active confirmed Vital Signs Heart Rate 60 /min 11/09/2024 Blood pressure diastolic 65 mm Hg 03/14/2025 Height 5 ft 3 in in 03/14/2025 Blood pressure systolic 120 mm Hg 03/14/2025 Weight 110 lbs 03/14/2025 BMI 19.48 kg/m2 03/14/2025 Procedures Procedure Date Ordered Date Performed Result Body Sit e 42141-MGUTGHL NAIL, 6 OR MORE 05/04/2024 N/A 21373-WRYH SKIN LESIONS, OVER 4 05/04/2024 N/A 61735-CTMSZTB NAIL, 6 OR MORE 11/09/2024 N/A 35418-PKMS SKIN LESIONS, 2 TO 4 11/09/2024 N/A 60037-VBMRIDL NAIL, 6 OR MORE 03/14/2025 N/A 86021-RRLQ SKIN LESIONS, 2 TO 4 03/14/2025 N/A Encounters Encounter Location Date Provider Diagnosis [address] [address] 05/04/2024 Álvaro Montgomery Atherosclerosis of [place] artery of both lower extremities, with unspecified presence of clinical manifestation I70.203 ; Tinea unguium B35.1 ; Pain in right toe(s) M79.674 and Pain in left toe(s) M79.[address] [address] 11/09/2024 Álvaro Montgomery Atherosclerosis of [place] artery of both lower extremities, with unspecified presence of clinical manifestation I70.203 ; Tinea unguium B35.1 ; Pain in right toe(s) M79.674 and Pain in left toe(s) M79.[address] [address] 03/14/2025 Álvaro Montgomery Atherosclerosis of [place] artery of both lower extremities, with unspecified presence of clinical manifestation I70.203 ; Tinea unguium B35.1 ; Pain in right toe(s) M79.674 and Pain in left toe(s) M79.[address] [address] 08/24/2024 Álvaro Montgomery Assessments Encounter Date Diagnosis (ICD Code) Assessment Notes Treatment Notes Treatment Clinical Notes Section Notes 05/04/2024 Tinea unguium (ICD-10 - B35.1) 05/04/2024 Atherosclerosis of [place] artery of both lower extremities, with unspecified presence of clinical manifestation (ICD-10 - I70.203) 11/09/2024 Tinea unguium (ICD-10 - B35.1) 11/09/2024 Atherosclerosis of [place] artery of both lower extremities, with unspecified presence of clinical manifestation (ICD-10 - I70.203) 03/14/2025 Tinea unguium (ICD-10 - B35.1) 03/14/2025 Atherosclerosis of [place] artery of both lower extremities, with unspecified presence of clinical manifestation (ICD-10 - I70.203) 03/14/2025 Pain in right toe(s) (ICD-10 - M79.674) 05/04/2024 Pain in right toe(s) (ICD-10 - M79.674) 11/09/2024 Pain in right toe(s) (ICD-10 - M79.674) 03/14/2025 Pain in left toe(s) (ICD-10 - M79.675) 11/09/2024 Pain in left toe(s) (ICD-10 - M79.675) 05/04/2024 Pain in left toe(s) (ICD-10 - M79.675) Plan Of Treatment Pending Test Test Name Order Date 16065-XXKEZUK NAIL, 6 OR MORE 01/25/2020 11978-NCIPPGG NAIL, 6 OR MORE 04/15/2020 49812-JFLOGPZ NAIL, 6 OR MORE 09/12/2020 87032-LMMGHHP NAIL, 6 OR MORE 03/06/2021 71704-ZLFBRAE NAIL, 6 OR MORE 07/10/2021 22193-TYEIGML NAIL, 6 OR MORE 11/06/2021 15864-QLDFCNW NAIL, 6 OR MORE 03/26/2022 36434-SQHISFQ NAIL, 6 OR MORE 07/30/2022 85631-HDASJZX NAIL, 6 OR MORE 12/03/2022 36796-CYILSBN NAIL, 6 OR MORE 04/08/2023 45912-PUUZWCB NAIL, 6 OR MORE 08/19/2023 87878-OLNKRPY NAIL, 6 OR MORE 12/23/2023 64119-AXQBGGK NAIL, 6 OR MORE 05/04/2024 15805-TYYZBDR NAIL, 6 OR MORE 11/09/2024 13992-WNPFBGJ NAIL, 6 OR MORE 03/14/2025 14705-VZQE SKIN LESIONS, OVER 4 05/04/20 24 91387-QFFV SKIN LESIONS, 2 TO 4 12/23/19 24 25074-ZQOY SKIN LESIONS, 2 TO 4 08/19/19 24 10321-ETWC SKIN LESIONS, 2 TO 4 04/08/20 23 74331-KDHK SKIN LESIONS, 2 TO 4 12/04/19 23 43533-FZSM SKIN LESIONS, 2 TO 4 07/31/19 23 11736-TEDN SKIN LESIONS, 2 TO 4 03/26/20 22 10758-UKRA SKIN LESIONS, 2 TO 4 03/14/20 25 43412-JWHV SKIN LESIONS, 2 TO 4 11/10/19 25 Next Appt Details Provider Name:Álvaro Montgomery , 07/04/2025 10:00:00 AM, [address] [facility], [address], [place], [address], Insurance Providers Payer Name Payer Address Payer Phone Subscriber Number Group Number Insured Name Patient Relationship to Insured Coverage Start Date Coverage End Date Medicare [facility] [employer] [address] [place] [address] [id number] Marly Page Self - patient is the insured [employer] [address] [place] [address] [phone] [id number] Marly Page Self - patient is the [...] surgery, leg 10/29/22 Hospitalization History Reason Date(Month/Year) [place], accute sciatica 12/2020 [facility] [place] Lower leg & ankle right, Ultra sound lower right extremity 01/22/20
== END 2025-03-23 09:22 | disposition home or self-care (01) ==
LOC: HO.MAMMO 09:21
PROVIDERS: PCP Internal Medicine; Visit Provider Internal Medicine
DX: Z12.31 Encounter for screening mammogram for malignant neoplasm of breast (principal)
CPT/HCPCS: 77063; 77067

== ENCOUNTER → 2025-03-23 09:30 | Outpatient (BNV) | payer MEDICARE, SELFPAY | PROVIDERS: PCP Internal Medicine; Visit Provider Internal Medicine | DX: Z12.31 Encounter for screening mammogram for malignant neoplasm of breast (principal) | CPT/HCPCS: 77063; 77067 ==

== ENCOUNTER 2025-04-12 08:17 | Outpatient (AMB) | payer MEDICARE, SELFPAY ==
--- OUTSIDE RECORDS SUMMARY | 2024-08-31 03:45 | XMS_ITS ---
[facility] Address [address] [place] [address] Care Team Providers Care Retail Management Trainee Name Role Phone Craig HAZEL, Lizbeth Primary Care Provider Unavail Álvaro Castro Unavailable [phone] Encounters Encounter Location Date Provider Diagnosis [address] [address] 08/31/2024 Álvaro Montgomery Plan Of Treatment Next Appt Details Provider Name:Álvaro Montgomery , 07/04/2025 10:00:00 AM, [address] [place] [address], [phone], Progress Notes * Marly ORTIZ DDOB:[birth year] (85 yo F)Acc No.[id number]:08/31/2024 Progress Note Patient: Heather NEGRETE Marly Bai Provider: Gustavo Montgomery DPM :1940 A ge:84 Y S ex:Female Date:08/31/2024 Address:[address] [place] [address] [address], [place] [phone] Pcp:Lizbeth Srinivasan MD Subjective: * Chief Complaints: * * Medical History: Objective: * Vitals: Assessment: Plan: * Treatment: * Images: * The named appointment provid er may or may not be the originator of this progress note, and it is not deemed complete until electronically signed by the appointment provider. Sign off status: Pending * Provider: Gustavo Montgomery DPM Date: 0 08/31/2024 Generated for Jennifer Maier on: 06/12/2024 08:35 AM EST
--- NOTE | 2025-04-12 08:23 | MHC.OFFVIS ---
Vital Signs 04/12/25 08:24 Height 5 ft 2.5 in Weight 109 lb BMI 19.6 BP 106/50 L Blood Pressure Location Lt brachial Position Sitting Pulse 62 Intake Visit Reasons: 3 month follow up IBS Intake Note: Patient 3 month follow up IBS Patient cc: nauseas on and off, constipation, acid reflux and poor appetite. Day Habilitation Specialist Required: No Accompanied by: Self / Same As Patient Allergies penicillin G Allergy (Intermediate, Verified 04/12/25 08:23) rash aspirin Adverse Reaction (Intermediate, Verified 04/12/25 08:23) Contraindicated due to Cerebral vascular maformat Codeine Sulfate Allergy (Intermediate, Uncoded 02/21/25 10:04) rash Ibuprofen Allergy (Intermediate, Uncoded 02/21/25 10:04) hives HPI HPI 3 month follow up IBS: Details: Patient is a 84-year-old female with PMH of hypothyroidism, hyperlipidemia and GERD. She is accompanied by Amber nurse from [facility]. FU for IBS/chronic constipation and regimen adjustments. Since last seen 01-10-25, pt reports variable BM patterns, with intermittent periods of satisfactory regularity but continued unpredictability. No impactions or episodes of severe diarrhea reported over the past 3 months. Pelvic floor PT attended and reported as helpful. Pattern of hard stool at rectal vault remains, often requiring glycerin suppositories (solo/double) 2x/wk to self-clear. Linzess continues to aid passage when used, but effects are variable?rapid response at times, with delayed action and residual benefit seen over multiple days on occasion. Still supplementing with daily Citrucel and docusate; Miralax prn in anticipatory and corrective fashion (pt titrates to avoid diarrhea). Occasional bisacodyl 5mg used. Small number of loose stools may follow larger BM. Ongoing anxiety around BM predictability, especially in relation to upcoming social obligations. Reports queasiness after frequent or stacked laxative use; denies true N/V. Continues fiber/prune intake though not full daily integration. Weight stable with minor drift; pt tracking averages( 108.6lb) per weekly logs No red flag sx. No recent GI flares, hospitalizations, or urgent care visits. [facility] Medical History Weight loss Skin cancer of arm Skin cancer, basal cell Tethered cord REM behavioral disorder Writers' cramp Cervical dystonia Urge urinary incontinence Pure hypercholesterolemia Chronic constipation Jaw pain Right hand pain Familial tremor GERD (gastroesophageal reflux disease) Voice hoarseness Hypothyroidism Surgical History History of colonoscopy S/P TC-BSO H/O inguinal hernia repair Hx of tonsillectomy Family History Mother IBS (irritable bowel syndrome) Skin cancer Dementia Father Heart disease Social History Household Members Other:: Rehab Housing: Apartment Alcohol intake: current Alcohol intake frequency: a few times a month Alcohol type: wine Patient Tobacco Use Status: Never used Tobacco e-Cigarette/Vaping Use: Never Used Second Hand Smoke Exposure: No service: No Current occupational status: retired Cognitive needs: No Hearing needs: No Vision needs: Yes Review of Systems Const Reports as per HPI ENT Reports as per HPI Card Reports as per HPI Resp Reports as per HPI GI Reports as per HPI Reports as per HPI Physical Exam Vital Signs: Last Vital Signs Pulse 62 04/12/25 08:24 BP 106/50 L 04/12/25 08:24 BMI result Body Mass Index 19.6 Const General: healthy appearing, no acute distress and well developed Nutritional Appearance: average body habitus Orientation/consciousness: patient oriented x3 HEENT Head: Yes normal to inspection, Yes normocephalic and Yes atraumatic Face and sinus: Yes normal facial exam Eyes General: appearance normal, both eyes and all related structures Neck Neck: Yes normal visual inspection Resp Effort & Inspection: normal respiratory effort, able to speak in complete sentences, no tracheal deviation and symmetric chest movement Cardio Jugular venous distension: no JVD GI Inspection: Yes normal to inspection and No distended Palpation (GI): Soft to palpation, not firm, nontender and No hepatosplenomegaly present Auscultation: normal bowel sounds Neuro General: patient oriented x3 Gait exam (Neuro): Normal gait present Psych Appearance: grossly normal Mental Status: mental status grossly normal Speech and movement: Normal speech and movement present Affect: normal affect Attitude: cooperative Thought process: Normal thought process present Thought content: Normal thought content present Insight: Good insight present (Psych) Judgement: Good judgement present (Psych) Assessment & Plan Assessment & Plan (1) IBS (irritable bowel syndrome): Comment: 12/28/24 Colonoscopy complete with adequate prep-Normal colon mucosa, Diverticulosis, Internal hemorrhoids Code(s): K58.9 - Irritable bowel syndrome, unspecified Category: Medical Qualifiers: Irritable bowel syndrome type: with constipation Qualified Code(s): K58.1 - Irritable bowel syndrome with constipation Plan: Persistent symptoms/signs of rectal atony; intermittent benefit from current pharmacological/lifestyle interventions/PT. Seeking to optimize regimen to limit rescue agents, reduce BM anxiety, prevent stool retention, and enhance QOL. Additional testing: - Consider anorectal manometry (per PT suggestion) to better quantify rectal pressure/tone and guide therapy. Medications: - Continue Linzess titration per symptoms; pt to use as directed, not exceeding prescribed dose. - Continue docusate and Citrucel daily. - Miralax as needed, encourage anticipatory dosing rather than correction post-constipation, titrate to avoid diarrhea. - Glycerin suppository for rescue, single/double as needed if no BM in 2?3 days. - Occasional bisacodyl 5mg prn. - No new Rx at this time; reassess for alternative prokinetics or rectal stimulants after further review/research and possible manometry. Lifestyle Recommendations: - Continue/integrate daily fiber via diet/supplements (maintain >=?3 prunes/day), hydration emphasized. - Maintain pelvic floor PT; reinforce PT strategies for rectal strengthening. - Recommend continued symptom/BM diary?record type, frequency, associated symptoms, triggers, and laxative use for ongoing optimization. - Provided education regarding medication/laxative timing/prevention strategies to minimize anxiety and maximize control over BM schedule. Referrals/Coordination of Care: - Continue pelvic floor PT (Nicol); coordinate w/ therapist re: further PT-based interventions. - No new referrals indicated at present. Follow-Up Plan: - Portal message in 1?2 weeks with further research, management strategies, or medication/lifestyle regimen suggestions. - Office FU in 3 months or earlier prn for increased symptoms, unintended weight loss, or red flag sx. - Ongoing weight monitoring; maintain stable trend. Plan Follow-up 3 months or sooner as needed Time: I spent a total of 40 minutes on the date of encounter which includes: Preparing to see the patient (reviewed previous documentation, test results and medical history) Performing a medically appropriate exam and/or evaluation Ordering medications, tests, and procedures Documenting clinical information in the health record Coding Level of Care Code Established Pt Est Pt Level 5 (70803) Patient Type Established Diagnoses Irritable bowel syndrome with constipation K58.1 Irritable bowel syndrome type: with constipation
[2025-04-12 08:24] VITALS: BP 106/50; PULSE 62; BMI 19.6
--- OUTSIDE RECORDS SUMMARY | 2025-04-12 08:36 | XMS_ITS | Patient Health Record ---
[facility] Address [address] [place] [address] Care Team Providers Care Golf Cart Attendant Name Role Phone Craig HAZEL, Lizbeth Primary Care Provider Unavail able Álvaro Montgomery Unavailable [phone] Allergies Allergen (clinical drug ingredient) Drug/Non Drug [...] Pfizer BioNTech Vaccine Unknown 02/29/2024 Adm inistered Influenza Unknown 02/29/2024 Administered Influenza Unknown 02/28/2025 Administered Social History Tobacco Use: Social History Observation [...] atherosclerosis of arteries of lower limbs (disorder) ([id number] ) Atherosclerosis of [place] artery of both lower extremities, with unspecified presence of clinical manifestation (I70.203) Active confirmed Vital Signs Heart Rate 60 /min 11/09/2024 Blood pressure diastolic 65 mm Hg 03/14/2025 Height 5 ft 3 in in 03/14/2025 Blood pressure systolic 120 mm Hg 03/14/2025 Weight 110 lbs 03/14/2025 BMI 19.48 kg/m2 03/14/2025 Procedures Procedure Date Ordered Date Performed Result Body Sit e 05972-CTKFVVL NAIL, 6 OR MORE 05/04/2024 N/A 55195-JPFV SKIN LESIONS, OVER 4 05/04/2024 N/A 60054-NECTVUK NAIL, 6 OR MORE 11/09/2024 N/A 27277-CPMS SKIN LESIONS, 2 TO 4 11/09/2024 N/A 89147-WIVJBHP NAIL, 6 OR MORE 03/14/2025 N/A 61448-JYSP SKIN LESIONS, 2 TO 4 03/14/2025 N/A Encounters Encounter Location Date Provider Diagnosis [address] [address] 05/04/2024 Álvaro Montgomery Atherosclerosis of [place] artery of both lower extremities, with unspecified presence of clinical manifestation I70.203 ; Tinea unguium B35.1 ; Pain in right toe(s) M79.674 and Pain in left toe(s) M79.[address] [address] 11/09/2024 Álvaro Montgomery Atherosclerosis of [place] artery of both lower extremities, with unspecified presence of clinical manifestation I70.203 ; Tinea unguium B35.1 ; Pain in right toe(s) M79.674 and Pain in left toe(s) M79.[address] [address] 03/14/2025 Álvaro Montgomery Atherosclerosis of [place] artery of both lower extremities, with unspecified presence of clinical manifestation I70.203 ; Tinea unguium B35.1 ; Pain in right toe(s) M79.674 and Pain in left toe(s) M79.[address] [address] 08/24/2024 Álvaro Montgomery Assessments Encounter Date Diagnosis (ICD Code) Assessment Notes Treatment Notes Treatment Clinical Notes Section Notes 05/04/2024 Tinea unguium (ICD-10 - B35.1) 05/04/2024 Atherosclerosis of [place] artery of both lower extremities, with unspecified presence of clinical manifestation (ICD-10 - I70.203) 11/09/2024 Tinea unguium (ICD-10 - B35.1) 11/09/2024 Atherosclerosis of [place] artery of both lower extremities, with unspecified presence of clinical manifestation (ICD-10 - I70.203) 03/14/2025 Tinea unguium (ICD-10 - B35.1) 03/14/2025 Atherosclerosis of [place] artery of both lower extremities, with unspecified [...] Treatment Pending Test Test Name Order Date 82251-AWCYVGO NAIL, 6 OR MORE 01/25/2020 99109-SPBSMUD NAIL, 6 OR MORE 04/15/2020 92214-GGHJTVS NAIL, 6 OR MORE 09/12/2020 21026-BKNGOAG NAIL, 6 OR MORE 03/06/2021 70043-NEDHPKH NAIL, 6 OR MORE 07/10/2021 44605-YTVMSWR NAIL, 6 OR MORE 11/06/2021 78093-NTYIGEW NAIL, 6 OR MORE 03/26/2022 05945-RBPYKPX NAIL, 6 OR MORE 07/30/2022 88484-ABIBGTF NAIL, 6 OR MORE 12/03/2022 84830-FEOZMSK NAIL, 6 OR MORE 04/08/2023 70675-GYUMUPV NAIL, 6 OR MORE 08/19/2023 67997-MDXVKZK NAIL, 6 OR MORE 12/23/2023 44345-WEVTTMU NAIL, 6 OR MORE 05/04/2024 10799-OIHCFKT NAIL, 6 OR MORE 11/09/2024 73091-FSDMHJL NAIL, 6 OR MORE 03/14/2025 33394-MTBA SKIN LESIONS, OVER 4 05/04/20 24 70860-BQHX SKIN LESIONS, 2 TO 4 12/23/19 24 45805-NCWL SKIN LESIONS, 2 TO 4 08/19/19 24 79421-MLYD SKIN LESIONS, 2 TO 4 04/08/20 23 69961-YJUZ SKIN LESIONS, 2 TO 4 12/04/19 23 49621-HJIE SKIN LESIONS, 2 TO 4 07/31/19 23 40775-KQDS SKIN LESIONS, 2 TO 4 03/26/20 22 91076-QOOZ SKIN LESIONS, 2 TO 4 03/14/20 25 37913-HNIG SKIN LESIONS, 2 TO 4 11/10/19 25 Next Appt Details Provider Name:Álvaro Montgomery , 07/04/2025 10:00:00 AM, [address] [facility], [address], [place], [address], Insurance Providers Payer Name Payer Address Payer Phone Subscriber Number Group Number Insured Name Patient Relationship to Insured Coverage Start Date Coverage End Date Medicare National [employer] [address] [place] [address] [id number] Marly Page Self - patient is the insured [employer] [address] [place] [address] [id number] Marly Page Self - patient is the [...] surgery, leg 10/29/22 Hospitalization History Reason Date(Month/Year) [place], accute sciatica 12/2020 [facility] [place] Lower leg & ankle right, Ultra sound lower right extremity 01/22/20
== END 2025-04-12 09:26 | disposition home or self-care (01) ==
LOC: HO.HGI 08:18
PROVIDERS: PCP Internal Medicine; Visit Provider Nurse Practitioner Family
DX: K58.1 Irritable bowel syndrome with constipation (principal)
CPT/HCPCS: 99215

== ENCOUNTER → 2025-04-12 08:17 | Outpatient (BNVA) | payer MEDICARE, SELFPAY | PROVIDERS: PCP Internal Medicine; Visit Provider Nurse Practitioner Family | DX: K58.1 Irritable bowel syndrome with constipation (principal); K21.9 Gastro-esophageal reflux disease without esophagitis; R11.0 Nausea | CPT/HCPCS: 99212 ==